=== PATIENT | male | born 1965 | race Hispanic/Latino ===

== ENCOUNTER 2017-08-31 09:46 | Emergency (ER) | payer MEDICAID ==
--- OUTSIDE RECORDS SUMMARY | 2017-08-31 09:48 | XMS REPORT | Clinical Summary ---
:1965 Author Organization [facility] Address [address] [place] [address] Care Team Providers Name Role Phone Db Jo Primary Care Provider Unavailable Allergies No Known Allergies Current Medications Prescription Sig. Disp. Refills Start Date End Date Status amLODIPine (NORVASC) 10 Take 10 mg by Active MG tablet mouth. carBAMazepine (TEGretol) Take 200 mg Active 200 mg tablet by mouth. escitalopram (LEXAPRO) 20 Take 20 mg by Active MG tablet mouth. gabapentin (NEURONTIN) Take 600 mg 10/29/2015 Active 600 MG tablet by mouth. hydrochlorothiazide Take 25 mg by Active (HYDRODIURIL) 25 MG mouth. tablet levETIRAcetam (KEPPRA) Take 500 mg Active 500 MG tablet by mouth. linaclotide (LINZESS) 145 Take by Active mcg capsule mouth. lisinopril Take 40 mg by Active (PRINIVIL,ZESTRIL) 40 MG mouth. tablet omeprazole OTC (PriLOSEC Take 20 mg by Active OTC) 20 MG EC tablet mouth. DOC-Q-LACE 100 mg capsule TAKE ONE 60 capsule 0 05/28/2016 Active CAPSULE BY MOUTH TWICE A DAY oxybutynin (DITROPAN) 5 Take 1 tablet 20 tablet 3 12/19/2015 MG tablet (5 mg total) 7 by mouth 3 (three) times a day. Active Problems Problem Noted Date Cancer of left kidney 01/28/2016 Kidney mass 01/28/2016 Left renal mass 12/27/2015 Calculus of kidney 11/16/2015 Left kidney mass 10/15/2015 Hepatitis C virus infection 10/15/2015 Immunizations Name Dates Previously Given Next Due INFLUENZA QUAD PF 12/28/2015 Family History Medical History Relation Name Comments No Known Problems Brother Prostate cancer Father No Known Problems Mother No Known Problems Sister Relation Name Status Comments Brother Alive Father Alive Mother Alive Sister Alive Social History Tobacco Use Types Packs/Day Years Used Date Light Tobacco Smoker Cigarettes 0.25 30 Tobacco Cessation: Ready to Quit: No; Counseling Given: Yes Alcohol Use Drinks/Week oz/Week Comments No Sex Assigned at Date Recorded Not on file Last Filed Vital Signs Not on file Plan of Treatment Health Maintenance Due Date Last Done Comments COLON CANCER SCREENING 09/21/2013 SHINGRIX VACCINE (#1) 09/21/2013 INFLUENZA VACCINE 09/16/2017 12/28/2015 Implants Implanted Type Area Suspect Artist Supervisor Device Expiration Model / Identifier Date Serial / Lot Hemostat Absrbl 4x4in Surgicel [place] - [id number] Cardiovascular ETHICON - [id number] / Implanted: Qty: 1 on 12/27/2015 by Flex Elizondo MD Implants / Stent Uretl S-Flx Kwart Retro-Inject 6fr 24cm - [id number] Peripheral or N/A: [employer] 02/16/2018 [id number] / Implanted: 12/17/2015 (Quantity not on file) Biliary Stents N/A / [id number] Clip Ligtng Hem-O-Adalid Endoscpc Aplr [facility] - [id number] Surgical N/A: WECK CLOSURE [id number] / Implanted: 12/27/2015 (Quantity not on file) Implants; N/A SYSTEMS / Expanders; Extenders; Surgical Wires Results Not on fileafter 08/30/2016 Insurance Payer Benefit Plan / Group Subscriber ID Type Phone Address [facility] [employer] [place] [address]
--- OUTSIDE RECORDS SUMMARY | 2017-08-31 09:48 | XMS REPORT | Clinical Summary ---
:1965 Author Organization [facility] Address [address] [place] [address] Phone Care Team Providers Name Role Phone Unavailable Primary Care Provider Unavailable Allergies Not on File Current Medications Not on file Active Problems Not on file Social History Tobacco Use Types Packs/Day Years Used Date Never Assessed Sex Assigned at Date Recorded Not on file Last Filed Vital Signs Not on file Plan of Treatment Not on file Results Not on fileafter 08/30/2016
--- NOTE | 2017-08-31 10:09 | ER ---
Nurse's Notes [facility] Name: Stef Dickson Age: 51 yrs Sex: Male : 1965 Arrival Date: 08/31/2017 Time: 09:49 Bed 24 Private MD: Db Ramirez Diagnosis: Irritant contact dermatitis Presentation: 08/31 09:52 Presenting complaint: Patient states: "I think I got into poison [place] or oak yesterday". aa5 Pt reports rash to whole body. Transition of care: patient was not received from another setting of care. Onset of symptoms was August 2017. Risk Assessment: Do you want to hurt yourself or someone else? Patient reports no desire to harm self or others. Initial Sepsis Screen: Does the patient meet any 2 criteria? No. Patient's initial sepsis screen is negative. Does the patient have a suspected source of infection? No. Patient's initial sepsis screen is negative. Care prior to arrival: None. 09:52 Method Of Arrival: Ambulatory aa5 09:52 Acuity: GLENN 4 aa5 Historical: - Allergies: 09:53 Seroquel; aa5 - PMHx: 09:53 Anxiety; AVM; Bipolar disorder; CVA; Headaches; Hypertension; Migraines; Seizures; aa5 - PSHx: 09:53 kidney cancer surgery; aa5 - Immunization history:: Adult Immunizations unknown. - Social history:: Smoking status: Patient uses tobacco products, smokes one pack cigarettes per day. - Ebola Screening: : No symptoms or risks identified at this time. Vital Signs: 09:54 BP 137 / 90; Pulse 71; Resp 18 S; Temp 97.6(TE); Pulse Ox 95% on R/A; Weight 84.82 kg aa5 (R); Height 5 ft. 5 in. (165.10 cm) (R); Pain 0/10; 09:54 Body Mass Index 31.12 (84.82 kg, 165.10 cm) aa5 ED Course: 09:49 Patient arrived in ED. mr 09:50 Db Ramirez MD is Private Physician. mr 09:53 Triage completed. aa5 09:53 Arm band placed on. aa5 09:56 Cat Tolentino FNP-C is [facility]. snw 09:56 Jasiel Stinson MD is Attending Physician. snw 10:07 Db Ramirez MD is Referral Physician. snw 10:12 Julius Decker, RN is Primary Nurse. sg 10:20 Patient did not have IV access during this emergency room visit. iw 10:20 No provider procedures requiring assistance completed. iw Administered Medications: 10:12 Drug: Pepcid 20 mg Route: PO; sg 10:20 Follow up: Response: No adverse reaction iw 10:12 Drug: ZyrTEC - Cetirizine 10 mg Route: PO; sg 10:20 Follow up: Response: No adverse reaction iw 10:12 Drug: predniSONE 20 mg Route: PO; sg 10:20 Follow up: Response: No adverse reaction iw Outcome: 10:09 Discharge ordered by . snw 10:20 Discharged to home ambulatory, with significant other. iw 10:20 Condition: stable 10:20 Discharge instructions given to patient, Instructed on discharge instructions, follow up and referral plans. medication usage, Demonstrated understanding of instructions, follow-up care, medications, Prescriptions given X 3. 10:22 Patient left the ED. iw Signatures: Julius Decker, RN RN Cat Tolentino, LEVEL VIAL INSPECTOR-C LEVEL VIAL INSPECTOR-Csnw Kimberly Juan mr Alena Lewis RN LEANA Patti Hopkins, RN RN aa5
--- NOTE | 2017-08-31 10:09 | EDPHYS ---
Physician Documentation [facility] Name: Stef Dickson Age: 51 yrs Sex: Male : 1965 Arrival Date: 08/31/2017 Time: 09:49 Bed 24 Private MD: Db Ramirez ED Physician Jasiel Stinson HPI: 08/31 10:16 This 51 yrs old Male presents to ER via Ambulatory with complaints of Poison snw Debbie. 10:16 The patient's rash thought to be caused by Dermatitis. The rash is located on the body snw diffusely. The rash can be described as erythematous, patchy. Onset: The symptoms/episode began/occurred suddenly, yesterday. Associated signs and symptoms: Pertinent positives: itching. Severity of symptoms: At their worst the symptoms were moderate. The patient has experienced a previous episode. It is unknown whether or not the patient has recently seen a physician. Historical: - Allergies: 09:53 Seroquel; aa5 - PMHx: 09:53 Anxiety; AVM; Bipolar disorder; CVA; Headaches; Hypertension; Migraines; Seizures; aa5 - PSHx: 09:53 kidney cancer surgery; aa5 - Immunization history:: Adult Immunizations unknown. - Social history:: Smoking status: Patient uses tobacco products, smokes one pack cigarettes per day. - Ebola Screening: : No symptoms or risks identified at this time. ROS: 10:17 Constitutional: Negative for fever, chills, and weight loss, Eyes: Negative for injury, snw pain, redness, and discharge, ENT: Negative for injury, pain, and discharge, Neck: Negative for injury, pain, and swelling, Cardiovascular: Negative for chest pain, palpitations, and edema, Respiratory: Negative for shortness of breath, cough, wheezing, and pleuritic chest pain, Abdomen/GI: Negative for abdominal pain, nausea, vomiting, diarrhea, and constipation, Back: Negative for injury and pain, : Negative for injury, bleeding, discharge, and swelling, MS/Extremity: Negative for injury and deformity, Neuro: Negative for headache, weakness, numbness, tingling, and seizure, Psych: Negative for depression, anxiety, suicide ideation, homicidal ideation, and hallucinations. 10:17 Skin: Positive for rash. Exam: 10:13 Head/Face: Normocephalic, atraumatic. Eyes: Pupils equal round and reactive to light, snw extra-ocular motions intact. Lids and lashes normal. Conjunctiva and sclera are non-icteric and not injected. Cornea within normal limits. Periorbital areas with no swelling, redness, or edema. ENT: Nares patent. No nasal discharge, no septal abnormalities noted. Tympanic membranes are normal and external auditory canals are clear. Oropharynx with no redness, swelling, or masses, exudates, or evidence of obstruction, uvula midline. Mucous membranes moist. Neck: Trachea midline, no thyromegaly or masses palpated, and no cervical lymphadenopathy. Supple, full range of motion without nuchal rigidity, or vertebral point tenderness. No Meningismus. Chest/axilla: Normal chest wall appearance and motion. Nontender with no deformity. No lesions are appreciated. Cardiovascular: Regular rate and rhythm with a normal S1 and S2. No gallops, murmurs, or rubs. Normal PMI, no JVD. No pulse deficits. Respiratory: Lungs have equal breath sounds bilaterally, clear to auscultation and percussion. No rales, rhonchi or wheezes noted. No increased work of breathing, no retractions or nasal flaring. Abdomen/GI: Soft, non-tender, with normal bowel sounds. No distension or tympany. No guarding or rebound. No evidence of tenderness throughout. Back: No spinal tenderness. No costovertebral tenderness. Full range of motion. MS/ Extremity: Pulses equal, no cyanosis. Neurovascular intact. Full, normal range of motion. Neuro: Awake and alert, GCS 15, oriented to person, place, time, and situation. Cranial nerves II-XII grossly intact. Motor strength 5/5 in all extremities. Sensory grossly intact. Cerebellar exam normal. Normal gait. 10:13 Constitutional: The patient appears alert, awake, anxious. 10:13 Skin: Appearance: normal except for affected area, contact dermatitis. Vital Signs: 09:54 BP 137 / 90; Pulse 71; Resp 18 S; Temp 97.6(TE); Pulse Ox 95% on R/A; Weight 84.82 kg aa5 (R); Height 5 ft. 5 in. (165.10 cm) (R); Pain 0/10; 09:54 Body Mass Index 31.12 (84.82 kg, 165.10 cm) aa5 MDM: 10:09 Patient medically screened. snw 10:13 Data reviewed: vital signs, nurses notes. Data interpreted: Pulse oximetry: on room air snw is 95 %. Interpretation: acceptable. Counseling: I had a detailed discussion with the patient and/or guardian regarding: the historical points, exam findings, and any diagnostic results supporting the discharge/admit diagnosis, the presence of at least one elevated blood pressure reading (>120/80) during this emergency department visit, the need for outpatient follow up, to return to the emergency department if symptoms worsen or persist or if there are any questions or concerns that arise at home. Special discussion: Based on the history and exam findings, there is no indication for further emergent testing or inpatient evaluation. I discussed with the patient/guardian the need to see the primary care provider for further evaluation of the symptoms. Medical screen evaluation completed. [facility] emergency medical condition absent. Administered Medications: 10:12 Drug: Pepcid 20 mg Route: PO; sg 10:20 Follow up: Response: No adverse reaction iw 10:12 Drug: ZyrTEC - Cetirizine 10 mg Route: PO; sg 10:20 Follow up: Response: No adverse reaction iw 10:12 Drug: predniSONE 20 mg Route: PO; sg 10:20 Follow up: Response: No adverse reaction iw Disposition: 08/31/17 10:09 Discharged to Home. Impression: Irritant contact dermatitis. - Condition is Stable. - Discharge Instructions: Contact Dermatitis, Hypertension. - Prescriptions for Pepcid 20 mg Oral Tablet - take 1 tablet by ORAL route every 12 hours for 10 days; 20 tablet. Zyrtec 10 mg Oral Tablet - take 1 tablet by ORAL route once daily As needed; 20 tablet. Prednisone 20 mg Oral Tablet - take 2 tablet by ORAL route once daily for 5 days; 10 tablet. - Medication Reconciliation Form, Thank You Letter, Antibiotic Education, Prescription Opioid Use form. - Follow up: Db Ramirez MD; When: 2 - 3 days; Reason: Recheck today's complaints, Continuance of care, Re-evaluation by your physician. Follow up: Emergency Department; When: As needed; Reason: Worsening of condition. Addendum: 09/03/2017 06:15 Co-signature as Attending Physician, Jasiel Stinson MD. g s Signatures: Julius Decker RN RN sg Cat Tolentino, SOLID WASTE ENGINEER-C SOLID WASTE ENGINEER-Csnw Alena Lewis RN RN iw Patti Hopkins RN RN aa5 Jasiel Stinson MD MD gs Corrections: (The following items were deleted from the chart) 08/31 10:22 10:09 08/31/2017 10:09 Discharged to Home. Impression: Irritant contact dermatitis. iw Condition is Stable. Forms are Medication Reconciliation Form, Thank You Letter, Antibiotic Education, Prescription Opioid Use. Follow up: Db Ramirez; When: 2 - 3 days; Reason: Recheck today's complaints, Continuance of care, Re-evaluation by your physician. Follow up: Emergency Department; When: As needed; Reason: Worsening of condition. snw
[2017-08-31] MEDS ORDERED: predniSONE 10 MG TAB ONE (10:12)
[2017-08-31] MEDS ORDERED: CETIRIZINE HCL 5 MG TABLET ONE (10:12)
[2017-08-31] MEDS ORDERED: FAMOTIDINE 20 MG TAB ONE (10:13)
[2017-08-31 10:27] VITALS: BP 137/90; TEMP 97.6; O2SAT 95
== END 2017-08-31 10:22 | disposition home or self-care (01) ==
LOC: ER 09:46
DX: L23.7 Allergic contact dermatitis due to plants, except food (principal); I10 Essential (primary) hypertension; F17.210 Nicotine dependence, cigarettes, uncomplicated; Z86.73 Personal history of transient ischemic attack (TIA), and cerebral infarction without residual deficits; Z88.8 Allergy status to other drugs, medicaments and biological substances
CPT/HCPCS: 99283; J7512

== ENCOUNTER 2018-07-05 02:27 | Emergency (ER) | payer MEDICAID ==
--- OUTSIDE RECORDS SUMMARY | 2018-07-05 02:31 | XMS REPORT | Clinical Summary ---
:1965 Author Organization [facility] Address [address] [place] [address] Care Team Providers Name Role Phone Unavailable Primary Care Provider Unavailable Allergies Not on File Medications Not on file Active Problems Not on file Social History Tobacco Use Types Packs/Day Years Used Date Never Assessed Sex Assigned at Date Recorded Not on file Job Start Date Occupation Industry Not on file Not on file Not on file Travel History Travel Start Travel End No recent travel history available. Last Filed Vital Signs Not on file Plan of Treatment Not on file Results Not on fileafter 07/04/2017 Insurance Payer Benefit Plan / Group Subscriber ID Type Phone Address [employer] [place] xxxxxxxxx
--- OUTSIDE RECORDS SUMMARY | 2018-07-05 02:31 | XMS REPORT | Clinical Summary ---
:1965 Author Organization [facility] Address [address] [place] [address] Care Team Providers Name Role Phone Db Jo Primary Care Provider Unavailable Allergies No Known Allergies Medications Medication Sig Dispensed Refills Start Date End Date Status amLODIPine (NORVASC) 10 MG Take 10 mg by 0 Active tablet mouth. carBAMazepine (TEGretol) Take 200 mg 0 Active 200 mg tablet by mouth. escitalopram (LEXAPRO) 20 Take 20 mg by 0 Active MG tablet mouth. gabapentin (NEURONTIN) 600 Take 600 mg 0 10/29/2015 Active MG tablet by mouth. hydrochlorothiazide Take 25 mg by 0 Active (HYDRODIURIL) 25 MG tablet mouth. levETIRAcetam (KEPPRA) 500 Take 500 mg 0 Active MG tablet by mouth. linaclotide (LINZESS) 145 Take by 0 Active mcg capsule mouth. lisinopril Take 40 mg by 0 Active (PRINIVIL,ZESTRIL) 40 MG mouth. tablet omeprazole OTC (PriLOSEC Take 20 mg by 0 Active OTC) 20 MG EC tablet mouth. DOC-Q-LACE 100 mg capsule TAKE ONE 60 capsule 0 05/28/2016 Active CAPSULE BY MOUTH TWICE A DAY Active Problems Problem Noted Date Cancer of left kidney 01/28/2016 Cancer Staging: Pathologic stage from 12/27/2015: Stage I (T1b, N0, cM0) - Signed by Flex Elizondo on 06/25/2016 Kidney mass 01/28/2016 Left renal mass 12/27/2015 [...] Last Done Comments COLON CANCER SCREENING 09/21/2013 SHINGLES VACCINES (#1) 09/21/2013 INFLUENZA VACCINE 09/16/2018 12/28/2015, 01/16/2014 Implants Implanted Type Area Food Safety Scientist Device Shelf Model / Identifier Expiration Serial / Date Lot Hemostat Absrbl 4x4in Surgicel [place] - [id number] Cardiovascular ETHICON - 2083 / Implanted: Qty: 1 on 12/27/2015 by Flex Elizondo MD Implants / Stent Uretl S-Flx Kwart Retro-Inject 6fr 24cm - [id number] Peripheral or N/A: [employer] 02/16/2018 [id number] / Implanted: 12/17/2015 (Quantity not on file) Biliary Stents N/A / [id number] Clip Ligtng Hem-O-Adalid Endoscpc Aplr [facility] - [id number] Surgical N/A: WECK CLOSURE [id number] / Implanted: 12/27/2015 (Quantity not on file) Implants; N/A SYSTEMS / Expanders; Extenders; Surgical Wires Results Not on fileafter 07/04/2017 Advance Directives Patient has advance care planning documents, and code status on file. For more information, please contact:[address] [place] [address] Code Status Date Activated Date Inactivated Comments Full Code 12/27/2015 3:52 PM 12/29/2015 2:44 PM Code Status decision reached by: Patient
--- OUTSIDE RECORDS SUMMARY | 2018-07-05 02:31 | XMS REPORT ---
:1965 Author Organization [employer] Care Team Providers Name Role Phone Melvin James Provider Role Unavailable Allergies No Known Allergies Problems Problem Type Condition Code Onset Dates Condition Status Problem History of renal cell carcinoma Z85.528 Active Problem Gastroesophageal reflux disease K21.9 Active without esophagitis Problem Bipolar affective disorder, F31.9 Active remission status unspecified Problem Seizures R56.9 Active Problem Essential (primary) hypertension I10 Active Problem Hypertriglyceridemia E78.1 Active Problem Chronic hepatitis C without hepatic B18.2 Active coma Problem Primary insomnia F51.01 Active Problem Depression with anxiety F41.8 Active Problem History of stroke Z86.73 Active Medications No Known Medications Results No Known Results Summary Purpose [employer] Submission
[2018-07-05 03:19] LABS: Absolute Lymphocytes (CBC) 1.2 K/uL (0.7-4.9); Absolute Monocytes 1.1 K/uL (0.1-1.3); Absolute Neutrophil 8.3 K/uL (1.8-8.0); Basophils % 0.7 % (0-1.3); Eosinophils % 0.8 % (0-4.4); Hematocrit 47.7 % (39.6-49.0); Lymphocytes % 11.3 % (15.3-44.8); MPV 7.4 fL (7.6-11.3); Monocytes % 10.5 % (3.3-12.3); RBC Red Blood Cell Count 5.23 M/uL (4.33-5.43)
[2018-07-05] MEDS ORDERED: MORPHINE 2 MG/ML SYR ONE (03:29)
[2018-07-05] MEDS ORDERED: ONDANSETRON 4 MG/2 ML VIAL ONE (03:30)
[2018-07-05] MEDS ORDERED: NA CHLORIDE 0.9% 1,000 ML ONE (03:30)
[2018-07-05 03:37] LABS: ALT/SGPT 42 U/L (12-78); AST/SGOT 33 U/L (15-37); Albumin 3.7 g/dL (3.4-5.0); Alkaline Phosphatase 81 U/L (45-117); BUN Blood Urea Nitrogen 16 mg/dL (7-18); Bicarbonate 28 mmol/L (21-32); Bilirubin Total 0.4 mg/dL (0.2-1.0); Glucose Level 82 mg/dL (74-106); Potassium 3.6 mmol/L (3.5-5.1); Protein, Total 7.8 g/dL (6.4-8.2); Sodium Level 141 mmol/L (136-145)
--- NOTE | 2018-07-05 05:28 | EDPHYS ---
Physician Documentation [facility] Name: Stef Dickson Age: 52 yrs Sex: Male : 1965 Arrival Date: 07/05/2018 Time: 02:31 Bed 14 Private MD: ED Physician Zander Brower HPI: 07/05 04:22 This 52 yrs old Male presents to ER via Wheelchair with complaints of Leg Pain.tw4 04:22 The patient presents with pain. The complaints affect the left upper thigh, right upper tw4 thigh. Context: The problem was sustained at home, resulted from an unknown cause. Onset: The symptoms/episode began/occurred 2 day(s) ago. Modifying factors: The symptoms are alleviated by remaining still, the symptoms are aggravated by movement. Severity of symptoms: At their worst the symptoms were moderate, in the emergency department the symptoms are unchanged. Historical: - Allergies: 02:35 Seroquel; jb4 - Home Meds: 02:35 gabapentin Oral [Active]; hypertension medication for High Blood Pressure [Active]; jb4 Trazodone Oral [Active]; Lexapro Oral [Active]; - PMHx: 02:35 Anxiety; AVM; Bipolar disorder; CVA; Headaches; Hypertension; Migraines; Seizures; jb4 - PSHx: 02:35 brain surgery.; partial kidney removal; jb4 - Immunization history:: Adult Immunizations up to date. - Social history:: Smoking status: Patient uses tobacco products, smokes one-half pack cigarettes per day, Patient uses alcohol, occasionally. - Ebola Screening: : No symptoms or risks identified at this time. ROS: 04:22 Constitutional: Negative for fever, chills, and weight loss, Cardiovascular: Negative tw4 for chest pain, palpitations, and edema, Respiratory: Negative for shortness of breath, cough, wheezing, and pleuritic chest pain, Abdomen/GI: Negative for abdominal pain, nausea, vomiting, diarrhea, and constipation, Skin: Negative for injury, rash, and discoloration. 04:22 MS/extremity: Positive for decreased range of motion, pain, tenderness. Exam: 04:22 Constitutional: This is a well developed, well nourished patient who is awake, alert, tw4 and in no acute distress. Head/Face: Normocephalic, atraumatic. Chest/axilla: Normal chest wall appearance and motion. Nontender with no deformity. No lesions are appreciated. Cardiovascular: Regular rate and rhythm with a normal S1 and S2. No gallops, murmurs, or rubs. Normal PMI, no JVD. No pulse deficits. Respiratory: Lungs have equal breath sounds bilaterally, clear to auscultation and percussion. No rales, rhonchi or wheezes noted. No increased work of breathing, no retractions or nasal flaring. Abdomen/GI: Soft, non-tender, with normal bowel sounds. No distension or tympany. No guarding or rebound. No evidence of tenderness throughout. 04:22 Musculoskeletal/extremity: Extremities: noted in the right femoral area, left femoral area, left hip and right hip: ROM: limited active range of motion due to pain, limited passive range of motion due to pain, in the right leg and left leg. Vital Signs: 02:35 BP 146 / 89; Pulse 91; Resp 18; Temp 98.8(O); Pulse Ox 98% on R/A; Weight 72.57 kg (R); jb4 Height 5 ft. 4 in. (162.56 cm) (R); Pain 1/10; 03:30 BP 149 / 81; Pulse 78; Resp 16; Pulse Ox 99% on R/A; jb4 04:45 BP 149 / 80; Pulse 82; Resp 16; Pulse Ox 94% on R/A; jb4 05:00 BP 147 / 70; Pulse 87; Resp 18; Pulse Ox 99% on R/A; lp1 05:42 BP 135 / 86; Pulse 84; Resp 18; Pulse Ox 98% on R/A; lp1 02:35 Body Mass Index 27.46 (72.57 kg, 162.56 cm) jb4 MDM: 02:44 Patient medically screened. 4 07/05 03:06 Order name: CBC with Diff 4 07/05 03:06 Order name: CMP 4 07/05 03:06 Order name: CT Abd/Pelvis - W/Contrast tw4 Administered Medications: 03:20 Drug: NS 0.9% 1000 ml Route: IV; Rate: 1 bolus; Site: right wrist; 4 04:30 Follow up: Response: No adverse reaction; IV Status: Completed infusion; IV Intake: jb4 1000ml 03:22 Drug: Zofran 4 mg Route: IVP; Site: right wrist; jb4 03:50 Follow up: Response: No adverse reaction jb4 03:26 Drug: morphine 2 mg Route: IVP; Site: right wrist; jb4 03:50 Follow up: Response: No adverse reaction; Pain is unchanged, physician notified jb4 Disposition: 07/05/18 05:28 Discharged to Home. Impression: Constipation, unspecified. - Condition is Stable. - Discharge Instructions: Constipation, Adult, High-Fiber Diet. - Prescriptions for Miralax 17 gram/dose Oral - take 1 packet by ORAL route once daily dilute powder in 8 ounces of water or juice; 1 packet. - Medication Reconciliation Form, Thank You Letter, Antibiotic Education, Prescription Opioid Use form. - Follow up: Private Physician; When: Upon discharge from the Emergency Department; Reason: If symptoms return, Recheck today's complaints, Continuance of care. - Problem is new. - Symptoms have improved. Signatures: Dispatcher [employer] EDMD Brenda Green RN RN lp1 Josr Kilgore RN RN jb4 Zander Brower MD MD tw4 Corrections: (The following items were deleted from the chart) 05:43 05:28 07/05/2018 05:28 Discharged to Home. Impression: Constipation, unspecified. lp1 Condition is Stable. Forms are Medication Reconciliation Form, Thank You Letter, Antibiotic Education, Prescription Opioid Use. Follow up: Private Physician; When: Upon discharge from the Emergency Department; Reason: If symptoms return, Recheck today's complaints, Continuance of care. Problem is new. Symptoms have improved. tw4
--- NOTE | 2018-07-05 05:28 | ER ---
Nurse's Notes [facility] Name: Stef Dickson Age: 52 yrs Sex: Male : 1965 Arrival Date: 07/05/2018 Time: 02:31 Bed 14 Private MD: Diagnosis: Constipation, unspecified Presentation: 07/05 02:35 Presenting complaint: Patient states: I have leg pain that started 2 days ago. jb4 02:35 Transition of care: patient was not received from another setting of care. Onset of jb4 symptoms was July 03, 2018. Risk Assessment: Do you want to hurt yourself or someone else? Patient reports no desire to harm self or others. Initial Sepsis Screen: Does the patient meet any 2 criteria? HR > 90 bpm. Yes Does the patient have a suspected source of infection? No. Patient's initial sepsis screen is negative. Care prior to arrival: None. 02:35 Method Of Arrival: Wheelchair jb4 02:35 Acuity: GLENN 4 jb4 Historical: - Allergies: 02:35 Seroquel; jb4 - Home Meds: 02:35 gabapentin Oral [Active]; hypertension medication for High Blood Pressure [Active]; jb4 Trazodone Oral [Active]; Lexapro Oral [Active]; - PMHx: 02:35 Anxiety; AVM; Bipolar disorder; CVA; Headaches; Hypertension; Migraines; Seizures; jb4 - PSHx: 02:35 brain surgery.; partial kidney removal; jb4 - Immunization history:: Adult Immunizations up to date. - Social history:: Smoking status: Patient uses tobacco products, smokes one-half pack cigarettes per day, Patient uses alcohol, occasionally. - Ebola Screening: : No symptoms or risks identified at this time. Screenin:48 Abuse screen: Denies threats or abuse. Nutritional screening: No deficits noted. jb4 Tuberculosis screening: No symptoms or risk factors identified. Fall Risk Gait- Impaired (20 pts.). Total Madden Fall Scale indicates No Risk (0-24 pts). Assessment: 02:48 General: Appears in no apparent distress. uncomfortable, Behavior is calm, cooperative, jb4 appropriate for age, Pt reports lifting heavy pallets 2 days ago prior to having pain. Pt states " Earlier tonight I saw bulging veins when it was hurting.". Pain: Complains of pain in right femoral area and left femoral area Pain does not radiate. Pain currently is 1 out of 10 on a pain scale. at worst was 10 out of 10 on a pain scale. Quality of pain is described as stabbing, Pain began 2-3 days ago. Is intermittent. Neuro: Level of Consciousness is awake, alert, obeys commands, Oriented to person, place, time, situation. Cardiovascular: Patient's skin is warm and dry. Respiratory: Airway is patent Respiratory effort is even, unlabored, Respiratory pattern is regular, symmetrical. GI: No signs and/or symptoms were reported involving the gastrointestinal system. : No signs and/or symptoms were reported regarding the genitourinary system. EENT: No signs and/or symptoms were reported regarding the EENT system. Derm: Skin is intact, Skin is pink, warm \\T\\ dry. Musculoskeletal: Circulation, motion, and sensation intact. Range of motion: intact in all extremities. 03:28 Reassessment: Patient appears in no apparent distress at this time. Patient and/or jb4 family updated on plan of care and expected duration. Pain level reassessed. Patient is alert, oriented x 3, equal unlabored respirations, skin warm/dry/pink. 03:50 Reassessment: Pt reports that the pain medication did not help, provider notified, no jb4 new orders at this time. 04:30 Reassessment: Patient appears in no apparent distress at this time. Patient and/or jb4 family updated on plan of care and expected duration. Pain level reassessed. Patient is alert, oriented x 3, equal unlabored respirations, skin warm/dry/pink. 05:15 Reassessment: Patient resting, eyes closed, respirations unlabored. lp1 Vital Signs: 02:35 BP 146 / 89; Pulse 91; Resp 18; Temp 98.8(O); Pulse Ox 98% on R/A; Weight 72.57 kg (R); jb4 Height 5 ft. 4 in. (162.56 cm) (R); Pain 02/25; 03:30 BP 149 / 81; Pulse 78; Resp 16; Pulse Ox 99% on R/A; jb4 04:45 BP 149 / 80; Pulse 82; Resp 16; Pulse Ox 94% on R/A; jb4 05:00 BP 147 / 70; Pulse 87; Resp 18; Pulse Ox 99% on R/A; lp1 05:42 BP 135 / 86; Pulse 84; Resp 18; Pulse Ox 98% on R/A; lp1 02:35 Body Mass Index 27.46 (72.57 kg, 162.56 cm) jb4 ED Course: 02:31 Patient arrived in ED. es 02:35 Josr Kilgore, RN is Primary Nurse. jb4 02:35 Arm band placed on right wrist. jb4 02:42 Zander Brower MD is Attending Physician. tw4 02:43 Triage completed. jb4 02:48 Patient has correct armband on for positive identification. Placed in gown. Bed in low jb4 position. Call light in reach. Side rails up X 1. Pulse ox on. NIBP on. 03:00 Initial lab(s) drawn, by me, sent to lab. Inserted saline lock: 20 gauge in right jb4 wrist, using aseptic technique. Blood collected. 03:32 Radiology exam delayed due to lab results not completed at this time. (BUN/Creatinine). kw1 04:17 CT Abd/Pelvis - W/Contrast In Process Unspecified. EDMS 05:00 Report received from Ej Kilgore RN. lp1 05:42 No provider procedures requiring assistance completed. IV discontinued, No lp1 redness/swelling at site. Pressure dressing applied. Administered Medications: 03:20 Drug: NS 0.9% 1000 ml Route: IV; Rate: 1 bolus; Site: right wrist; jb4 04:30 Follow up: Response: No adverse reaction; IV Status: Completed infusion; IV Intake: jb4 1000ml 03:22 Drug: Zofran 4 mg Route: IVP; Site: right wrist; jb4 03:50 Follow up: Response: No adverse reaction jb4 03:26 Drug: morphine 2 mg Route: IVP; Site: right wrist; jb4 03:50 Follow up: Response: No adverse reaction; Pain is unchanged, physician notified jb4 Intake: 04:30 IV: 1000ml; Total: 1000ml. jb4 Outcome: 05:28 Discharge ordered by . tw4 05:42 Discharged to home with family. lp1 05:42 Condition: good 05:42 Discharge instructions given to patient, Instructed on discharge instructions, follow up and referral plans. medication usage, Demonstrated understanding of instructions, follow-up care, medications, Prescriptions given X 1. 05:43 Patient left the ED. lp1 Signatures: Dispatcher [employer] EDIlana Maloney Laura, RN RN lp1 Josr Kilgore RN RN jb4 Diane Morataya kw1 Zander Brower MD MD tw4 Corrections: (The following items were deleted from the chart) 05:42 05:37 BP 147 / 70; Pulse 87bpm; Resp 18bpm; Pulse Ox 99% RA; lp1 lp1
[2018-07-05 05:49] VITALS: TEMP 98.8
[2018-07-05 05:55] VITALS: BP 135/86; O2SAT 98
--- NOTE | 2018-07-05 11:30 | RAD REPORT ---
EXAM DESCRIPTION: CT - Abdomen Pelvis W Contrast - 07/05/2018 4:17 am CLINICAL HISTORY: Leg pain COMPARISON: CT abdomen and pelvis 01/25/2012. TECHNIQUE: Axial [address] imaging of the abdomen and pelvis performed utilizing intravenous contrast. Reformatted coronal and sagittal images reviewed. A dose reduction technique was utilized with automated exposure control according to patient size. FINDINGS: LOWER THORAX: Clear lung bases. Heart is normal in size. No pericardial fluid. ABDOMEN: LIVER/GALLBLADDER: Decreased attenuation of the liver due to mild fatty infiltration. No liver mass. . Gallbladder has been resected. The common bile duct is 1.2 cm. No duct stone. SPLEEN/PANCREAS: Normal spleen. Normal pancreas. KIDNEYS/ADRENAL GLANDS: Normal right adrenal gland. Left adrenal is mildly thickened without discret e nodule. Both kidneys contain nonobstructing calculi up to 3 mm. No perinephric edema. Anterior left renal cortical thinning due to prior partial nephrectomy for mass resection. Mild left renal pelvic distention. AP pelvis is 1.6 cm. RETROPERITONEAL VESSELS/NODES: Normal aorta and inferior vena cava caliber. No adenopathy. Mesenteri c vessels are well-opacified. BOWEL: Normal stomach. The small bowel caliber is within normal limits. Normal appendix along the ri t pelvic sidewall. Moderate fecal loading throughout the colon. Mild sigmoid colon diverticulosis. No diverticulitis. MESENTERY/PERITONEUM: No adenopathy. No ascites. PELVIS: BLADDER: Normal bladder. GENITAL ORGANS: Normal prostate. PERITONEUM: No pelvic free fluid or adenopathy. BONES AND SOFT TISSUES: Moderate thoracolumbar spondylosis. Intact bony pelvis. Normal hips. IMPRESSION: 1. Constipation. 2. Mild sigmoid colon diverticulosis. No diverticulitis. 3. Mild postcholecystectomy biliary dilatation. Mild hepatic steatosis. 4. Bilateral nonobstructing intrarenal calculi. Mild left renal pelvic distention with no obstructing stone. Status post partial anterior left nephrectomy.. 5. No abnormality within the abdomen and pelvis to account for lower extremity pain or swelling. Electronically signed by: Angela Krause DO 07/05/2018 4:56 AM CDT Due to temporary technical issues with the PACS/Fluency reporting system, reports are being signed by the in house radiologist as a courtesy to ensure prompt reporting. The interpreting radiologist is f ully responsible for the content of the report.
== END 2018-07-05 05:43 | disposition home or self-care (01) ==
LOC: ER 02:27
DX: K59.00 Constipation, unspecified (principal); M79.604 Pain in right leg; I10 Essential (primary) hypertension; G40.909 Epilepsy, unspecified, not intractable, without status epilepticus; F31.9 Bipolar disorder, unspecified; F41.9 Anxiety disorder, unspecified; F17.210 Nicotine dependence, cigarettes, uncomplicated; Z86.73 Personal history of transient ischemic attack (TIA), and cerebral infarction without residual deficits; Z88.8 Allergy status to other drugs, medicaments and biological substances
CPT/HCPCS: 36415; 74177; 80053; 85025; 96361; 96374; 96375; 99284; J2270; J2405; J7030; Q9967

== ENCOUNTER 2018-09-14 11:26 | Emergency (ER) | payer MEDICAID ==
--- OUTSIDE RECORDS SUMMARY | 2018-09-14 11:29 | XMS REPORT | Clinical Summary ---
:1965 Author Organization [facility] Address [address] [place] [address] Care Team Providers Name Role Phone Db [...] Health Maintenance Due Date Last Done Comments COLONOSCOPY SCREENING 09/21/2013 SHINGLES VACCINES (#1) 09/21/2013 INFLUENZA VACCINE 09/16/2018 12/28/2015, 01/16/2014 Implants Implanted Type Area Medical Tech Device Shelf Model / Identifier Expiration Serial / Date Lot Hemostat Absrbl 4x4in Surgicel Thompson - [id number] Cardiovascular ETHICON - [id number] / Implanted: Qty: 1 on 12/27/2015 by Flex Elizondo MD Implants / Stent Uretl S-Flx Kwart Retro-Inject 6fr 24cm - [id number] Peripheral or N/A: [employer] 02/16/2018 [id number] / Implanted: 12/17/2015 (Quantity not on file) Biliary Stents N/A / [id number] Clip Ligtng Hem-O-Adalid Endoscpc Aplr [employer] [facility] - [id number] Surgical N/A: WECK CLOSURE [id number] / Implanted: 12/27/2015 (Quantity not on file) Implants; N/A SYSTEMS / Expanders; Extenders; Surgical Wires Results Not on fileafter 09/13/2017 Advance Directives Patient has advance care planning documents, and code status on file. For more information, please contact:[place] [address] Code Status Date Activated Date Inactivated Comments Full Code 12/27/2015 3:52 PM 12/29/2015 2:44 PM Code Status decision reached by: Patient
--- OUTSIDE RECORDS SUMMARY | 2018-09-14 11:29 | XMS REPORT | Clinical Summary ---
:1965 Author Organization [facility] Address [address] [place] [address] Care Team Providers Name Role Phone Unavailable [...] Not on file Results Not on fileafter 09/13/2017 Insurance Payer Benefit Plan / Group Subscriber ID Type Phone Address [place] MEDICAID [place] xxxxxxxxx
--- NOTE | 2018-09-14 11:49 | ER ---
Nurse's Notes [facility] Name: Stef Dickson Age: 52 yrs Sex: Male : 1965 Arrival Date: 09/14/2018 Time: 11:29 Bed 12 Private MD: None, None Diagnosis: Allergic contact dermatitis Presentation: 09/14 11:32 Presenting complaint: Patient states: i have been exposed to poison [place] and poison oak hj a week ago and i had rash all over my body including my groin area; denies SOB;. Transition of care: patient was not received from another setting of care. Onset: The symptoms/episode began/occurred last week. Anaphylaxis evaluation, no signs or symptoms of anaphylaxis were noted. Onset of symptoms was September 14, 2018. Risk Assessment: Do you want to hurt yourself or someone else? Patient reports no desire to harm self or others. Initial Sepsis Screen: Does the patient meet any 2 criteria? No. Patient's initial sepsis screen is negative. Does the patient have a suspected source of infection? No. Patient's initial sepsis screen is negative. Care prior to arrival: None. 11:32 Method Of Arrival: Ambulatory 11:32 Acuity: GLENN 4 hj Historical: - Allergies: 11:34 Seroquel; hj - PMHx: 11:34 Anxiety; AVM; Bipolar disorder; CVA; Headaches; Hypertension; Migraines; Seizures; hj - PSHx: 11:34 brain surgery.; partial kidney removal; hj - Immunization history:: Adult Immunizations unknown. - Social history:: Smoking status: Patient/guardian denies using tobacco. - Ebola Screening: : Patient negative for fever greater than or equal to 101.5 degrees Fahrenheit, and additional compatible Ebola Virus Disease symptoms Patient denies exposure to infectious person Patient denies travel to an Ebola-affected area in the 21 days before illness onset No symptoms or risks identified at this time. Screenin:58 Abuse screen: Denies threats or abuse. Denies injuries from another. Nutritional iw screening: No deficits noted. Tuberculosis screening: No symptoms or risk factors identified. Fall Risk None identified. Assessment: 11:57 General: Appears in no apparent distress. Behavior is calm, cooperative. Pain: Denies iw pain. Neuro: Level of Consciousness is awake, alert, obeys commands. Respiratory: Airway is patent Respiratory effort is even, unlabored, Breath sounds are clear bilaterally. Derm: Skin is intact, is healthy with good turgor. Vital Signs: 11:34 BP 155 / 95; Pulse 70; Resp 18; Temp 97.9(TE); Pulse Ox 99% ; Weight 79.38 kg; Height 5 hj ft. 5 in. (165.10 cm); Pain 0/10; 11:34 Body Mass Index 29.12 (79.38 kg, 165.10 cm) ED Course: 11:29 Patient arrived in ED. dp 11:29 None, None is Private Physician. dp 11:34 Triage completed. hj 11:34 Arm band placed on left wrist. hj 11:36 Alena Lewis, RN is Primary Nurse. iw 11:38 Nick Aaron MD is Attending Physician. kdr 11:57 No provider procedures requiring assistance completed. Patient did not have IV access iw during this emergency room visit. Administered Medications: No medications were administered Outcome: 11:48 Discharge ordered by . kdr 11:57 Discharged to home ambulatory. iw 11:57 Condition: good 11:57 Discharge instructions given to patient, Instructed on discharge instructions, follow up and referral plans. Demonstrated understanding of instructions, follow-up care, Prescriptions given X 3. 11:58 Patient left the ED. iw Signatures: Nick Aaron MD MD kdr Alena Lewis RN RN Isidro Montoya RN RN Bruno Green dp Corrections: (The following items were deleted from the chart) 11:36 11:34 Pulse 70bpm; Resp 18bpm; Pulse Ox 99%; Temp 97.9F Temporal; 79.38 kg; Height 5 hj ft. 5 in.; BMI: 29.1; Pain 0/10; hj
--- NOTE | 2018-09-14 11:49 | EDPHYS ---
Physician Documentation [facility] Name: Stef Dickson Age: 52 yrs Sex: Male : 1965 Arrival Date: 09/14/2018 Time: 11:29 Bed 12 Private MD: None, None ED Physician Nick Aaron HPI: 09/14 11:53 This 52 yrs old Male presents to ER via Ambulatory with complaints of Allergic kdr Reaction. 11:53 The patient presents with itching, rash, that is diffuse. Onset: The symptoms/episode kdr began/occurred gradually, 1 week(s) ago. Associated signs and symptoms: The patient has no apparent associated signs or symptoms. Possible causes: poison [place], poison oak. At home the patient or guardian has treated the symptoms with nothing. Severity of symptoms: At their worst the symptoms were mild in the emergency department the symptoms are unchanged. The patient has experienced similar episodes in the past, multiple times. The patient has not recently seen a physician. Historical: - Allergies: 11:34 Seroquel; hj - PMHx: 11:34 Anxiety; AVM; Bipolar disorder; CVA; Headaches; Hypertension; Migraines; Seizures; hj - PSHx: 11:34 brain surgery.; partial kidney removal; hj - Immunization history:: Adult Immunizations unknown. - Social history:: Smoking status: Patient/guardian denies using tobacco. - Ebola Screening: : Patient negative for fever greater than or equal to 101.5 degrees Fahrenheit, and additional compatible Ebola Virus Disease symptoms Patient denies exposure to infectious person Patient denies travel to an Ebola-affected area in the 21 days before illness onset No symptoms or risks identified at this time. ROS: 11:53 Constitutional: Negative for fever, chills, and weight loss, Eyes: Negative for injury, kdr pain, redness, and discharge, ENT: Negative for injury, pain, and discharge, Neck: Negative for injury, pain, and swelling, Cardiovascular: Negative for chest pain, palpitations, and edema, Respiratory: Negative for shortness of breath, cough, wheezing, and pleuritic chest pain, Abdomen/GI: Negative for abdominal pain, nausea, vomiting, diarrhea, and constipation, Back: Negative for injury and pain, : Negative for injury, bleeding, discharge, and swelling, MS/Extremity: Negative for injury and deformity, Neuro: Negative for headache, weakness, numbness, tingling, and seizure activity. Psych: Negative for depression, anxiety, suicide ideation, homicidal ideation, and hallucinations, Allergy/Immunology: Negative for hives, rash, and allergies, Endocrine: Negative for neck swelling, polydipsia, polyuria, polyphagia, and marked weight changes, Hematologic/Lymphatic: Negative for swollen nodes, abnormal bleeding, and unusual bruising. 11:53 Skin: Positive for rash, Negative for abscesses, diaphoresis, discoloration. Exam: 11:53 Constitutional: This is a well developed, well nourished patient who is awake, alert, kdr and in no acute distress. Head/Face: Normocephalic, atraumatic. Eyes: Pupils equal round and reactive to light, extra-ocular motions intact. Lids and lashes normal. Conjunctiva and sclera are non-icteric and not injected. Cornea within normal limits. Periorbital areas with no swelling, redness, or edema. Neck: Trachea midline, no thyromegaly or masses palpated, and no cervical lymphadenopathy. Supple, full range of motion without nuchal rigidity, or vertebral point tenderness. No Meningismus. Chest/axilla: Normal chest wall appearance and motion. Nontender with no deformity. No lesions are appreciated. Cardiovascular: Regular rate and rhythm with a normal S1 and S2. No gallops, murmurs, or rubs. Normal PMI, no JVD. No pulse deficits. Respiratory: Lungs have equal breath sounds bilaterally, clear to auscultation and percussion. No rales, rhonchi or wheezes noted. No increased work of breathing, no retractions or nasal flaring. Abdomen/GI: Soft, non-tender, with normal bowel sounds. No distension or tympany. No guarding or rebound. No evidence of tenderness throughout. Back: No spinal tenderness. No costovertebral tenderness. Full range of motion. MS/ Extremity: Pulses equal, no cyanosis. Neurovascular intact. Full, normal range of motion. Neuro: Awake and alert, GCS 15, oriented to person, place, time, and situation. Cranial nerves II-XII grossly intact. Motor strength 5/5 in all extremities. Sensory grossly intact. Cerebellar exam normal. Normal gait. Psych: Awake, alert, with orientation to person, place and time. Behavior, mood, and affect are within normal limits. 11:53 Skin: rash a moderate rash is noted, rash can be described as macular, papular, raised, urticarial, contact dermatitis, and is diffusely located. Vital Signs: 11:34 BP 155 / 95; Pulse 70; Resp 18; Temp 97.9(TE); Pulse Ox 99% ; Weight 79.38 kg; Height 5 hj ft. 5 in. (165.10 cm); Pain 0/10; 11:34 Body Mass Index 29.12 (79.38 kg, 165.10 cm) hj MDM: 11:48 Patient medically screened. kdr 11:53 Data reviewed: vital signs, nurses notes. Counseling: I had a detailed discussion with kdr the patient and/or guardian regarding: the historical points, exam findings, and any diagnostic results supporting the discharge/admit diagnosis. Administered Medications: No medications were administered Disposition: 09/14/18 11:48 Discharged to Home. Impression: Allergic contact dermatitis. - Condition is Stable. - Discharge Instructions: Contact Dermatitis, [id number]. - Prescriptions for Benadryl 25 mg Oral Capsule - take 1 capsule by ORAL route every 6 hours As needed; 30 tablet. Pepcid 20 mg Oral Tablet - take 1 tablet by ORAL route every 12 hours for 10 days; 20 tablet. Prednisone 20 mg Oral Tablet - take 2 tablets by ORAL route once daily for 5 days Take one tablet BID x 3 days then 1 tablet QD x 3 days. Dispense QS; 10 tablet. - Medication Reconciliation Form, Thank You Letter form. - Follow up: Private Physician; When: 2 - 3 days; Reason: If symptoms return, Further diagnostic work-up, Recheck today's complaints, Continuance of care, Re-evaluation by your physician. - Problem is an ongoing problem. - Symptoms are unchanged. Signatures: Nick Aaron MD MD [facility] Alena Lewis, LEANA RN iw Isidro Montoya RN RN Corrections: (The following items were deleted from the chart) 11:58 11:48 09/14/2018 11:48 Discharged to Home. Impression: Allergic contact dermatitis. iw Condition is Stable. Forms are Medication Reconciliation Form, Thank You Letter, Antibiotic Education, Prescription Opioid Use. Follow up: Private Physician; When: 2 - 3 days; Reason: If symptoms return, Further diagnostic work-up, Recheck today's complaints, Continuance of care, Re-evaluation by your physician. Problem is an ongoing problem. Symptoms are unchanged. kdr
[2018-09-14 12:03] VITALS: BP 155/95; TEMP 97.9; O2SAT 99
== END 2018-09-14 11:58 | disposition home or self-care (01) ==
LOC: ER 11:26
DX: L23.9 Allergic contact dermatitis, unspecified cause (principal); F41.9 Anxiety disorder, unspecified; F31.9 Bipolar disorder, unspecified; I10 Essential (primary) hypertension; Z86.73 Personal history of transient ischemic attack (TIA), and cerebral infarction without residual deficits; Z88.8 Allergy status to other drugs, medicaments and biological substances
CPT/HCPCS: 99282

== ENCOUNTER 2022-03-31 07:11 | Emergency (ER) | payer OTHER ==
--- OUTSIDE RECORDS SUMMARY | 2022-03-31 07:24 | XMS REPORT | Continuity of Care Document ---
:1965 Author Organization [facility] t Address [address] [place] [address] Care Team Providers Name Role Phone Sarbjit_Db Ramirez Primary Care Physician Unavailable ANYA GRIMES Attending Clinician Unavailable Mary Jo Nieves Attending Clinician Unavailable Floresita Portillo Attending Clinician Unavailable Lindsay Brandon Attending Clinician Unavailable JULIUS JACOBSEN Attending Clinician Unavailable FRANK ESTRADA Attending Clinician Unavailable Anya Grimes MD Attending Clinician Frank Patterson Attending Clinician Doctor Unassigned, Natalia Attending Clinician Unavailable Kiran Gonzalez MD Attending Clinician CARLITOS BARRAZA Attending Clinician Unavailable Carlitos Cerda Attending Clinician Lab, Ang - Db Attending Clinician Unavailable Reggie Haskins MD Attending Clinician PEDRO LUIS QUEEN Attending Clinician Unavailable PEDRO LUIS QUEEN Attending Clinician Unavailable Pedro Luis Queen MD Attending Clinician Pipo Rios MD Attending Clinician KIRAN GONZALEZ Attending Clinician Unavailable MARCUS LUCIO Attending Clinician Unavailable PIPO RIOS Attending Clinician Unavailable ZEINA WRIGHT Attending Clinician Unavailable Luz Marina HERNANDES, Julius Allen Attending Clinician [phone] Goodman DUEÑAS, Torie Zelaya Attending Clinician Unavailable Nurse, [facility] Attending Clinician Unavailable ANYA GRIMES Admitting Clinician Unavailable JULIUS JACOBSEN Admitting Clinician Unavailable FRANK ESTRADA Admitting Clinician Unavailable CARLITOS BARRAZA Admitting Clinician Unavailable Luz Marina HERNANDES, Julius Allen Admitting Clinician [phone] Payers Payer Name Policy Type Policy Number Effective Date Expiration Date Sarah dozier COATES [id number] 2021 [employer] STAR 00:00:00 PLUS COATES C1 [id number] [facility] COATES C1 [id number] [facility] COATES C1 [id number] [facility] COATES C1 [id number] [facility] Problems Condition Condition Condition Status Onset Resolution Last Treating Co mments Source Name Details Category Date Date Treatment Clinician Date History of History of Disease Active Overview : Univers kidney kidney 03-08 Formattin ity of cancer cancer 00:00: g of this [place] 00 note Medical might be Branch different from the original. left Psoriasis Psoriasis Disease Active Uni vers 03-08 ity of 00:00: [place] 00 Medical Branch History of History of Disease Active Overview : Univers illicit illicit 03-08 Formattin ity o f drug use drug use 00:00: g of this [place] 00 note Medical might be Branch different from the original. several years ago, cocaine is listed in the medical records from [facility] Schizoaffe Schizoaffe Disease Active Overview : Univers ctive ctive 16 Formattin ity of disorder, disorder, 00:00: g of this [place] bipolar bipolar 00 note Medical type type might be Branch different from the original. Last Assessmen t & Plan: Condition : stableTak e medicatio ns as ordered by Provider; notify Provider if you cannot take medicatio ns as ordered or are having difficult ies or side-effe cts from medicatio ns (do not stop medicatio ns without notifying Provider) . If symptoms worsen or do not improve/s tabilize, notify health care provider right away. If thoughts of harming self or others notify health care provider immediate ly &/or seek urgent/em ergent care including calling Suicide Hotline ([phone]) or 911.Amanuel w up in two months with Psycholog ist and PCP Cancer of Cancer of Disease Active 2015-02 Met hodi left left 2-12 st kidney kidney 00:00: Hospita 00 l Kidney Kidney Disease Active 2015-02 Methodi mass mass 2-12 st 00:00: Hospita 00 l Left renal Left renal Disease Active 2015-02 M ethodi mass mass 1- st 00:00: Hospita 00 l Calculus Calculus Disease Active Metho di of kidney of kidney 11-15 st 00:00: Hospita 00 l Left Left Disease Active Methodi kidney kidney 10-14 st mass mass 00:00: Hospita 00 l Hepatitis Hepatitis Disease Active Met hodi C virus C virus 10-14 st infection infection 00:00: Hosp noemy 00 l Seizure Seizure Disease Active 2014-02 Univers disorder disorder 2- ity of 00:00: [place] 00 Medical Branch Current Current Disease Active Overview: Univ ers smoker smoker 10-12 Formattin ity of 00:00: g of this [place] note Medical might be Branch different from the original. Last Assessmen t & Plan: Condition : improving Patient is cutting down.Disc ussed risk of Lung Cancer, COPD, PAD, Stroke, Heart Attack and .Dis cussed pharmaceu tical and non-pharm aceutical options to quit.Enco uraged to quit. [phone] phone number discussed .Follow up in: four months [id number] Bipolar Problem Active Common affective Spirit disorder, - [facility] remission [facility] unspecifie [facility] [id number] History of Problem Active Co mmon renal cell Spirit carcinoma - [facility] [id number] Chronic Problem Active Commo n hepatitis Spirit C without - [facility] hepatic [facility] Primary Primary Problem Active Common insomnia insomnia [facility] [id number] Seizures Problem Active Commo n Spirit [facility] [id number] History of Problem Active Co mmon stroke Spirit [facility] [id number] Hyperchole Problem Active Com mon sterolemia Spirit - [facility] [id number] Rash and Problem Active Comm on nonspecifi Spirit c skin - [facility] eruption [facility] [id number] Dizziness Problem Active Com mon [facility] - [facility] [id number] S/P left Problem Active Comm on knee Spirit surgery - [facility] [id number] Cocaine Problem Active Common abuse [facility] - [facility] [id number] Frequent Problem Active Comm on headaches Spirit - [facility] [id number] Hypertrigl Problem Active Co mmon yceridemia [facility] Gastroesop Gastroesop Problem Active C ommon hageal hageal Spirit reflux reflux - [facility] disease disease [facility] without without kes esophagiti esophagiti Me dical s s Center [id number] Erectile Problem Active Comm on dysfunctio Spirit n, - [facility] unspecifie [facility] d erectile [facility] dysfunctio Medica l n type Center [id number] Frequent Problem Active Comm on falls [facility] - [facility] [id number] Abnormal Problem Active Comm on renal [facility] function - [facility] test [facility] [id number] History of Problem Active Co mmon arterioven Spirit ous - [facility]I malformati St on (AVM) [facility] [id number] Essential Problem Active Comm on (primary) Spirit hypertensi - [facility] on [facility] [id number] Depression Problem Active Com mon with Spirit anxiety [facility] AVM AVM Disease Active Overview: Univer s (arteriove (arteriove Formattin ity of nous nous g of this [place] malformati malformati note Me dical on) brain on) brain might be Br anch different from the original. s/p resection in 2007 HTN HTN Disease Active Univers (hypertens (hypertens it y of ion) ion) [facility] Prediabete Prediabete Disease [facility] All[facility]ies, Adverse Reactions, Alerts Allergy Allergy Status Severity Reaction(s) Onset Inactive Treating Comm ents Source Name Type Date Date Clinician NO KNOWN Drug Active Univers ALLERGIE Class ity [facility] Family History Family Member Diagnosis Comments Start Date Stop Date Source Natural father Prostate cancer [facility] Natural brother No Known Problems [facility] Natural mother No Known Problems [facility] Natural sister No Known Problems [facility] Social History Social Habit Start Date Stop Date Quantity Comments Source History [facility] o f Alcohol Comment [place] Med ical Branch History of tobacco Cigarette Smoker University of use [facility] Exposure to 2022-03-16 2022-03-26 Not sure University of SARS-CoV-2 (event) 00:00:00 09:16:00 [facility] Tobacco use and 2022-03-13 2022-03-13 Smokeless Universit y of exposure 00:00:00 00:00:00 tobacco non-user [facility] dical Branch Tobacco Comment 2022-03-13 2022-03-13 1 PACK EVERY 4 Unive rsity of 00:00:00 00:00:00 DAYS [place] Medical [place] History [facility] 2020-03-08 2020-03-08 1 University o f Alcohol Frequency 00:00:00 00:00:00 [facility] edical Branch History SDKS 2020-03-08 2020-03-08 99 University o f Alcohol Std Drinks 00:00:00 00:00:00 [facility] History [facility] 2020-03-08 2020-03-08 1 University o f Alcohol Binge 00:00:00 00:00:00 [facility] al Branch Alcohol intake 2015-12-31 2015-12-31 Current Confucianist 00:00:00 00:00:00 non-drinker of Hospital alcohol (finding) Cigarettes smoked 2015-12-17 2015-12-17 [facility] current (pack per 00:00:00 00:00:00 Hospita l day) - Reported Cigarette 2015-12-17 2015-12-17 [facility]ist pack-years 00:00:00 00:00:00 Hospital Sex Ass[birth year] At [birth year] [facility] 00:00:00 00:00:00 Hospital Smoking Status Start Date Stop Date Source Smokes tobacco daily 2022-03-13 00:00:[address] [facility] Light tobacco smoker 2015-10-15 00:00:00 [facility] Medications Ordered Filled Start Stop Current Ordering Indication Dosage Frequency Signature Comments Components Source Medication Medication Date Date Medication? Clinician (SIG) Name Name diclofenac 2022- Yes [id number] 75mg Take 1 Univers 75 mg EC 03-27 [id number] tablet by ity of tablet 00:00: 05:59 mouth in [place] 00 :00 the Medical morning Branch and 1 tablet in the evening. Take with meals. Do all this for 30 days. diclofenac 2022- Yes [id number] 75mg Take 1 Univers 75 mg EC 03-27 [id number] tablet by ity of tablet 00:00: 05:59 mouth in [place] 00 :00 the Medical morning Branch and 1 tablet in the evening. Take with meals. Do all this for 30 days. diclofenac 2022- Yes [id number] 75mg Take 1 Univers 75 mg EC 03-27 [id number] tablet by ity of tablet 00:00: 05:59 mouth in [place] 00 :00 the Medical morning Branch and 1 tablet in the evening. Take with meals. Do all this for 30 days. diclofenac 2022- Yes [id number] 75mg Take 1 Univers 75 mg EC 03-27 [id number] tablet by ity of tablet 00:00: 05:59 mouth in [place] 00 :00 the Medical morning Branch and 1 tablet in the evening. Take with meals. Do all this for 30 days. hydroCHLORO 2023-0 Yes [id number] TAKE 1 Univers thiazide 25 2-06 TABLET BY ity of mg tablet 00:00: MOUTH [place] 00 EVERY DAY Medical Branch hydroCHLORO 2023-0 Yes [id number] TAKE 1 Univers thiazide 25 2-06 TABLET BY ity of mg tablet 00:00: MOUTH [place] 00 EVERY DAY Medical Branch hydroCHLORO 2023-0 Yes [id number] TAKE 1 Univers thiazide 25 2-06 TABLET BY ity of mg tablet 00:00: MOUTH [place] 00 EVERY DAY Medical Branch hydroCHLORO 2023-0 Yes [id number] TAKE 1 Univers thiazide 25 2-06 TABLET BY ity of mg tablet 00:00: MOUTH [place] 00 EVERY DAY Medical Branch hydroCHLORO 2023-0 Yes [id number] TAKE 1 Univers thiazide 25 2-06 TABLET BY ity of mg tablet 00:00: MOUTH [place] 00 EVERY DAY Medical Branch hydroCHLORO 2023-0 Yes [id number] TAKE 1 Univers thiazide 25 2-06 TABLET BY ity of mg tablet 00:00: MOUTH [place] 00 EVERY DAY Medical Branch hydroCHLORO 2023-0 Yes [id number] TAKE 1 Univers thiazide 25 2-06 TABLET BY ity of mg tablet 00:00: MOUTH [place] 00 EVERY DAY Medical Branch lisinopriL 0 Yes [id number] TAKE 1 U nivers 40 mg 2-03 TABLET BY ity of tablet 00:00: MOUTH [place] EVERY DAY Medical Branch lisinopriL 0 Yes [id number] TAKE 1 U nivers 40 mg 2-03 TABLET BY ity of tablet 00:00: MOUTH [place] DAY Medical Branch lisinopriL 0 Yes [id number] TAKE 1 U nivers 40 mg 2-03 TABLET BY ity of tablet 00:00: MOUTH [place] EVERY DAY Medical Branch lisinopriL 0 Yes [id number] TAKE 1 U nivers 40 mg 2-03 TABLET BY ity of tablet 00:00: MOUTH [place] DAY Medical Branch lisinopriL 0 Yes [id number] TAKE 1 U nivers 40 mg 2-03 TABLET BY ity of tablet 00:00: MOUTH [place] DAY Medical Branch lisinopriL 0 Yes [id number] TAKE 1 U nivers 40 mg 2-03 TABLET BY ity of tablet 00:00: MOUTH [place] DAY Medical Branch lisinopriL 0 Yes [id number] TAKE 1 U nivers 40 mg 2-03 TABLET BY ity of tablet 00:00: [facility] DAY Medical Branch lisinopriL 0 Yes [id number] TAKE 1 U nivers 40 mg 2-03 TABLET BY ity of tablet 00:00: MOUTH [place] DAY Medical Branch ketorolac 0 2022- No 30mg 30 mg, Unive rs (TORADOL) 03-13 Intramuscu ity of injection 23:45: 23:41 lar, ONCE, [place] 30 mg 00 :00 1 dose, On Medical [place] Branch 03/13/22 at 1745, Routine HYDROcodone 0 2022- No 1{tbl} 1 tablet, Univers -acetaminop 03-13 Oral, ity of hen (NORCO 23:45: 23:40 ONCE, 1 [place] 5) 5-325 mg 00 :00 dose, On Medi arian tablet Nas[place] Branch tablet 03/13/22 at 1745, LUCIE naproxen 0 2022- Yes [id number] 500mg Take 1 U nivers 500 mg 1-26 02-06 tablet by ity of tablet 00:00: 05:59 mouth [place] 00 :00 every 12 Medical (twelve) Branch hours as needed for Pain (scale 4-6) for up to 10 days. naproxen 2022- Yes [id number] 500mg Take 1 U nivers 500 mg 1- 02-06 tablet by ity of tablet 00:00: 05:59 mouth [place] 00 :00 every 12 Medical (twelve) Branch hours as needed for Pain (scale 4-6) for up to 10 days. naproxen 2022- Yes [id number] 500mg Take 1 U nivers 500 mg 1- 02-06 tablet by ity of tablet 00:00: 05:59 mouth [place] 00 :00 every 12 Medical (twelve) Branch hours as needed for Pain (scale 4-6) for up to 10 days. naproxen 2022- Yes [id number] 500mg Take 1 U nivers 500 mg - 02-06 tablet by ity of tablet 00:00: 05:59 mouth [place] 00 :00 every 12 Medical (twelve) Branch hours as needed for Pain (scale 4-6) for up to 10 days. naproxen 2022- Yes [id number] 500mg Take 1 U nivers 500 mg 03-13 02-06 tablet by ity of tablet 00:00: 05:59 mouth [place] 00 :00 every 12 Medical (twelve) Branch hours as needed for Pain (scale 4-6) for up to 10 days. naproxen 2022- Yes [id number] 500mg Take 1 U nivers 500 mg 03-13 02-06 tablet by ity of tablet 00:00: 05:59 mouth [place] 00 :00 every 12 Medical (twelve) Branch hours as needed for Pain (scale 4-6) for up to 10 days. naproxen 2022- Yes [id number] 500mg Take 1 U nivers 500 mg 1- 02-06 tablet by ity of tablet 00:00: 05:59 mouth [place] 00 :00 every 12 Medical (twelve) Branch hours as needed for Pain (scale 4-6) for up to 10 days. naproxen 2022- Yes [id number] 500mg Take 1 U nivers 500 mg 1- 02-06 tablet by ity of tablet 00:00: 05:59 mouth [place] 00 :00 every 12 Medical (twelve) Branch hours as needed for Pain (scale 4-6) for up to 10 days. lisinopriL 2023-0 Yes [id number] TAKE 1 U nivers 40 mg 1-05 TABLET BY ity of tablet 00:00: [facility] 00 EVERY DAY Medical Branch lisinopriL 2023-0 Yes [id number] TAKE 1 U nivers 40 mg 1-05 TABLET BY ity of tablet 00:00: [facility] 00 EVERY DAY Medical Branch lisinopriL 2023-0 Yes [id number] TAKE 1 U nivers 40 mg 1-05 TABLET BY ity of tablet 00:00: [facility] 00 EVERY DAY Medical Branch lisinopriL 2023-0 Yes [id number] TAKE 1 U nivers 40 mg 1-05 TABLET BY ity of tablet 00:00: [facility] 00 EVERY DAY Medical Branch lisinopriL 2023-0 Yes [id number] TAKE 1 U nivers 40 mg 1-05 TABLET BY ity of tablet 00:00: [facility] 00 EVERY DAY Medical Branch lisinopriL 2023-0 Yes [id number] TAKE 1 U nivers 40 mg 1-05 TABLET BY ity of tablet 00:00: [facility] 00 EVERY DAY Medical Branch lisinopriL 2023-0 Yes [id number] TAKE 1 U nivers 40 mg 1-05 TABLET BY ity of tablet 00:00: [facility] 00 EVERY DAY Medical Branch lisinopriL 2023-0 Yes [id number] TAKE 1 U nivers 40 mg 1-05 TABLET BY ity of tablet 00:00: [facility] 00 EVERY DAY Medical Branch lisinopriL 2023-0 Yes [id number] TAKE 1 U nivers 40 mg 1-05 TABLET BY ity of tablet 00:00: [facility] 00 EVERY DAY Medical Branch lisinopriL 2023-0 Yes [id number] TAKE 1 U nivers 40 mg 1-05 TABLET BY ity of tablet 00:00: [facility] 00 EVERY DAY Medical Branch lisinopriL 2023-0 Yes [id number] TAKE 1 U nivers 40 mg 1-05 TABLET BY ity of tablet 00:00: [facility] 00 EVERY DAY Medical Branch lisinopriL 2023-0 2023- No [id number] TAKE 1 Univers 40 mg 1-05 02-03 TABLET BY ity of tablet 00:00: 00:00 [facility] 00 :00 EVERY DAY Medical Branch amitriptyli 2021- Yes [id number] 50mg Take 2 Univers ne 25 mg 1-11 tablets by ity o f tablet 00:00: mouth at [place] 00 bedtime. Medical Branch carBAMazepi 2021-02 Yes [id number] 200mg Take 1 Univers ne 200 mg 1-11 tablet by ity o f tablet 00:00: mouth in [place] 00 the Medical morning Branch and 1 tablet in the evening. amitriptyli 2021-02 Yes [id number] 50mg Take 2 Univers ne 25 mg 1-11 tablets by ity o f tablet 00:00: mouth at [place] 00 bedtime. Medical Branch carBAMazepi 2021-02 Yes [id number] 200mg Take 1 Univers ne 200 mg 1-11 tablet by ity o f tablet 00:00: mouth in [place] 00 the Medical morning Branch and 1 tablet in the evening. amitriptyli 2021-02 Yes [id number] 50mg Take 2 Univers ne 25 mg 1-11 tablets by ity o f tablet 00:00: mouth at [place] 00 bedtime. Medical Branch carBAMazepi 2021-02 Yes [id number] 200mg Take 1 Univers ne 200 mg 1-11 tablet by ity o f tablet 00:00: mouth in [place] 00 the Medical morning Branch and 1 tablet in the evening. amitriptyli 2021-02 Yes [id number] 50mg Take 2 Univers ne 25 mg 1-11 tablets by ity o f tablet 00:00: mouth at [place] 00 bedtime. Medical Branch carBAMazepi 2021-02 Yes [id number] 200mg Take 1 Univers ne 200 mg 1-11 tablet by ity o f tablet 00:00: mouth in [place] 00 the Medical morning Branch and 1 tablet in the evening. amitriptyli 2021-02 Yes [id number] 50mg Take 2 Univers ne 25 mg 1-11 tablets by ity o f tablet 00:00: mouth at [place] 00 bedtime. Medical Branch carBAMazepi 2021-02 Yes [id number] 200mg Take 1 Univers ne 200 mg 1-11 tablet by ity o f tablet 00:00: mouth in [place] 00 the Medical morning Branch and 1 tablet in the evening. amitriptyli 2021-02 Yes [id number] 50mg Take 2 Univers ne 25 mg 1-11 tablets by ity o f tablet 00:00: mouth at [place] 00 bedtime. Medical Branch carBAMazepi 2021-02 Yes [id number] 200mg Take 1 Univers ne 200 mg 1-11 tablet by ity o f tablet 00:00: mouth in [place] 00 the Medical morning Branch and 1 tablet in the evening. amitriptyli 2021-02 Yes [id number] 50mg Take 2 Univers ne 25 mg 1-11 tablets by ity o f tablet 00:00: mouth at [place] 00 bedtime. Medical Branch carBAMazepi 2021-02 Yes [id number] 200mg Take 1 Univers ne 200 mg 1-11 tablet by ity o f tablet 00:00: mouth in [place] 00 the Medical morning Branch and 1 tablet in the evening. amitriptyli 2021-02 Yes [id number] 50mg Take 2 Univers ne 25 mg 1-11 tablets by ity o f tablet 00:00: mouth at [place] 00 bedtime. Medical Branch carBAMazepi 2021-02 Yes [id number] 200mg Take 1 Univers ne 200 mg 1-11 tablet by ity o f tablet 00:00: mouth in [place] 00 the Medical morning Branch and 1 tablet in the evening. amitriptyli 2021-02 Yes [id number] 50mg Take 2 Univers ne 25 mg 1-11 tablets by ity o f tablet 00:00: mouth at [place] 00 bedtime. Medical Branch carBAMazepi 2021-02 Yes [id number] 200mg Take 1 Univers ne 200 mg 1-11 tablet by ity o f tablet 00:00: mouth in [place] 00 the Medical morning Branch and 1 tablet in the evening. amitriptyli 2021-02 Yes [id number] 50mg Take 2 Univers ne 25 mg 1-11 tablets by ity o f tablet 00:00: mouth at [place] 00 bedtime. Medical Branch carBAMazepi 2021-02 Yes [id number] 200mg Take 1 Univers ne 200 mg 1-11 tablet by ity o f tablet 00:00: mouth in [place] 00 the Medical morning Branch and 1 tablet in the evening. amitriptyli 2021-02 Yes [id number] 50mg Take 2 Univers ne 25 mg 1-11 tablets by ity o f tablet 00:00: mouth at [place] 00 bedtime. Medical Branch carBAMazepi 2021-02 Yes [id number] 200mg Take 1 Univers ne 200 mg 1-11 tablet by ity o f tablet 00:00: mouth in [place] 00 the Medical morning Branch and 1 tablet in the evening. amitriptyli 2021-02 Yes [id number] 50mg Take 2 Univers ne 25 mg 1-11 tablets by ity o f tablet 00:00: mouth at [place] 00 bedtime. Medical Branch carBAMazepi 2021-02 Yes [id number] 200mg Take 1 Univers ne 200 mg 1-11 tablet by ity o f tablet 00:00: mouth in [place] 00 the Medical morning Branch and 1 tablet in the evening. amitriptyli 2021-02 Yes [id number] 50mg Take 2 Univers ne 25 mg 1-11 tablets by ity o f tablet 00:00: mouth at [place] 00 bedtime. Medical Branch carBAMazepi 2021-02 Yes [id number] 200mg Take 1 Univers ne 200 mg 1-11 tablet by ity o f tablet 00:00: mouth in [place] 00 the Medical morning Branch and 1 tablet in the evening. amitriptyli 2021-02 Yes [id number] 50mg Take 2 Univers ne 25 mg 1-11 tablets by ity o f tablet 00:00: mouth at [place] 00 bedtime. Medical Branch carBAMazepi 2021-02 Yes [id number] 200mg Take 1 Univers ne 200 mg 1-11 tablet by ity o f tablet 00:00: mouth in [place] 00 the Medical morning Branch and 1 tablet in the evening. amitriptyli 2021-02 Yes [id number] 50mg Take 2 Univers ne 25 mg 1-11 tablets by ity o f tablet 00:00: mouth at [place] 00 bedtime. Medical Branch carBAMazepi 2021-02 Yes [id number] 200mg Take 1 Univers ne 200 mg 1-11 tablet by ity o f tablet 00:00: mouth in [place] 00 the Medical morning Branch and 1 tablet in the evening. amitriptyli 2021-02 Yes [id number] 50mg Take 2 Univers ne 25 mg 1-11 tablets by ity o f tablet 00:00: mouth at [place] 00 bedtime. Medical Branch carBAMazepi 2021-02 Yes [id number] 200mg Take 1 Univers ne 200 mg 1-11 tablet by ity o f tablet 00:00: mouth in [place] 00 the Medical morning Branch and 1 tablet in the evening. amitriptyli 2021-02 Yes [id number] 50mg Take 2 Univers ne 25 mg 1-11 tablets by ity o f tablet 00:00: mouth at [place] 00 bedtime. Medical Branch carBAMazepi 2021-02 Yes [id number] 200mg Take 1 Univers ne 200 mg 1-11 tablet by ity o f tablet 00:00: mouth in [place] 00 the Medical morning Branch and 1 tablet in the evening. amitriptyli 2021-02 Yes [id number] 50mg Take 2 Univers ne 25 mg 1-11 tablets by ity o f tablet 00:00: mouth at [place] 00 bedtime. Medical Branch carBAMazepi 2021-02 Yes [id number] 200mg Take 1 Univers ne 200 mg 1-11 tablet by ity o f tablet 00:00: mouth in [place] 00 the Medical morning Branch and 1 tablet in the evening. amitriptyli 2021-02 Yes [id number] 50mg Take 2 Univers ne 25 mg 1-11 tablets by ity o f tablet 00:00: mouth at [place] 00 bedtime. Medical Branch carBAMazepi 2021-02 Yes [id number] 200mg Take 1 Univers ne 200 mg 1-11 tablet by ity o f tablet 00:00: mouth in [place] 00 the Medical morning Branch and 1 tablet in the evening. amitriptyli 2021-02 Yes [id number] 50mg Take 2 Univers ne 25 mg 1-11 tablets by ity o f tablet 00:00: mouth at [place] 00 bedtime. Medical Branch carBAMazepi 2021-02 Yes [id number] 200mg Take 1 Univers ne 200 mg 1-11 tablet by ity o f tablet 00:00: mouth in [place] 00 the Medical morning Branch and 1 tablet in the evening. amitriptyli 2021-02 Yes [id number] 50mg Take 2 Univers ne 25 mg 1-11 tablets by ity o f tablet 00:00: mouth at [place] 00 bedtime. Medical Branch carBAMazepi 2021-02 Yes [id number] 200mg Take 1 Univers ne 200 mg 1-11 tablet by ity o f tablet 00:00: mouth in [place] 00 the Medical morning Branch and 1 tablet in the evening. amitriptyli 2021-02 Yes [id number] 50mg Take 2 Univers ne 25 mg 1-11 tablets by ity o f tablet 00:00: mouth at [place] [address] bedtime. Medical Branch carBAMazepi 2021-02 Yes [id number] 200mg Take 1 Univers ne 200 mg 1-11 tablet by ity o f tablet 00:00: mouth in [place] 00 the Medical morning Branch and 1 tablet in the evening. amitriptyli 2021-02 Yes [id number] 50mg Take 2 [facility] 25 mg 1-11 tablets by [facility] f tablet 00:00: mouth at [place] 00 bedtime. Medical Branch carBAMazepi 2021-02 Yes [id number] 200mg Take 1 [facility] 200 mg 1-11 tablet by [facility] f tablet 00:00: mouth in [place] 00 the Medical morning Branch and 1 tablet in the evening. amitriptyli 2021-02 Yes [id number] 50mg Take 2 [facility] 25 mg 1-11 tablets by [facility] f tablet 00:00: mouth at [place] [address] bedtime. Medical Branch carBAMazepi 2021-02 Yes [id number] 200mg Take 1 [facility] 200 mg 1-11 tablet by [facility] f tablet 00:00: mouth in [place] 00 the Medical morning Branch and 1 tablet in the evening. amitriptyli 2021-02 Yes [id number] 50mg Take 2 [facility] 25 mg 1-11 tablets by [facility] f tablet 00:00: mouth at [place] [address] bedtime. Medical Branch carBAMazepi 2021-02 Yes [id number] 200mg Take 1 [facility] 200 mg 1-11 tablet by [facility] f tablet 00:00: mouth in [place] 00 the Medical morning Branch and 1 tablet in the evening. GABAPENTIN 2021-02 Yes TAKE 2 [facility] 600 mg 0-21 TABLETS BY [facility] tablet 00:00: MOUTH 3 [place] 00 TIMES A Medical DAY Branch GABAPENTIN 2021- Yes TAKE 2 [facility] 600 mg 0-21 TABLETS BY [facility] of tablet 00:00: MOUTH 3 [place] 00 TIMES A Medical DAY Branch RISPERIDONE 2021- Yes [id number] TAKE 1 [facility] 1 mg tablet 0-21 TABLET BY [facility] of 00:00: MOUTH [place] 00 EVERYDAY Medical AT BEDTIME Branch GABAPENTIN 2021- Yes TAKE 2 [facility] 600 mg 0-21 TABLETS BY [facility] of tablet 00:00: MOUTH 3 [place] 00 TIMES A Medical DAY Branch RISPERIDONE 2- Yes [id number] TAKE 1 [facility] 1 mg tablet 0-21 TABLET BY [facility] of 00:00: MOUTH 00 EVERYDAY Medical AT BEDTIME Branch GABAPENTIN 2- Yes TAKE 2 [facility] 600 mg 0-21 TABLETS BY [facility] tablet 00:00: MOUTH 3 TIMES A Medical DAY Branch RISPERIDONE 2021- Yes [id number] TAKE 1 [facility] 1 mg tablet 0-21 TABLET BY [facility] of 00:00: MOUTH 00 EVERYDAY Medical AT BEDTIME Branch GABAPENTIN 2021- Yes TAKE 2 [facility] 600 mg 0-21 TABLETS BY [facility] tablet 00:00: MOUTH 3 [place] TIMES A Medical DAY Branch RISPERIDONE 2021- Yes [id number] TAKE 1 [facility] 1 mg tablet 0-21 TABLET BY [facility] of 00:00: MOUTH EVERYDAY Medical AT BEDTIME Branch GABAPENTIN 2021- Yes TAKE 2 [facility] 600 mg 0-21 TABLETS BY [facility] of tablet 00:00: [facility] [place] TIMES A Medical DAY Branch RISPERIDONE 2021- Yes [id number] TAKE 1 [facility] 1 mg tablet 0-21 TABLET BY ity of 00:00: MOUTH EVERYDAY Medical AT BEDTIME Branch GABAPENTIN 2021- Yes TAKE 2 [facility] 600 mg 0-21 TABLETS BY [facility] of tablet 00:00: MOUTH TIMES A Medical DAY Branch RISPERIDONE 2021- Yes [id number] TAKE 1 [facility] 1 mg tablet 0-21 TABLET BY ity of 00:00: MOUTH EVERYDAY Medical AT BEDTIME Branch GABAPENTIN 2-1 Yes TAKE 2 [facility] 600 mg 0-21 TABLETS BY [facility] of tablet 00:00: [address] TIMES A Medical DAY Branch RISPERIDONE 2-1 Yes [id number] TAKE 1 [facility] 1 mg tablet 0-21 TABLET BY [facility] of 00:00: MOUTH [place] EVERYDAY Medical AT BEDTIME Branch GABAPENTIN 2-1 Yes TAKE 2 [facility] 600 mg 0-21 TABLETS BY [facility] of tablet 00:00: MOUTH 3 [place] TIMES A Medical DAY Branch RISPERIDONE 2-1 Yes [id number] TAKE 1 [facility] 1 mg tablet 0-21 TABLET BY it[facility] of 00:00: MOUTH [place] 00 EVERYDAY Medical AT BEDTIME Branch GABAPENTIN 2-1 Yes TAKE 2 [facility] 600 mg 0-21 TABLETS BY [facility] of tablet 00:00: MOUTH 3 [place] TIMES A Medical DAY Branch RISPERIDONE 2- Yes [id number] TAKE 1 [facility] 1 mg tablet 0-21 TABLET BY it[facility] of 00:00: MOUTH 00 EVERYDAY Medical AT BEDTIME Branch GABAPENTIN 2021- Yes TAKE 2 [facility] 600 mg 0-21 TABLETS BY [facility] of tablet 00:00: MOUTH 3 [place] TIMES A Medical DAY Branch RISPERIDONE 2021- Yes [id number] TAKE 1 [facility] 1 mg tablet 0-21 TABLET BY ity of 00:00: MOUTH 00 EVERYDAY Medical AT BEDTIME Branch GABAPENTIN 2021- Yes TAKE 2 [facility] 600 mg 0-21 TABLETS BY it[facility] of tablet 00:00: MOUTH 3 [place] TIMES A Medical DAY Branch RISPERIDONE 2021- Yes [id number] TAKE 1 [facility] 1 mg tablet 0-21 TABLET BY it[facility] of 00:00: MOUTH 00 EVERYDAY Medical AT BEDTIME Branch GABAPENTIN 2021- Yes TAKE 2 [facility] 600 mg 0-21 TABLETS BY [facility] of tablet 00:00: MOUTH 3 [place] TIMES A Medical DAY Branch RISPERIDONE 2021- Yes [id number] TAKE 1 [facility] 1 mg tablet 0-21 TABLET BY ity of 00:00: MOUTH EVERYDAY Medical AT BEDTIME Branch GABAPENTIN 2021- Yes TAKE 2 [facility] 600 mg 0-21 TABLETS BY [facility] of tablet 00:00: MOUTH [place] TIMES A Medical DAY Branch RISPERIDONE 2021- Yes [id number] TAKE 1 [facility] 1 mg tablet 0-21 TABLET BY ity of 00:00: MOUTH EVERYDAY Medical AT BEDTIME Branch GABAPENTIN 2021- Yes TAKE 2 [facility] 600 mg 0-21 TABLETS BY it[facility] of tablet 00:00: MOUTH 3 [place] TIMES A Medical DAY Branch RISPERIDONE 2- Yes [id number] TAKE 1 [facility] 1 mg tablet 0-21 TABLET BY ity of 00:00: MOUTH [place] EVERYDAY Medical AT BEDTIME Branch GABAPENTIN 2-1 Yes TAKE 2 [facility] 600 mg 0-21 TABLETS BY ity of tablet 00:00: MOUTH 3 [place] TIMES A Medical DAY Branch RISPERIDONE 2- Yes [id number] TAKE 1 [facility] 1 mg tablet 0-21 TABLET BY ity of 00:00: MOUTH [place] 00 EVERYDAY Medical AT BEDTIME Branch GABAPENTIN 2-1 Yes TAKE 2 [facility] 600 mg 0-21 TABLETS BY it[facility] of tablet 00:00: MOUTH 3 [place] TIMES A Medical DAY Branch RISPERIDONE 2-1 Yes [id number] TAKE 1 [facility] 1 mg tablet 0-21 TABLET BY ity of 00:00: MOUTH [place] 00 EVERYDAY Medical AT BEDTIME Branch GABAPENTIN 2-1 Yes TAKE 2 [facility] 600 mg 0-21 TABLETS BY ity of tablet 00:00: MOUTH 3 TIMES A Medical DAY Branch RISPERIDONE 2021- Yes [id number] TAKE 1 [facility] 1 mg tablet 0-21 TABLET BY ity of 00:00: MOUTH 00 EVERYDAY Medical AT BEDTIME Branch GABAPENTIN 2-1 Yes TAKE 2 [facility] 600 mg 0-21 TABLETS BY ity of tablet 00:00: MOUTH 3 [place] TIMES A Medical DAY Branch RISPERIDONE 2021- Yes [id number] TAKE 1 [facility] 1 mg tablet 0-21 TABLET BY ity of 00:00: MOUTH 00 EVERYDAY Medical AT BEDTIME Branch GABAPENTIN 2- Yes TAKE 2 [facility] 600 mg 0-21 TABLETS BY ity of tablet 00:00: MOUTH 3 TIMES A Medical DAY Branch RISPERIDONE 2021- Yes [id number] TAKE 1 [facility] 1 mg tablet 0-21 TABLET BY ity of 00:00: MOUTH EVERYDAY Medical AT BEDTIME Branch GABAPENTIN 2021- Yes TAKE 2 [facility] 600 mg 0-21 TABLETS BY ity of tablet 00:00: MOUTH 3 TIMES A Medical DAY Branch RISPERIDONE 2021- Yes [id number] TAKE 1 [facility] 1 mg tablet 0-21 TABLET BY ity of 00:00: MOUTH EVERYDAY Medical AT BEDTIME Branch GABAPENTIN 2-1 Yes TAKE 2 [facility] 600 mg 0-21 TABLETS BY ity of tablet 00:00: MOUTH 3 [place] TIMES A Medical DAY Branch RISPERIDONE 2-1 Yes [id number] TAKE 1 [facility] 1 mg tablet 0-21 TABLET BY ity of 00:00: MOUTH 00 EVERYDAY Medical AT BEDTIME Branch GABAPENTIN 2-1 Yes TAKE 2 [facility] 600 mg 0-21 TABLETS BY it[facility] of tablet 00:00: MOUTH 3 [place] TIMES A Medical DAY Branch RISPERIDONE 2-1 Yes [id number] TAKE 1 [facility] 1 mg tablet 0-21 TABLET BY ity of 00:00: MOUTH 00 EVERYDAY Medical AT BEDTIME Branch GABAPENTIN 2-1 Yes TAKE 2 [facility] 600 mg 0-21 TABLETS BY it[facility] of tablet 00:00: MOUTH 3 [place] TIMES A Medical DAY Branch RISPERIDONE 2-1 Yes [id number] TAKE 1 [facility] 1 mg tablet 0-21 TABLET BY ity of 00:00: MOUTH [place] 00 EVERYDAY Medical AT BEDTIME Branch GABAPENTIN 2022-1 Yes TAKE 2 [facility] 600 mg 0-21 TABLETS BY ity of tablet 00:00: MOUTH 3 00 TIMES A Medical DAY Branch RISPERIDONE 2022-1 Yes [id number] TAKE 1 [facility] 1 mg tablet 0-21 TABLET BY ity of 00:00: MOUTH 00 EVERYDAY Medical AT BEDTIME Branch GABAPENTIN 2022-1 Yes TAKE 2 [facility] 600 mg 0-21 TABLETS BY it[facility] of tablet 00:00: MOUTH 3 00 TIMES A Medical DAY Branch RISPERIDONE 2-1 Yes [id number] TAKE 1 [facility] 1 mg tablet 0-21 TABLET BY ity of 00:00: MOUTH 00 EVERYDAY Medical AT BEDTIME Branch GABAPENTIN 2-1 Yes TAKE 2 [facility] 600 mg 0-21 TABLETS BY ity of tablet 00:00: MOUTH 3 00 TIMES A Medical DAY Branch RISPERIDONE 2-1 Yes [id number] TAKE 1 [facility] 1 mg tablet 0-21 TABLET BY ity of 00:00: MOUTH 00 EVERYDAY Medical AT BEDTIME Branch GABAPENTIN 2-1 Yes TAKE 2 [facility] 600 mg 0-21 TABLETS BY ity of tablet 00:00: MOUTH 3 TIMES A Medical DAY Branch RISPERIDONE 2-1 Yes [id number] TAKE 1 [facility] 1 mg tablet 0-21 TABLET BY ity of 00:00: MOUTH 00 EVERYDAY Medical AT BEDTIME Branch LISINOPRIL 2022-0 Yes [id number] TAKE 1 [facility] nivers 40 mg 9-06 TABLET BY ity of tablet 00:00: [facility] 00 EVERY DAY Medical Branch LISINOPRIL 2022-0 Yes [id number] TAKE 1 U nivers 40 mg 9-06 TABLET BY ity of tablet 00:00: MOUTH [place] EVERY DAY Medical Branch LISINOPRIL 2022-0 Yes [id number] TAKE 1 [facility] nivers 40 mg 9-06 TABLET BY ity of tablet 00:00: MOUTH [place] EVERY DAY Medical Branch LISINOPRIL 2022-0 Yes [id number] TAKE 1 [facility] nivers 40 mg 9-06 TABLET BY ity of tablet 00:00: MOUTH [place] 00 EVERY DAY Medical Branch LISINOPRIL 2022-0 Yes [id number] TAKE 1 [facility]ivers 40 mg 9-06 TABLET BY ity of tablet 00:00: MOUTH [place] EVERY DAY Medical Branch LISINOPRIL 2022-0 Yes [id number] TAKE 1 [facility] 40 mg 9-06 TABLET BY ity of tablet 00:00: MOUTH [place] 00 EVERY DAY Medical Branch LISINOPRIL 2022-0 Yes [id number] TAKE 1 [facility] nivers 40 mg 9-06 TABLET BY ity of tablet 00:00: MOUTH [place] 00 EVERY DAY Medical Branch LISINOPRIL 2022-0 Yes [id number] TAKE 1 [facility] 40 mg 9-06 TABLET BY ity of tablet 00:00: MOUTH [place] 00 EVERY DAY Medical Branch LISINOPRIL 2022-0 Yes [id number] TAKE 1 [facility] nivers 40 mg 9-06 TABLET BY ity of tablet 00:00: MOUTH [place] 00 EVERY DAY Medical Branch LISINOPRIL 2022-0 2023- No [id number] TAKE 1 [facility] 40 mg 9-06 -05 TABLET BY ity of tablet 00:00: 00:00 MOUTH [place] 00 :00 EVERY DAY Medical Branch HYDROCHLORO 2022-0 Yes [id number] TAKE 1 [facility] THIAZIDE 25 8-29 TABLET BY ity of mg tablet 00:00: MOUTH [place] 00 EVERY DAY Medical Branch HYDROCHLORO 2022-0 Yes [id number] TAKE 1 [facility] THIAZIDE 25 8-29 TABLET BY ity of mg tablet 00:00: MOUTH [place] 00 EVERY DAY Medical Branch HYDROCHLORO 2022-0 Yes [id number] TAKE 1 [facility] THIAZIDE 25 8-29 TABLET BY ity of mg tablet 00:00: MOUTH [place] 00 EVERY DAY Medical Branch HYDROCHLORO 2022-0 Yes [id number] TAKE 1 [facility] THIAZIDE 25 8-29 TABLET BY ity of mg tablet 00:00: MOUTH [place] 00 EVERY DAY Medical Branch HYDROCHLORO 2022-0 Yes [id number] TAKE 1 [facility] THIAZIDE 25 8-29 TABLET BY ity of mg tablet 00:00: MOUTH [place] 00 EVERY DAY Medical Branch HYDROCHLORO 2022-0 Yes [id number] TAKE 1 [facility] THIAZIDE 25 8-29 TABLET BY ity of mg tablet 00:00: MOUTH [place] 00 EVERY DAY Medical Branch HYDROCHLORO 2022-0 Yes [id number] TAKE 1 [facility] THIAZIDE 25 8-29 TABLET BY ity of mg tablet 00:00: MOUTH [place] 00 EVERY DAY Medical Branch HYDROCHLORO 2022-0 Yes [id number] TAKE 1 [facility] THIAZIDE 25 8-29 TABLET BY ity of mg tablet 00:00: MOUTH [place] 00 EVERY DAY Medical Branch HYDROCHLORO 2022-0 Yes [id number] TAKE 1 [facility] THIAZIDE 25 8-29 TABLET BY ity of mg tablet 00:00: MOUTH [place] 00 EVERY DAY Medical Branch HYDROCHLORO 2022-0 Yes [id number] TAKE 1 [facility] THIAZIDE 25 8-29 TABLET BY ity of mg tablet 00:00: MOUTH [place] 00 EVERY DAY Medical Branch HYDROCHLORO 2022-0 Yes [id number] TAKE 1 [facility] THIAZIDE 25 8-29 TABLET BY ity of mg tablet 00:00: MOUTH [place] 00 EVERY DAY Medical Branch HYDROCHLORO 2022-0 Yes [id number] TAKE 1 [facility] THIAZIDE 25 8-29 TABLET BY ity of mg tablet 00:00: MOUTH [place] 00 EVERY DAY Medical Branch HYDROCHLORO 2022-0 Yes [id number] TAKE 1 [facility] THIAZIDE 25 8-29 TABLET BY ity of mg tablet 00:00: MOUTH [place] 00 EVERY DAY Medical Branch HYDROCHLORO 2022-0 Yes [id number] TAKE 1 [facility] THIAZIDE 25 8-29 TABLET BY ity of mg tablet 00:00: MOUTH [place] 00 EVERY DAY Medical Branch HYDROCHLORO 2022-0 Yes [id number] TAKE 1 [facility] THIAZIDE 25 8-29 TABLET BY ity of mg tablet 00:00: MOUTH [place] 00 EVERY DAY Medical Branch HYDROCHLORO 2022-0 Yes [id number] TAKE 1 [facility] THIAZIDE 25 8-29 TABLET BY ity of mg tablet 00:00: MOUTH [place] 00 EVERY DAY Medical Branch HYDROCHLORO 2022-0 Yes [id number] TAKE 1 [facility] THIAZIDE 25 8-29 TABLET BY ity of mg tablet 00:00: MOUTH [place] 00 EVERY DAY Medical Branch HYDROCHLORO 2022-0 Yes [id number] TAKE 1 [facility] THIAZIDE 25 8-29 TABLET BY ity of mg tablet 00:00: MOUTH [place] 00 EVERY DAY Medical Branch HYDROCHLORO 2022-0 Yes [id number] TAKE 1 [facility] THIAZIDE 25 8-29 TABLET BY ity of mg tablet 00:00: MOUTH [place] 00 EVERY DAY Medical Branch HYDROCHLORO 2022-0 Yes [id number] TAKE 1 [facility] THIAZIDE 25 8-29 TABLET BY ity of mg tablet 00:00: MOUTH [place] 00 EVERY DAY Medical Branch HYDROCHLORO 2022-0 Yes [id number] TAKE 1 [facility] THIAZIDE 25 8-29 TABLET BY ity of mg tablet 00:00: MOUTH [place] 00 EVERY DAY Medical Branch HYDROCHLORO 2022-0 Yes [id number] TAKE 1 [facility] THIAZIDE 25 8-29 TABLET BY ity of mg tablet 00:00: MOUTH [place] 00 EVERY DAY Medical Branch HYDROCHLORO 2022-0 Yes [id number] TAKE 1 [facility] THIAZIDE 25 8-29 TABLET BY ity of mg tablet 00:00: MOUTH 00 EVERY DAY Medical Branch HYDROCHLORO 2022-0 3- No [id number] TAKE 1 [facility] THIAZIDE 25 8-29 02-06 TABLET BY it y of mg tablet 00:00: 00:00 MOUTH [place] 00 :00 EVERY DAY Medical Branch AMLODIPINE 2022-0 Yes [id number] TAKE 1 U nivers 10 mg 8-10 TABLET BY ity of tablet 00:00: MOUTH 00 EVERY DAY Medical Branch AMLODIPINE 2022-0 Yes [id number] TAKE 1 [facility] nivers 10 mg 8-10 TABLET BY ity of tablet 00:00: MOUTH 00 EVERY DAY Medical Branch AMLODIPINE 2022-0 Yes [id number] TAKE 1 [facility] nivers 10 mg 8-10 TABLET BY ity of tablet 00:00: MOUTH 00 EVERY DAY Medical Branch AMLODIPINE 2022-0 Yes [id number] TAKE 1 [facility] nivers 10 mg 8-10 TABLET BY ity of tablet 00:00: MOUTH 00 EVERY DAY Medical Branch AMLODIPINE 2022-0 Yes [id number] TAKE 1 [facility] nivers 10 mg 8-10 TABLET BY ity of tablet 00:00: MOUTH 00 EVERY DAY Medical Branch AMLODIPINE 2022-0 Yes [id number] TAKE 1 U nivers 10 mg 8-10 TABLET BY ity of tablet 00:00: MOUTH 00 EVERY DAY Medical Branch AMLODIPINE 2022-0 Yes [id number] TAKE 1 U nivers 10 mg 8-10 TABLET BY ity of tablet 00:00: MOUTH 00 EVERY DAY Medical Branch AMLODIPINE 2022-0 Yes [id number] TAKE 1 U nivers 10 mg 8-10 TABLET BY ity of tablet 00:00: MOUTH 00 EVERY DAY Medical Branch AMLODIPINE 2022-0 Yes [id number] TAKE 1 [facility] nivers 10 mg 8-10 TABLET BY ity of tablet 00:00: MOUTH 00 EVERY DAY Medical Branch AMLODIPINE 2022-0 Yes [id number] TAKE 1 U nivers 10 mg 8-10 TABLET BY ity of tablet 00:00: MOUTH 00 EVERY DAY Medical Branch AMLODIPINE 2022-0 Yes [id number] TAKE 1 [facility] nivers 10 mg 8-10 TABLET BY ity of tablet 00:00: MOUTH 00 EVERY DAY Medical Branch AMLODIPINE 2022-0 Yes [id number] TAKE 1 [facility] nivers 10 mg 8-10 TABLET BY ity of tablet 00:00: MOUTH 00 EVERY DAY Medical Branch AMLODIPINE 2022-0 Yes [id number] TAKE 1 [facility]ivers 10 mg 8-10 TABLET BY ity of tablet 00:00: MOUTH 00 EVERY DAY Medical Branch AMLODIPINE 2022-0 Yes [id number] TAKE 1 [facility]ivers 10 mg 8-10 TABLET BY ity of tablet 00:00: MOUTH EVERY DAY Medical Branch AMLODIPINE 2022-0 Yes [id number] TAKE 1 [facility]ivers 10 mg 8-10 TABLET BY ity of tablet 00:00: MOUTH 00 EVERY DAY Medical Branch AMLODIPINE 2022-0 Yes [id number] TAKE 1 U nivers 10 mg 8-10 TABLET BY ity of tablet 00:00: MOUTH EVERY DAY Medical Branch AMLODIPINE 2022-0 Yes [id number] TAKE 1 U [facility]ivers 10 mg 8-10 TABLET BY ity of tablet 00:00: MOUTH EVERY DAY Medical Branch AMLODIPINE 2022-0 Yes [id number] TAKE 1 U nivers 10 mg 8-10 TABLET BY ity of tablet 00:00: MOUTH EVERY DAY Medical Branch AMLODIPINE 2022-0 Yes [id number] TAKE 1 U nivers 10 mg 8-10 TABLET BY ity of tablet 00:00: MOUTH 00 EVERY DAY Medical Branch AMLODIPINE 2022-0 Yes [id number] TAKE 1 U nivers 10 mg 8-10 TABLET BY ity of tablet 00:00: MOUTH EVERY DAY Medical Branch AMLODIPINE 2022-0 Yes [id number] TAKE 1 [facility]ivers 10 mg 8-10 TABLET BY ity of tablet 00:00: MOUTH 00 EVERY DAY Medical Branch AMLODIPINE 2022-0 Yes [id number] TAKE 1 [facility]ivers 10 mg 8-10 TABLET BY ity of tablet 00:00: MOUTH 00 EVERY DAY Medical Branch AMLODIPINE 2022-0 Yes [id number] TAKE 1 [facility]ivers 10 mg 8-10 TABLET BY ity of tablet 00:00: MOUTH 00 EVERY DAY Medical Branch AMLODIPINE 2022-0 Yes [id number] TAKE 1 [facility]ivers 10 mg 8-10 TABLET BY ity of tablet 00:00: MOUTH 00 EVERY DAY Medical Branch AMLODIPINE 2022-0 Yes [id number] TAKE 1 [facility]ivers 10 mg 8-10 TABLET BY ity of tablet 00:00: MOUTH [place] 00 EVERY DAY Medical Branch AMLODIPINE 2022-0 Yes [id number] TAKE 1 U nivers 10 mg 8-10 TABLET BY ity of tablet 00:00: MOUTH [place] 00 EVERY DAY Medical Branch AMLODIPINE 2022-0 Yes [id number] TAKE 1 U nivers 10 mg 8-10 TABLET BY ity of tablet 00:00: MOUTH [place] 00 EVERY DAY Medical Branch AMLODIPINE 2022-0 Yes [id number] TAKE 1 U nivers 10 mg 8-10 TABLET BY ity of tablet 00:00: MOUTH [place] 00 EVERY DAY Medical Branch AMLODIPINE 2022-0 Yes [id number] TAKE 1 [facility] nivers 10 mg 8-10 TABLET BY ity of tablet 00:00: MOUTH [place] 00 EVERY DAY Medical Branch AMLODIPINE 2022-0 Yes [id number] TAKE 1 [facility] nivers 10 mg 8-10 TABLET BY ity of tablet 00:00: MOUTH [place] 00 EVERY DAY Medical Branch AMLODIPINE 2022-0 Yes [id number] TAKE 1 [facility]ivers 10 mg 8-10 TABLET BY ity of tablet 00:00: MOUTH [place] 00 EVERY DAY Medical Branch RISPERIDONE 2022-0 Yes [id number] TAKE 1 [facility] 1 mg tablet 8-02 TABLET BY ity of 00:00: MOUTH [place] 00 EVERYDAY Medical AT BEDTIME Branch OMEPRAZOLE 2022-0 Yes [id number] TAKE 1 [facility] 20 mg 8-02 CAPSULE BY ity of capsule 00:00: MOUTH [place] 00 EVERY DAY Medical Branch OMEPRAZOLE 2022-0 Yes [id number] TAKE 1 [facility] 20 mg 8-02 CAPSULE BY ity of capsule 00:00: MOUTH [place] 00 EVERY DAY Medical Branch OMEPRAZOLE 2022-0 Yes [id number] TAKE 1 [facility] 20 mg 8-02 CAPSULE BY ity of capsule 00:00: MOUTH [place] 00 EVERY DAY Medical Branch OMEPRAZOLE 2022-0 Yes [id number] TAKE 1 [facility] 20 mg 8-02 CAPSULE BY ity of capsule 00:00: MOUTH [place] 00 EVERY DAY Medical Branch OMEPRAZOLE 2022-0 Yes [id number] TAKE 1 [facility] 20 mg 8-02 CAPSULE BY ity of capsule 00:00: MOUTH [place] 00 EVERY DAY Medical Branch OMEPRAZOLE 2022-0 Yes [id number] TAKE 1 [facility] 20 mg 8-02 CAPSULE BY ity of capsule 00:00: MOUTH [place] 00 EVERY DAY Medical Branch OMEPRAZOLE 2022-0 Yes [id number] TAKE 1 [facility] 20 mg 8-02 CAPSULE BY ity of capsule 00:00: MOUTH [place] 00 EVERY DAY Medical Branch OMEPRAZOLE 2022-0 Yes [id number] TAKE 1 [facility] 20 mg 8-02 CAPSULE BY ity of capsule 00:00: MOUTH [place] 00 EVERY DAY Medical Branch OMEPRAZOLE 2022-0 Yes [id number] TAKE 1 [facility] 20 mg 8-02 CAPSULE BY ity of capsule 00:00: MOUTH [place] 00 EVERY DAY Medical Branch OMEPRAZOLE 2022-0 Yes [id number] TAKE 1 [facility] 20 mg 8-02 CAPSULE BY ity of capsule 00:00: MOUTH [place] 00 EVERY DAY Medical Branch OMEPRAZOLE 2022-0 Yes [id number] TAKE 1 [facility] 20 mg 8-02 CAPSULE BY ity of capsule 00:00: MOUTH [place] 00 EVERY DAY Medical Branch OMEPRAZOLE 2022-0 Yes [id number] TAKE 1 [facility] 20 mg 8-02 CAPSULE BY ity of capsule 00:00: MOUTH [place] 00 EVERY DAY Medical Branch OMEPRAZOLE 2022-0 Yes [id number] TAKE 1 [facility] 20 mg 8-02 CAPSULE BY ity of capsule 00:00: MOUTH [place] 00 EVERY DAY Medical Branch OMEPRAZOLE 2022-0 Yes [id number] TAKE 1 [facility] 20 mg 8-02 CAPSULE BY ity of capsule 00:00: MOUTH [place] 00 EVERY DAY Medical Branch OMEPRAZOLE 2022-0 Yes [id number] TAKE 1 [facility] 20 mg 8-02 CAPSULE BY ity of capsule 00:00: MOUTH [place] 00 EVERY DAY Medical Branch OMEPRAZOLE 2022-0 Yes [id number] TAKE 1 [facility] 20 mg 8-02 CAPSULE BY ity of capsule 00:00: MOUTH [place] 00 EVERY DAY Medical Branch OMEPRAZOLE 2022-0 Yes [id number] TAKE 1 [facility] 20 mg 8-02 CAPSULE BY ity of capsule 00:00: MOUTH [place] 00 EVERY DAY Medical Branch OMEPRAZOLE 2022-0 Yes [id number] TAKE 1 [facility] 20 mg 8-02 CAPSULE BY ity of capsule 00:00: MOUTH [place] 00 EVERY DAY Medical Branch OMEPRAZOLE 2022-0 Yes [id number] TAKE 1 [facility] 20 mg 8-02 CAPSULE BY ity of capsule 00:00: MOUTH [place] 00 EVERY DAY Medical Branch OMEPRAZOLE 2022-0 Yes [id number] TAKE 1 [facility] 20 mg 8-02 CAPSULE BY ity of capsule 00:00: MOUTH [place] 00 EVERY DAY Medical Branch OMEPRAZOLE 2022-0 Yes [id number] TAKE 1 [facility] 20 mg 8-02 CAPSULE BY ity of capsule 00:00: MOUTH [place] 00 EVERY DAY Medical Branch OMEPRAZOLE 2022-0 Yes [id number] TAKE 1 [facility] 20 mg 8-02 CAPSULE BY ity of capsule 00:00: MOUTH [place] 00 EVERY DAY Medical Branch OMEPRAZOLE 2022-0 Yes [id number] TAKE 1 [facility] 20 mg 8-02 CAPSULE BY ity of capsule 00:00: MOUTH [place] 00 EVERY DAY Medical Branch OMEPRAZOLE 2022-0 Yes [id number] TAKE 1 [facility] 20 mg 8-02 CAPSULE BY ity of capsule 00:00: MOUTH [place] 00 EVERY DAY Medical Branch OMEPRAZOLE 2022-0 Yes [id number] TAKE 1 [facility] 20 mg 8-02 CAPSULE BY ity of capsule 00:00: MOUTH [place] 00 EVERY DAY Medical Branch OMEPRAZOLE 2022-0 Yes [id number] TAKE 1 [facility] 20 mg 8-02 CAPSULE BY ity of capsule 00:00: MOUTH [place] 00 EVERY DAY Medical Branch OMEPRAZOLE 2022-0 Yes [id number] TAKE 1 [facility] 20 mg 8-02 CAPSULE BY ity of capsule 00:00: MOUTH [place] 00 EVERY DAY Medical Branch OMEPRAZOLE 2022-0 Yes [id number] TAKE 1 [facility] 20 mg 8-02 CAPSULE BY ity of capsule 00:00: MOUTH [place] 00 EVERY DAY Medical Branch RISPERIDONE 2022-0 Yes [id number] TAKE 1 [facility] 1 mg tablet 8-02 TABLET BY ity of 00:00: MOUTH [place] 00 EVERYDAY Medical AT BEDTIME Branch RISPERIDONE 2022-0 Yes [id number] TAKE 1 [facility] 1 mg tablet 8-02 TABLET BY ity of 00:00: MOUTH [place] 00 EVERYDAY Medical AT BEDTIME Branch OMEPRAZOLE 2022-0 Yes [id number] TAKE 1 [facility] 20 mg 8-02 CAPSULE BY ity of capsule 00:00: MOUTH [place] 00 EVERY DAY Medical Branch RISPERIDONE 2022-0 Yes [id number] TAKE 1 [facility] 1 mg tablet 8-02 TABLET BY ity of 00:00: MOUTH [place] 00 EVERYDAY Medical AT BEDTIME Branch OMEPRAZOLE 2022-0 Yes [id number] TAKE 1 [facility] 20 mg 8-02 CAPSULE BY ity of capsule 00:00: MOUTH [place] 00 EVERY DAY Medical Branch RISPERIDONE 2022-0 Yes [id number] TAKE 1 [facility] 1 mg tablet 8-02 TABLET BY ity of 00:00: MOUTH [place] 00 EVERYDAY Medical AT BEDTIME Branch OMEPRAZOLE 2022-0 Yes [id number] TAKE 1 [facility] 20 mg 8-02 CAPSULE BY ity of capsule 00:00: MOUTH [place] 00 EVERY DAY Medical Branch RISPERIDONE 2-0 Yes [id number] TAKE 1 [facility] 1 mg tablet 8-02 TABLET BY ity of 00:00: MOUTH [place] 00 EVERYDAY Medical AT BEDTIME Branch OMEPRAZOLE 2021-0 Yes [id number] TAKE 1 [facility] 20 mg 8-02 CAPSULE BY ity of capsule 00:00: MOUTH [place] 00 EVERY DAY Medical Branch RISPERIDONE 2-0 2022- No [id number] TAKE 1 [facility] 1 mg tablet 8-02 10-21 TABLET BY it y of 00:00: 13:28 MOUTH [place] 00 :16 EVERYDAY Medical AT BEDTIME Branch LISINOPRIL 2021-0 Yes [id number] TAKE 1 [facility] n[facility] 40 mg 6-08 TABLET BY ity of tablet 00:00: MOUTH [place] 00 EVERY DAY Medical Branch LISINOPRIL 2021-0 Yes [id number] TAKE 1 [facility] n[facility] 40 mg 6-08 TABLET BY ity of tablet 00:00: MOUTH [place] 00 EVERY DAY Medical Branch LISINOPRIL 2021-0 Yes [id number] TAKE 1 [facility] 40 mg 6-08 TABLET BY ity of tablet 00:00: MOUTH [place] 00 EVERY DAY Medical Branch LISINOPRIL 2-0 Yes [id number] TAKE 1 [facility] 40 mg 6-08 TABLET BY ity of tablet 00:00: MOUTH [place] 00 EVERY DAY Medical Branch LISINOPRIL 2021-0 Yes [id number] TAKE 1 [facility] nivers 40 mg 6-08 TABLET BY ity of tablet 00:00: MOUTH [place] 00 EVERY DAY Medical Branch LISINOPRIL 2-0 Yes [id number] TAKE 1 [facility] nivers 40 mg 6-08 TABLET BY ity of tablet 00:00: MOUTH [place] 00 EVERY DAY Medical Branch LISINOPRIL 2022-0 2022- No [id number] TAKE 1 [facility] 40 mg 6-08 09-06 TABLET BY ity of tablet 00:00: 00:00 MOUTH [place] 00 :00 EVERY DAY Medical Branch GABAPENTIN 2-0 Yes TAKE 2 [facility] 600 mg 4-22 TABLETS BY ity of tablet 00:00: MOUTH 3 [place] 00 TIMES A Medical DAY Branch RISPERIDONE 2-0 Yes [id number] TAKE 1 [facility] 1 mg tablet 4-22 TABLET BY ity of 00:00: MOUTH [place] 00 EVERYDAY Medical AT BEDTIME Branch GABAPENTIN 2022-0 Yes TAKE 2 [facility] 600 mg 4-22 TABLETS BY ity of tablet 00:00: MOUTH 3 [place] 00 TIMES A Medical DAY Branch RISPERIDONE 2022-0 Yes [id number] TAKE 1 [facility] 1 mg tablet 4-22 TABLET BY ity of 00:00: MOUTH 00 EVERYDAY Medical AT BEDTIME Branch GABAPENTIN 2022-0 Yes TAKE 2 [facility] 600 mg 4-22 TABLETS BY it[facility] of tablet 00:00: MOUTH 3 [place] 00 TIMES A Medical DAY Branch RISPERIDONE 2022-0 Yes [id number] TAKE 1 [facility] 1 mg tablet 4-22 TABLET BY ity of 00:00: MOUTH 00 EVERYDAY Medical AT BEDTIME Branch GABAPENTIN 2022-0 Yes TAKE 2 [facility] 600 mg 4-22 TABLETS BY ity of tablet 00:00: MOUTH 3 [place] 00 TIMES A Medical DAY Branch GABAPENTIN 2022-0 Yes TAKE 2 [facility] 600 mg 4-22 TABLETS BY ity of tablet 00:00: MOUTH 3 [place] 00 TIMES A Medical DAY Branch GABAPENTIN 2022-0 Yes TAKE 2 [facility] 600 mg 4-22 TABLETS BY [facility] tablet 00:00: MOUTH 3 [place] 00 TIMES A Medical DAY Branch GABAPENTIN 2022-0 Yes TAKE 2 [facility] 600 mg 4-22 TABLETS BY [facility] tablet 00:00: MOUTH 3 [place] 00 TIMES A Medical DAY Branch GABAPENTIN 2022-0 Yes TAKE 2 [facility] 600 mg 4-22 TABLETS BY [facility] tablet 00:00: MOUTH 3 [place] 00 TIMES A Medical DAY Branch GABAPENTIN 2022-0 Yes TAKE 2 [facility] 600 mg 4-22 TABLETS BY [facility] tablet 00:00: MOUTH 3 [place] 00 TIMES A Medical DAY Branch GABAPENTIN 2022-0 2022- No TAKE 2 [facility] 600 mg 4-22 10-21 TABLETS BY [facility] tablet 00:00: 00:00 MOUTH 3 [place] 00 :00 TIMES A Medical DAY Branch RISPERIDONE 2022-0 2022- No [id number] TAKE 1 [facility] 1 mg tablet 4-22 - TABLET BY it y of 00:00: 00:00 MOUTH [place] 00 :00 EVERYDAY Medical AT BEDTIME Branch CARBAMAZEPI 2022-0 Yes [id number] TAKE 1 [facility] [place] 200 mg 4-08 TABLET BY [facility] f tablet 00:00: MOUTH [place] 00 TWICE A Medical DAY Branch AMITRIPTYLI 2022-0 Yes [id number] TAKE 1 [facility] NE 25 mg 4-08 TABLET BY [facility] tablet 00:00: MOUTH [place] 00 EVERYDAY Medical AT BEDTIME Branch CARBAMAZEPI 2022-0 Yes [id number] TAKE 1 [facility] [place] 200 mg 4-08 TABLET BY [facility] f tablet 00:00: MOUTH [place] 00 TWICE A Medical DAY Branch AMITRIPTYLI 2021-0 Yes [id number] TAKE 1 [facility] NE 25 mg 4-08 TABLET BY [facility] tablet 00:00: MOUTH [place] 00 EVERYDAY Medical AT BEDTIME Branch CARBAMAZEPI 2021-0 Yes [id number] TAKE 1 [facility] [place] 200 mg 4-08 TABLET BY [facility] f tablet 00:00: MOUTH [place] 00 TWICE A Medical DAY Branch AMITRIPTYLI 2021-0 Yes [id number] TAKE 1 [facility] NE 25 mg 4-08 TABLET BY [facility] tablet 00:00: MOUTH [place] 00 EVERYDAY Medical AT BEDTIME Branch CARBAMAZEPI 2021-0 Yes [id number] TAKE 1 [facility] 200 mg 4-08 TABLET BY [facility] o f tablet 00:00: MOUTH 00 TWICE A Medical DAY Branch AMITRIPTYLI 2021-0 Yes [id number] TAKE 1 [facility] NE 25 mg 4-08 TABLET BY [facility] tablet 00:00: MOUTH 00 EVERYDAY Medical AT BEDTIME Branch CARBAMAZEPI 2021-0 Yes [id number] TAKE 1 [facility] 200 mg 4-08 TABLET BY [facility] f tablet 00:00: MOUTH [place] 00 TWICE A Medical DAY Branch AMITRIPTYLI 2021-0 Yes [id number] TAKE 1 [facility] NE 25 mg 4-08 TABLET BY [facility] tablet 00:00: MOUTH [place] 00 EVERYDAY Medical AT BEDTIME Branch CARBAMAZEPI 2-0 Yes [id number] TAKE 1 [facility] 200 mg 4-08 TABLET BY [facility] f tablet 00:00: MOUTH [place] 00 TWICE A Medical DAY Branch AMITRIPTYLI 2-0 Yes [id number] TAKE 1 [facility] 25 mg 4-08 TABLET BY [facility] tablet 00:00: MOUTH [place] 00 EVERYDAY Medical AT BEDTIME Branch CARBAMAZEPI 2021-0 Yes [id number] TAKE 1 [facility] 200 mg 4-08 TABLET BY [facility] f tablet 00:00: MOUTH [place] 00 TWICE A Medical DAY Branch AMITRIPTYLI 2021-0 Yes [id number] TAKE 1 [facility] 25 mg 4-08 TABLET BY [facility] tablet 00:00: MOUTH EVERYDAY Medical AT BEDTIME Branch CARBAMAZEPI 2-0 Yes [id number] TAKE 1 [facility] 200 mg 4-08 TABLET BY [facility] o f tablet 00:00: MOUTH TWICE A Medical DAY Branch AMITRIPTYLI 2021-0 Yes [id number] TAKE 1 [facility] 25 mg 4-08 TABLET BY [facility] tablet 00:00: MOUTH EVERYDAY Medical AT BEDTIME Branch CARBAMAZEPI 2021-0 Yes [id number] TAKE 1 [facility] 200 mg 4-08 TABLET BY [facility] f tablet 00:00: MOUTH TWICE A Medical DAY Branch AMITRIPTYLI 2021-0 Yes [id number] TAKE 1 [facility] 25 mg 4-08 TABLET BY [facility] tablet 00:00: MOUTH EVERYDAY Medical AT BEDTIME Branch CARBAMAZEPI 2021-0 Yes [id number] TAKE 1 [facility] 200 mg 4-08 TABLET BY [facility] f tablet 00:00: MOUTH TWICE A Medical DAY Branch AMITRIPTYLI 2021-0 Yes [id number] TAKE 1 [facility] 25 mg 4-08 TABLET BY [facility] tablet 00:00: MOUTH EVERYDAY Medical AT BEDTIME Branch CARBAMAZEPI 2021-0 Yes [id number] TAKE 1 [facility] 200 mg 4-08 TABLET BY [facility] o f tablet 00:00: MOUTH TWICE A Medical DAY Branch AMITRIPTYLI 2021-0 Yes [id number] TAKE 1 [facility] 25 mg 4-08 TABLET BY [facility] tablet 00:00: MOUTH EVERYDAY Medical AT BEDTIME Branch CARBAMAZEPI 2021-0 Yes [id number] TAKE 1 [facility] 200 mg 4-08 TABLET BY [facility] o f tablet 00:00: MOUTH TWICE A Medical DAY Branch AMITRIPTYLI 2-0 Yes [id number] TAKE 1 [facility] 25 mg 4-08 TABLET BY [facility] tablet 00:00: MOUTH 00 EVERYDAY Medical AT BEDTIME Branch CARBAMAZEPI 2-0 Yes [id number] TAKE 1 [facility] 200 mg 4-08 TABLET BY [facility] o f tablet 00:00: MOUTH TWICE A Medical DAY Branch AMITRIPTYLI 2-0 Yes [id number] TAKE 1 [facility] 25 mg 4-08 TABLET BY [facility] tablet 00:00: MOUTH 00 EVERYDAY Medical AT BEDTIME Branch CARBAMAZEPI 2021-0 2021- No [id number] TAKE 1 [facility] 200 mg 05-24 TABLET BY [facility] tablet 00:00: 00:00 MOUTH [place] 00 :00 TWICE A Medical DAY Branch AMITRIPTYLI 2021-0 2021- No [id number] TAKE 1 [facility] NE 25 mg 05-24 TABLET BY [facility] o f tablet 00:00: 00:00 MOUTH [place] 00 :00 EVERYDAY Medical AT BEDTIME Branch CARBAMAZEPI 2021-0 2021- No [id number] TAKE 1 [facility] 200 mg 05-24 TABLET BY [facility] tablet 00:00: 00:00 MOUTH [place] 00 :00 TWICE A Medical DAY Branch AMITRIPTYLI 2021-0 2021- No [id number] TAKE 1 [facility] NE 25 mg 05-24 TABLET BY it[facility] o f tablet 00:00: 00:00 MOUTH [place] 00 :00 EVERYDAY Medical AT BEDTIME Branch LISINOPRIL 2021-0 Yes [id number] TAKE 1 [facility] 40 mg 3-14 TABLET BY [facility] of tablet 00:00: [facility] 00 EVERY DAY Medical Branch LISINOPRIL 2021-0 Yes [id number] TAKE 1 [facility] n[facility] 40 mg 3-14 TABLET BY [facility] of tablet 00:00: [facility] 00 EVERY DAY Medical Branch AMITRIPTYLI 2021-0 Yes [id number] TAKE 1 [facility] NE 25 mg 3-14 TABLET BY [facility] of tablet 00:00: MOUTH 00 EVERYDAY Medical AT BEDTIME Branch LISINOPRIL 2021-0 Yes [id number] TAKE 1 [facility] 40 mg 3-14 TABLET BY it[facility] of tablet 00:00: [facility] 00 EVERY DAY Medical Branch LISINOPRIL 2021-0 Yes [id number] TAKE 1 [facility] n[facility] 40 mg 3-14 TABLET BY [facility] of tablet 00:00: MOUTH [place] 00 EVERY DAY Medical Branch LISINOPRIL 2021-0 Yes [id number] TAKE 1 [facility] 40 mg 3-14 TABLET BY [facility] of tablet 00:00: [facility] 00 EVERY DAY Medical Branch LISINOPRIL 2021-0 2021- No [id number] TAKE 1 [facility] 40 mg 3-14 06-08 TABLET BY [facility] of tablet 00:00: 00:00 MOUTH [place] 00 :00 EVERY DAY Medical Branch AMITRIPTYLI 2021-0 2021- No [id number] TAKE 1 [facility] NE 25 mg 3-14 04-08 TABLET BY ity o f tablet 00:00: 00:00 MOUTH [place] 00 :00 EVERYDAY Medical AT BEDTIME Branch escitalopra Yes [id number] 20mg Take 1 [facility] m oxalate 2-25 tablet by ity o f 20 mg 00:00: mouth [place] tablet 00 daily. Medical Branch levETIRAcet Yes [id number] 500mg Take 1 [facility] am 500 mg 2-25 tablet by ity o f tablet 00:00: mouth 2 [place] 00 (two) Medical times Branch daily. escitalopra Yes [id number] 20mg Take 1 [facility] m oxalate 2-25 tablet by ity o f 20 mg 00:00: mouth [place] tablet 00 daily. Medical Branch levETIRAcet Yes [id number] 500mg Take 1 [facility] am 500 mg 2-25 tablet by ity o f tablet 00:00: mouth 2 [place] 00 (two) Medical times Branch daily. escitalopra Yes [id number] 20mg Take 1 [facility] m oxalate 2-25 tablet by ity o f 20 mg 00:00: mouth [place] tablet 00 daily. Medical Branch levETIRAcet Yes [id number] 500mg Take 1 [facility] am 500 mg 2-25 tablet by it[facility] o f tablet 00:00: mouth 2 [place] 00 (two) Medical times Branch daily. escitalopra Yes [id number] 20mg Take 1 [facility] m oxalate 2-25 tablet by ity o f 20 mg 00:00: mouth [place] tablet 00 daily. Medical Branch levETIRAcet Yes [id number] 500mg Take 1 [facility] am 500 mg 2-25 tablet by it[facility] o f tablet 00:00: mouth 2 [place] 00 (two) Medical times Branch daily. escitalopra 2021-0 Yes [id number] 20mg Take 1 [facility] m oxalate 2-25 tablet by ity o f 20 mg 00:00: mouth [place] tablet 00 daily. Medical Branch levETIRAcet Yes [id number] 500mg Take 1 [facility] am 500 mg 2-25 tablet by it[facility] o f tablet 00:00: mouth 2 [place] 00 (two) Medical times Branch daily. escitalopra Yes [id number] 20mg Take 1 [facility] m oxalate 2-25 tablet by ity o f 20 mg 00:00: mouth [place] tablet 00 daily. Medical Branch levETIRAcet Yes [id number] 500mg Take 1 [facility] am 500 mg 2-25 tablet by ity o f tablet 00:00: mouth 2 [place] 00 (two) Medical times Branch daily. escitalopra Yes [id number] 20mg Take 1 [facility] m oxalate 2-25 tablet by ity o f 20 mg 00:00: mouth [place] tablet 00 daily. Medical Branch levETIRAcet Yes [id number] 500mg Take 1 [facility] am 500 mg 2-25 tablet by it[facility] o f tablet 00:00: mouth 2 [place] 00 (two) Medical times Branch daily. escitalopra Yes [id number] 20mg Take 1 [facility] m oxalate 2-25 tablet by ity o f 20 mg 00:00: mouth [place] tablet 00 daily. Medical Branch levETIRAcet Yes [id number] 500mg Take 1 [facility] am 500 mg 2-25 tablet by ity o f tablet 00:00: mouth 2 [place] 00 (two) Medical times Branch daily. escitalopra Yes [id number] 20mg Take 1 [facility] m oxalate 2-25 tablet by ity o f 20 mg 00:00: mouth [place] tablet 00 daily. Medical Branch levETIRAcet Yes [id number] 500mg Take 1 [facility] am 500 mg 2-25 tablet by ity o f tablet 00:00: mouth 2 [place] 00 (two) Medical times Branch daily. escitalopra Yes [id number] 20mg Take 1 [facility] m oxalate 2-25 tablet by ity o f 20 mg 00:00: mouth [place] tablet 00 daily. Medical Branch levETIRAcet Yes [id number] 500mg Take 1 [facility] am 500 mg 2-25 tablet by ity o f tablet 00:00: mouth 2 [place] 00 (two) Medical times Branch daily. escitalopra Yes [id number] 20mg Take 1 [facility] m oxalate 2-25 tablet by ity o f 20 mg 00:00: mouth [place] tablet 00 daily. Medical Branch levETIRAcet Yes [id number] 500mg Take 1 [facility] am 500 mg 2-25 tablet by ity o f tablet 00:00: mouth 2 [place] 00 (two) Medical times Branch daily. escitalopra 2021-0 Yes [id number] 20mg Take 1 [facility] m oxalate 2-25 tablet by ity o f 20 mg 00:00: mouth [place] tablet 00 daily. Medical Branch levETIRAcet 0 Yes [id number] 500mg Take 1 [facility] am 500 mg 2-25 tablet by ity o f tablet 00:00: mouth 2 [place] 00 (two) Medical times Branch daily. escitalopra Yes [id number] 20mg Take 1 [facility] m oxalate 2-25 tablet by ity o f 20 mg 00:00: mouth [place] tablet 00 daily. Medical Branch levETIRAcet Yes [id number] 500mg Take 1 [facility] am 500 mg 2-25 tablet by ity o f tablet 00:00: mouth 2 [place] 00 (two) Medical times Branch daily. escitalopra 2021-0 Yes [id number] 20mg Take 1 [facility] m oxalate 2-25 tablet by ity o f 20 mg 00:00: mouth [place] tablet 00 daily. Medical Branch levETIRAcet Yes [id number] 500mg Take 1 [facility] am 500 mg 2-25 tablet by ity o f tablet 00:00: mouth 2 [place] 00 (two) Medical times Branch daily. escitalopra 2021-0 Yes [id number] 20mg Take 1 [facility] m oxalate 2-25 tablet by ity o f 20 mg 00:00: mouth [place] tablet 00 daily. Medical Branch levETIRAcet 0 Yes [id number] 500mg Take 1 [facility] am 500 mg 2-25 tablet by ity o f tablet 00:00: mouth 2 [place] 00 (two) Medical times Branch daily. escitalopra 2021-0 Yes [id number] 20mg Take 1 [facility] m oxalate 2-25 tablet by ity o f 20 mg 00:00: mouth [place] tablet 00 daily. Medical Branch levETIRAcet Yes [id number] 500mg Take 1 [facility] am 500 mg 2-25 tablet by ity o f tablet 00:00: mouth 2 [place] 00 (two) Medical times Branch daily. escitalopra 2021-0 Yes [id number] 20mg Take 1 [facility] m oxalate 2-25 tablet by ity o f 20 mg 00:00: mouth [place] tablet 00 daily. Medical Branch levETIRAcet 2021-0 Yes [id number] 500mg Take 1 [facility] am 500 mg 2-25 tablet by ity o f tablet 00:00: mouth 2 [place] 00 (two) Medical times Branch daily. escitalopra 2021-0 Yes [id number] 20mg Take 1 [facility] m oxalate 2-25 tablet by ity o f 20 mg 00:00: mouth [place] tablet 00 daily. Medical Branch levETIRAcet 0 Yes [id number] 500mg Take 1 [facility] am 500 mg 2-25 tablet by ity o f tablet 00:00: mouth 2 [place] 00 (two) Medical times Branch daily. escitalopra 0 Yes [id number] 20mg Take 1 [facility] m oxalate 2-25 tablet by ity o f 20 mg 00:00: mouth [place] tablet 00 daily. Medical Branch levETIRAcet Yes [id number] 500mg Take 1 [facility] am 500 mg 2-25 tablet by ity o f tablet 00:00: mouth 2 [place] 00 (two) Medical times Branch daily. escitalopra 2021- Yes [id number] 20mg Take 1 [facility] m oxalate 2-25 tablet by ity o f 20 mg 00:00: mouth [place] tablet 00 daily. Medical Branch levETIRAcet Yes [id number] 500mg Take 1 [facility] am 500 mg 2-25 tablet by ity o f tablet 00:00: mouth 2 [place] 00 (two) Medical times Branch daily. escitalopra 2021-0 Yes [id number] 20mg Take 1 [facility] m oxalate 2-25 tablet by ity o f 20 mg 00:00: mouth [place] tablet 00 daily. Medical Branch levETIRAcet 2021-0 Yes [id number] 500mg Take 1 [facility] am 500 mg 2-25 tablet by ity o f tablet 00:00: mouth 2 [place] 00 (two) Medical times Branch daily. escitalopra 2021-0 Yes [id number] 20mg Take 1 [facility] m oxalate 2-25 tablet by ity o f 20 mg 00:00: mouth [place] tablet 00 daily. Medical Branch levETIRAcet 2021- Yes [id number] 500mg Take 1 [facility] am 500 mg 2-25 tablet by ity o f tablet 00:00: mouth 2 [place] 00 (two) Medical times Branch daily. escitalopra 2021-0 Yes [id number] 20mg Take 1 [facility] m oxalate 2-25 tablet by ity o f 20 mg 00:00: mouth [place] tablet 00 daily. Medical Branch levETIRAcet Yes [id number] 500mg Take 1 [facility] am 500 mg 2-25 tablet by ity o f tablet 00:00: mouth 2 [place] 00 (two) Medical times Branch daily. escitalopra Yes [id number] 20mg Take 1 [facility] m oxalate 2-25 tablet by ity o f 20 mg 00:00: mouth [place] tablet 00 daily. Medical Branch levETIRAcet Yes [id number] 500mg Take 1 [facility] am 500 mg 2-25 tablet by ity o f tablet 00:00: mouth 2 [place] 00 (two) Medical times Branch daily. escitalopra Yes [id number] 20mg Take 1 [facility] m oxalate 2-25 tablet by ity o f 20 mg 00:00: mouth [place] tablet 00 daily. Medical Branch levETIRAcet Yes [id number] 500mg Take 1 [facility] am 500 mg 2-25 tablet by ity o f tablet 00:00: mouth 2 [place] 00 (two) Medical times Branch daily. escitalopra 2021-0 Yes [id number] 20mg Take 1 [facility] m oxalate 2-25 tablet by ity o f 20 mg 00:00: mouth [place] tablet 00 daily. Medical Branch levETIRAcet Yes [id number] 500mg Take 1 [facility] am 500 mg 2-25 tablet by ity o f tablet 00:00: mouth 2 [place] 00 (two) Medical times Branch daily. escitalopra 2021-0 Yes [id number] 20mg Take 1 [facility] m oxalate 2-25 tablet by ity o f 20 mg 00:00: mouth [place] tablet 00 daily. Medical Branch levETIRAcet Yes [id number] 500mg Take 1 [facility] am 500 mg 2-25 tablet by ity o f tablet 00:00: mouth 2 [place] 00 (two) Medical times Branch daily. escitalopra 2021-0 Yes [id number] 20mg Take 1 [facility] m oxalate 2-25 tablet by ity o f 20 mg 00:00: mouth [place] tablet 00 daily. Medical Branch levETIRAcet 2021-0 Yes [id number] 500mg Take 1 [facility] am 500 mg 2-25 tablet by ity o f tablet 00:00: mouth 2 [place] 00 (two) Medical times Branch daily. escitalopra 2021-0 Yes [id number] 20mg Take 1 [facility] m oxalate 2-25 tablet by ity o f 20 mg 00:00: mouth [place] tablet 00 daily. Medical Branch levETIRAcet 0 Yes [id number] 500mg Take 1 [facility] am 500 mg 2-25 tablet by ity o f tablet 00:00: mouth 2 [place] 00 (two) Medical times Branch daily. escitalopra 2021-0 Yes [id number] 20mg Take 1 [facility] m oxalate 2-25 tablet by ity o f 20 mg 00:00: mouth [place] tablet 00 daily. Medical Branch levETIRAcet 2021- Yes [id number] 500mg Take 1 [facility] am 500 mg 2-25 tablet by ity o f tablet 00:00: mouth 2 [place] 00 (two) Medical times Branch daily. escitalopra 2021-0 Yes [id number] 20mg Take 1 [facility] m oxalate 2-25 tablet by ity o f 20 mg 00:00: mouth [place] tablet 00 daily. Medical Branch levETIRAcet 0 Yes [id number] 500mg Take 1 [facility] am 500 mg 2-25 tablet by ity o f tablet 00:00: mouth 2 [place] 00 (two) Medical times Branch daily. escitalopra 2021-0 Yes [id number] 20mg Take 1 [facility] m oxalate 2-25 tablet by ity o f 20 mg 00:00: mouth [place] tablet 00 daily. Medical Branch levETIRAcet 0 Yes [id number] 500mg Take 1 [facility] am 500 mg 2-25 tablet by ity o f tablet 00:00: mouth 2 [place] 00 (two) Medical times Branch daily. escitalopra 2021-0 Yes [id number] 20mg Take 1 [facility] m oxalate 2-25 tablet by ity o f 20 mg 00:00: mouth [place] tablet 00 daily. Medical Branch levETIRAcet 2021-0 Yes [id number] 500mg Take 1 [facility] am 500 mg 2-25 tablet by ity o f tablet 00:00: mouth 2 [place] 00 (two) Medical times Branch daily. escitalopra 2021-0 Yes [id number] 20mg Take 1 [facility] m oxalate 2-25 tablet by ity o f 20 mg 00:00: mouth [place] tablet 00 daily. Medical Branch levETIRAcet 2021-0 Yes [id number] 500mg Take 1 [facility] am 500 mg 2-25 tablet by ity o f tablet 00:00: mouth 2 [place] 00 (two) Medical times Branch daily. escitalopra 2021-0 Yes [id number] 20mg Take 1 [facility] m oxalate 2-25 tablet by ity o f 20 mg 00:00: mouth [place] tablet 00 daily. Medical Branch levETIRAcet 2021-0 Yes [id number] 500mg Take 1 [facility] am 500 mg 2-25 tablet by ity o f tablet 00:00: mouth 2 [place] 00 (two) Medical times Branch daily. escitalopra 2021-0 Yes [id number] 20mg Take 1 [facility] m oxalate 2-25 tablet by ity o f 20 mg 00:00: mouth [place] tablet 00 daily. Medical Branch levETIRAcet 2021-0 Yes [id number] 500mg Take 1 [facility] am 500 mg 2-25 tablet by ity o f tablet 00:00: mouth 2 [place] 00 (two) Medical times Branch daily. escitalopra 2021-0 Yes [id number] 20mg Take 1 [facility] m oxalate 2-25 tablet by ity o f 20 mg 00:00: mouth [place] tablet 00 daily. Medical Branch levETIRAcet 2021-0 Yes [id number] 500mg Take 1 [facility] am 500 mg 2-25 tablet by ity o f tablet 00:00: mouth 2 [place] 00 (two) Medical times Branch daily. escitalopra 2021-0 Yes [id number] 20mg Take 1 [facility] m oxalate 2-25 tablet by ity o f 20 mg 00:00: mouth [place] tablet 00 daily. Medical Branch levETIRAcet 2021-0 Yes [id number] 500mg Take 1 [facility] am 500 mg 2-25 tablet by ity o f tablet 00:00: mouth 2 [place] 00 (two) Medical times Branch daily. escitalopra 2021-0 Yes [id number] 20mg Take 1 [facility] m oxalate 2-25 tablet by ity o f 20 mg 00:00: mouth [place] tablet 00 daily. Medical Branch levETIRAcet 2021-0 Yes [id number] 500mg Take 1 [facility] am 500 mg 2-25 tablet by ity o f tablet 00:00: mouth 2 [place] 00 (two) Medical times Branch daily. escitalopra 0 Yes [id number] 20mg Take 1 [facility] m oxalate 2-25 tablet by ity o f 20 mg 00:00: mouth [place] tablet 00 daily. Medical Branch levETIRAcet 2021-0 Yes [id number] 500mg Take 1 [facility] am 500 mg 2-25 tablet by ity o f tablet 00:00: mouth 2 [place] 00 (two) Medical times Branch daily. RISPERIDONE 2021-0 Yes [id number] TAKE 1 [facility] 1 mg tablet 2-14 TABLET BY ity of 00:00: MOUTH [place] 00 EVERYDAY Medical AT BEDTIME Branch RISPERIDONE 2021-0 Yes [id number] TAKE 1 [facility] 1 mg tablet 2-14 TABLET BY ity of 00:00: MOUTH [place] 00 EVERYDAY Medical AT BEDTIME Branch RISPERIDONE 2021-0 Yes [id number] TAKE 1 [facility] 1 mg tablet 2-14 TABLET BY ity of 00:00: MOUTH [place] 00 EVERYDAY Medical AT BEDTIME Branch RISPERIDONE 2021-0 Yes [id number] TAKE 1 [facility] 1 mg tablet 2-14 TABLET BY ity of 00:00: MOUTH [place] 00 EVERYDAY Medical AT BEDTIME Branch RISPERIDONE 2021-0 Yes [id number] TAKE 1 [facility] 1 mg tablet 2-14 TABLET BY ity of 00:00: MOUTH [place] 00 EVERYDAY Medical AT BEDTIME Branch RISPERIDONE 2021-0 Yes [id number] TAKE 1 [facility] 1 mg tablet 2-14 TABLET BY ity of 00:00: MOUTH [place] 00 EVERYDAY Medical AT BEDTIME Branch RISPERIDONE 2021-0 202- No [id number] TAKE 1 [facility] 1 mg tablet 2-14 -22 TABLET BY it y of 00:00: 00:00 MOUTH [place] 00 :00 EVERYDAY Medical AT BEDTIME Branch indomethaci 2-0 2021- No 50mg Take 50 mg [facility] n 50 mg -03-15 by mouth 2 ity o f capsule 10:21: 00:00 (two) [place] 15 :00 times Medical daily with Branch meals. AMITRIPTYLI 2021-0 Yes [id number] TAKE 1 [facility] NE 25 mg 1-20 TABLET BY it[facility] of tablet 00:00: MOUTH [place] 00 EVERYDAY Medical AT BEDTIME Branch AMITRIPTYLI 2021-0 Yes [id number] TAKE 1 [facility] 25 mg 1-20 TABLET BY ity of tablet 00:00: MOUTH [place] 00 EVERYDAY Medical AT BEDTIME Branch AMITRIPTYLI 2021-0 Yes [id number] TAKE 1 [facility] NE 25 mg 1-20 TABLET BY ity of tablet 00:00: MOUTH [place] 00 EVERYDAY Medical AT BEDTIME Branch AMITRIPTYLI 2021-0 Yes [id number] TAKE 1 [facility] 25 mg 1-20 TABLET BY ity of tablet 00:00: MOUTH [place] 00 EVERYDAY Medical AT BEDTIME Branch AMITRIPTYLI 2021-0 2- No [id number] TAKE 1 [facility] 25 mg 1-20 03-14 TABLET BY ity o f tablet 00:00: 00:00 MOUTH [place] 00 :00 EVERYDAY Medical AT BEDTIME Branch GABAPENTIN 2020- Yes TAKE 2 [facility] 600 mg 1-23 TABLETS BY ity of tablet 00:00: MOUTH 3 [place] 00 TIMES A Medical DAY Branch GABAPENTIN 2020- Yes TAKE 2 [facility] 600 mg 1-23 TABLETS BY ity of tablet 00:00: MOUTH 3 [place] 00 TIMES A Medical DAY Branch GABAPENTIN 2020- Yes TAKE 2 [facility] 600 mg 1-23 TABLETS BY ity of tablet 00:00: MOUTH 3 [place] 00 TIMES A Medical DAY Branch GABAPENTIN 2020- Yes TAKE 2 [facility] 600 mg 1-23 TABLETS BY ity of tablet 00:00: MOUTH 3 [place] 00 TIMES A Medical DAY Branch GABAPENTIN 2020-1 Yes TAKE 2 [facility] 600 mg 1-23 TABLETS BY ity of tablet 00:00: MOUTH 3 [place] 00 TIMES A Medical DAY Branch GABAPENTIN 2020- Yes TAKE 2 [facility] 600 mg 1-23 TABLETS BY ity of tablet 00:00: MOUTH 3 [place] 00 TIMES A Medical DAY Branch GABAPENTIN 2020-2- No TAKE 2 [facility] ers 600 mg 1-23 04-22 TABLETS BY ity of tablet 00:00: 00:00 MOUTH 3 [place] 00 :00 TIMES A Medical DAY Branch RISPERIDONE 2020-1 Yes [id number] TAKE 1 [facility] 1 mg tablet 1-08 TABLET BY ity of 00:00: MOUTH [place] 00 EVERYDAY Medical AT BEDTIME Branch RISPERIDONE 2020-1 2- No [id number] TAKE 1 [facility] 1 mg tablet 1-08 02-14 TABLET BY it y of 00:00: 00:00 MOUTH [place] 00 :00 EVERYDAY Medical AT BEDTIME Branch carBAMazepi 2020-02 Yes [id number] 200mg Take 1 [facility] ne 200 mg 0-04 tablet by ity o f tablet 00:00: mouth 2 (two) Medical times Branch daily. carBAMazepi 2020-02 Yes [id number] 200mg Take 1 [facility] ne 200 mg 0-04 tablet by ity o f tablet 00:00: mouth 2 (two) Medical times Branch daily. carBAMazepi 2020-02 Yes [id number] 200mg Take 1 [facility] ne 200 mg 0-04 tablet by ity o f tablet 00:00: mouth 2 (two) Medical times Branch daily. carBAMazepi 2020-02 Yes [id number] 200mg Take 1 [facility] ne 200 mg 0-04 tablet by ity o f tablet 00:00: mouth 2 (two) Medical times Branch daily. carBAMazepi 2020-02 Yes [id number] 200mg Take 1 [facility] ne 200 mg 0-04 tablet by ity o f tablet 00:00: mouth 2 (two) Medical times Branch daily. amLODIPine 2020-02 Yes [id number] 10mg Take 1 [facility] 10 mg 0-01 tablet by ity of tablet 00:00: mouth [place] 00 daily. Medical Branch hydroCHLORO 2020-02 Yes [id number] 25mg Take 1 [facility] thiazide 25 0-01 tablet by ity of mg tablet 00:00: mouth [place] 00 daily. Medical Branch escitalopra 2020-02 Yes [id number] 20mg Take 1 [facility] m oxalate 0-01 tablet by ity o f 20 mg 00:00: mouth [place] tablet 00 daily. Medical Branch amLODIPine 2020-02 Yes [id number] 10mg Take 1 [facility] 10 mg 0-01 tablet by ity of tablet 00:00: mouth [place] 00 daily. Medical Branch hydroCHLORO 2020-02 Yes [id number] 25mg Take 1 [facility] thiazide 25 0-01 tablet by ity of mg tablet 00:00: mouth [place] 00 daily. Medical Branch escitalopra 2020-02 Yes [id number] 20mg Take 1 [facility] m oxalate 0-01 tablet by ity o f 20 mg 00:00: mouth [place] tablet 00 daily. Medical Branch amLODIPine 2020-02 Yes [id number] 10mg Take 1 [facility] 10 mg 0-01 tablet by ity of tablet 00:00: mouth [place] 00 daily. Medical Branch hydroCHLORO 2020-02 Yes [id number] 25mg Take 1 [facility] thiazide 25 0-01 tablet by ity of mg tablet 00:00: mouth [place] 00 daily. Medical Branch escitalopra 2020-02 Yes [id number] 20mg Take 1 [facility] m oxalate 0-01 tablet by ity o f 20 mg 00:00: mouth [place] tablet 00 daily. Medical Branch amLODIPine 2020-02 Yes [id number] 10mg Take 1 [facility] 10 mg 0-01 tablet by ity of tablet 00:00: mouth [place] 00 daily. Medical Branch hydroCHLORO 2020-02 Yes [id number] 25mg Take 1 [facility] thiazide 25 0-01 tablet by ity of mg tablet 00:00: mouth [place] 00 daily. Medical Branch amLODIPine 2020-02 Yes [id number] 10mg Take 1 [facility] 10 mg 0-01 tablet by ity of tablet 00:00: mouth [place] 00 daily. Medical Branch hydroCHLORO 2020-02 Yes [id number] 25mg Take 1 [facility] thiazide 25 0-01 tablet by ity of mg tablet 00:00: mouth [place] 00 daily. Medical Branch amLODIPine 2020-02 Yes [id number] 10mg Take 1 [facility] 10 mg 0-01 tablet by ity of tablet 00:00: mouth [place] 00 daily. Medical Branch hydroCHLORO 2020-02 Yes [id number] 25mg Take 1 [facility] thiazide 25 0-01 tablet by ity of mg tablet 00:00: mouth [place] 00 daily. Medical Branch amLODIPine 2020-02 Yes [id number] 10mg Take 1 [facility] 10 mg 0-01 tablet by ity of tablet 00:00: mouth [place] 00 daily. Medical Branch hydroCHLORO 2020-02 Yes [id number] 25mg Take 1 [facility] thiazide 25 0-01 tablet by ity of mg tablet 00:00: mouth [place] 00 daily. Medical Branch amLODIPine 2020-02 Yes [id number] 10mg Take 1 [facility] 10 mg 0-01 tablet by ity of tablet 00:00: mouth [place] 00 daily. Medical Branch hydroCHLORO 2020-02 Yes [id number] 25mg Take 1 [facility] thiazide 25 0-01 tablet by ity of mg tablet 00:00: mouth [place] 00 daily. [facility] amLODIPine 2020-02 Yes [id number] 10mg Take 1 [facility] nivers 10 mg 0-01 tablet by ity of tablet 00:00: mouth [place] 00 daily. [facility] hydroCHLORO 2020-02 Yes [id number] 25mg Take 1 [facility] thiazide 25 0-01 tablet by ity of mg tablet 00:00: mouth [place] 00 daily. [facility] amLODIPine 2020-02 Yes [id number] 10mg Take 1 [facility] nivers 10 mg 0-01 tablet by ity of tablet 00:00: mouth [place] 00 daily. [facility] hydroCHLORO 2020-02 Yes [id number] 25mg Take 1 [facility] thiazide 25 0-01 tablet by ity of mg tablet 00:00: mouth [place] 00 daily. [facility] amLODIPine 2020-02 Yes [id number] 10mg Take 1 [facility] nivers 10 mg 0-01 tablet by ity of tablet 00:00: mouth [place] 00 daily. [facility] hydroCHLORO 2020-02 Yes [id number] 25mg Take 1 [facility] thiazide 25 0-01 tablet by ity of mg tablet 00:00: mouth [place] 00 daily. [facility] amLODIPine 2020-02 Yes [id number] 10mg Take 1 [facility] nivers 10 mg 0-01 tablet by ity of tablet 00:00: mouth [place] 00 daily. [facility] hydroCHLORO 2020-02 Yes [id number] 25mg Take 1 [facility] thiazide 25 0-01 tablet by ity of mg tablet 00:00: mouth [place] 00 daily. [facility] hydroCHLORO 2020-02 Yes [id number] 25mg Take 1 [facility] thiazide 25 0-01 tablet by ity of mg tablet 00:00: mouth [place] 00 daily. [facility] hydroCHLORO 2020-02- No [id number] 25mg Take 1 [facility] thiazide 25 0-01 08-29 tablet by it y of mg tablet 00:00: 15:11 mouth [place] 00 :08 daily. [facility] amLODIPine 2020-02- No [id number] 10mg Take 1 [facility] 10 mg 0-01 08-10 tablet by ity of tablet 00:00: 00:00 mouth [place] 00 :00 daily. [facility] levETIRAcet Yes [id number] 500mg Take 1 [facility] am 500 mg 9-14 tablet by ity o f tablet 00:00: mouth 2 [place] 00 (two) Medical times Branch daily. levETIRAcet Yes [id number] 500mg Take 1 [facility] am 500 mg 9-14 tablet by ity o f tablet 00:00: mouth 2 00 (two) Medical times Branch daily. levETIRAcet 2020-0 Yes [id number] 500mg Take 1 [facility] am 500 mg 9-14 tablet by ity o f tablet 00:00: mouth 2 00 (two) Medical times Branch daily. methylPREDN 0 2021- No Take by Un cuco ISolone 10-10 mouth ity of (MEDROL, 00:00: 00:[place]DE[place] 4 mg 00 :00 CTIONS. Medica l tablets follow Branch package directions lisinopriL Yes [id number] 40mg Take 1 [facility] nivers 40 mg 8-12 tablet by ity of tablet 00:00: mouth [place] 00 daily. [facility] omeprazole 0 Yes [id number] 20mg Take 1 [facility] 20 mg 8-12 capsule by ity of capsule 00:00: mouth [place] 00 daily. [facility] lisinopriL 0 Yes [id number] 40mg Take 1 [facility]ivers 40 mg 8-12 tablet by ity of tablet 00:00: mouth [place] 00 daily. [facility] omeprazole 0 Yes [id number] 20mg Take 1 [facility] 20 mg 8-12 capsule by ity of capsule 00:00: mouth [place] 00 daily. [facility] lisinopriL 0 Yes [id number] 40mg Take 1 [facility]ivers 40 mg 8-12 tablet by ity of tablet 00:00: mouth [place] 00 daily. [facility] omeprazole 2020-0 Yes [id number] 20mg Take 1 [facility] 20 mg 8-12 capsule by ity of capsule 00:00: mouth [place] 00 daily. [facility] omeprazole 2020-0 Yes [id number] 20mg Take 1 [facility] 20 mg 8-12 capsule by ity of capsule 00:00: mouth [place] 00 daily. [facility] omeprazole 0 Yes [id number] 20mg Take 1 [facility] 20 mg 8-12 capsule by ity of capsule 00:00: mouth [place] 00 daily. [facility] omeprazole 2020-0 Yes [id number] 20mg Take 1 [facility] 20 mg 8-12 capsule by ity of capsule 00:00: mouth [place] 00 daily. [facility] omeprazole 2020-0 Yes [id number] 20mg Take 1 [facility] 20 mg 8-12 capsule by ity of capsule 00:00: mouth [place] 00 daily. [facility] omeprazole 2020-0 Yes [id number] 20mg Take 1 [facility] 20 mg 8-12 capsule by ity of capsule 00:00: mouth [place] 00 daily. [facility] omeprazole 2020-0 Yes [id number] 20mg Take 1 [facility] 20 mg 8-12 capsule by ity of capsule 00:00: mouth [place] 00 daily. [facility] omeprazole 2020-0 Yes [id number] 20mg Take 1 [facility] 20 mg 8-12 capsule by ity of capsule 00:00: mouth [place] 00 daily. [facility] omeprazole 2020-0 Yes [id number] 20mg Take 1 [facility] 20 mg 8-12 capsule by ity of capsule 00:00: mouth [place] 00 daily. [facility] omeprazole 2020-0 2021- No [id number] 20mg Take 1 [facility] 20 mg 8-12 08-02 capsule by ity of capsule 00:00: 00:00 mouth [place] 00 :00 daily. [facility] lisinopriL 2020-0 2- No [id number] 40mg Take 1 [facility] 40 mg 8-12 03-14 tablet by ity of tablet 00:00: 00:00 mouth [place] 00 :00 daily. [facility] naproxen 2020-0 Yes [id number] 375mg Take 1 [facility] 375 mg 7-20 [id number] tablet by ity of tablet 00:00: mouth (two) Medical times Branch daily with meals. naproxen 2020-0 Yes [id number] 375mg Take 1 [facility] 375 mg 7-20 [id number] tablet by ity of tablet 00:00: mouth 2 [place] (two) Medical times Branch daily with meals. naproxen 2020-0 Yes [id number] 375mg Take 1 [facility] 375 mg 7-20 [id number] tablet by ity of tablet 00:00: mouth [place] (two) Medical times Branch daily with meals. naproxen 2020-0 Yes [id number] 375mg Take 1 [facility] 375 mg 7-20 [id number] tablet by ity of tablet 00:00: mouth 2 [place] (two) Medical times Branch daily with meals. naproxen 2020-0 Yes [id number] 375mg Take 1 [facility] 375 mg 7-20 [id number] tablet by ity of tablet 00:00: mouth (two) Medical times Branch daily with meals. naproxen 2020-0 Yes [id number] 375mg Take 1 [facility] 375 mg 7-20 05552 tablet by ity of tablet 00:00: mouth (two) Medical times Branch daily with meals. naproxen 2020-0 Yes [id number] 375mg Take 1 [facility] 375 mg 7-20 [id number] tablet by ity of tablet 00:00: mouth (two) Medical times Branch daily with meals. naproxen 2020-0 Yes [id number] 375mg Take 1 [facility] 375 mg 7-20 [id number] tablet by ity of tablet 00:00: mouth (two) Medical times Branch daily with meals. naproxen 2020-0 Yes [id number] 375mg Take 1 [facility] 375 mg 7-20 [id number] tablet by ity of tablet 00:00: mouth (two) Medical times Branch daily with meals. naproxen 2020-0 Yes [id number] 375mg Take 1 [facility] 375 mg 7-20 [id number] tablet by ity of tablet 00:00: mouth (two) Medical times Branch daily with meals. naproxen 2020-0 Yes [id number] 375mg Take 1 [facility] 375 mg 7-20 [id number] tablet by ity of tablet 00:00: mouth (two) Medical times Branch daily with meals. naproxen 2020-0 Yes [id number] 375mg Take 1 [facility] 375 mg 7-20 [id number] tablet by ity of tablet 00:00: mouth (two) Medical times Branch daily with meals. naproxen 2020-0 Yes [id number] 375mg Take 1 [facility] 375 mg 7-20 [id number] tablet by ity of tablet 00:00: mouth (two) Medical times Branch daily with meals. naproxen 2020-0 Yes [id number] 375mg Take 1 [facility] 375 mg 7-20 35099 tablet by ity of tablet 00:00: mouth (two) Medical times Branch daily with meals. naproxen 2020-0 Yes [id number] 375mg Take 1 [facility] 375 mg 7-20 [id number] tablet by ity of tablet 00:00: mouth (two) Medical times Branch daily with meals. naproxen 2020-0 Yes [id number] 375mg Take 1 [facility] 375 mg 7-20 [id number] tablet by ity of tablet 00:00: mouth (two) Medical times Branch daily with meals. naproxen 2020-0 Yes [id number] 375mg Take 1 [facility] 375 mg 7-20 [id number] tablet by ity of tablet 00:00: mouth (two) Medical times Branch daily with meals. naproxen 2020-0 Yes [id number] 375mg Take 1 [facility] 375 mg 7-20 [id number] tablet by ity of tablet 00:00: mouth (two) Medical times Branch daily with meals. naproxen 2020-0 Yes [id number] 375mg Take 1 [facility] 375 mg 7-20 [id number] tablet by ity of tablet 00:00: mouth (two) Medical times Branch daily with meals. naproxen 2020-0 Yes [id number] 375mg Take 1 [facility] 375 mg 7-20 [id number] tablet by ity of tablet 00:00: mouth (two) Medical times Branch daily with meals. naproxen 2020-0 Yes [id number] 375mg Take 1 [facility] 375 mg 7-20 [id number] tablet by ity of tablet 00:00: [facility] (two) Medical times Branch daily with meals. naproxen 2020-0 Yes [id number] 375mg Take 1 [facility] 375 mg 7-20 52512 tablet by ity of tablet 00:00: mouth [place] (two) Medical times Branch daily with meals. naproxen 2020-0 Yes [id number] 375mg Take 1 [facility] 375 mg 7-20 38636 tablet by ity of tablet 00:00: mouth [place] (two) Medical times Branch daily with meals. naproxen 2020-0 Yes [id number] 375mg Take 1 [facility] 375 mg 7-20 [id number] tablet by ity of tablet 00:00: mouth (two) Medical times Branch daily with meals. naproxen 2020-0 Yes [id number] 375mg Take 1 [facility] 375 mg 7-20 [id number] tablet by ity of tablet 00:00: mouth (two) Medical times Branch daily with meals. naproxen 1-0 Yes [id number] 375mg Take 1 [facility] 375 mg 7-20 80004 tablet by ity of tablet 00:00: mouth 2 00 (two) Medical times Branch daily with meals. naproxen 1-0 Yes [id number] 375mg Take 1 [facility] 375 mg 7-20 [id number] tablet by ity of tablet 00:00: mouth 2 (two) Medical times Branch daily with meals. naproxen 1-0 Yes [id number] 375mg Take 1 [facility] 375 mg 7-20 05869 tablet by ity of tablet 00:00: mouth 2 (two) Medical times Branch daily with meals. naproxen 1-0 2023- No [id number] 375mg Take 1 [facility] 375 mg 7-20 - 27378 tablet by ity of tablet 00:00: 00:00 mouth 2 00 :00 (two) Medical times Branch daily with meals. calcipotrie 2021-0 Yes [id number] Apply to [facility] ne 1-21 area(s) 2 ity of (DOVONEX) 00:00: (two) [place] 0.005 % 00 times Medical cream daily. Branch calcipotrie 1-0 Yes [id number] Apply to [facility] ne 1-21 area(s) 2 ity of (DOVONEX) 00:00: (two) [place] 0.005 % 00 times Medical cream daily. Branch calcipotrie 1-0 Yes [id number] Apply to Univers ne 1-21 area(s) 2 ity of (DOVONEX) 00:00: (two) [place] 0.005 % 00 times Medical cream daily. Branch calcipotrie 1-0 Yes [id number] Apply to [facility] ne 1-21 area(s) 2 ity of (DOVONEX) 00:00: (two) [place] 0.005 % 00 times Medical cream daily. Branch calcipotrie 2021-0 Yes [id number] Apply to Univers ne 1-21 area(s) 2 ity of (DOVONEX) 00:00: (two) [place] 0.005 % 00 times Medical cream daily. Branch calcipotrie 1-0 Yes [id number] Apply to [facility] ne 1-21 area(s) 2 ity of (DOVONEX) 00:00: (two) [place] 0.005 % 00 times Medical cream daily. Branch calcipotrie 2021-0 Yes [id number] Apply to [facility] ne 1-21 area(s) 2 ity of (DOVONEX) 00:00: (two) [place] 0.005 % 00 times Medical cream daily. Branch calcipotrie 2021-0 Yes [id number] Apply to Univers ne 1-21 area(s) 2 ity of (DOVONEX) 00:00: (two) [place] 0.005 % 00 times Medical cream daily. Branch calcipotrie 2021-0 Yes [id number] Apply to Univers ne 1-21 area(s) 2 ity of (DOVONEX) 00:00: (two) [place] 0.005 % 00 times Medical cream daily. Branch calcipotrie 1-0 Yes [id number] Apply to Univers ne 1-21 area(s) 2 ity of (DOVONEX) 00:00: (two) [place] 0.005 % 00 times Medical cream daily. Branch calcipotrie 1-0 Yes [id number] Apply to Univers ne 1-21 area(s) 2 ity of (DOVONEX) 00:00: (two) [place] 0.005 % 00 times Medical cream daily. Branch calcipotrie 1-0 Yes [id number] Apply to Univers ne 1-21 area(s) 2 ity of (DOVONEX) 00:00: (two) [place] 0.005 % 00 times Medical cream daily. Branch calcipotrie 1-0 Yes [id number] Apply to Univers ne 1-21 area(s) 2 ity of (DOVONEX) 00:00: (two) [place] 0.005 % 00 times Medical cream daily. Branch calcipotrie 2021-0 Yes [id number] Apply to Univers ne 1-21 area(s) 2 ity of (DOVONEX) 00:00: (two) [place] 0.005 % 00 times Medical cream daily. Branch calcipotrie 2021-0 Yes [id number] Apply to Univers ne 1-21 area(s) 2 ity of (DOVONEX) 00:00: (two) [place] 0.005 % 00 times Medical cream daily. Branch calcipotrie 2021-0 Yes [id number] Apply to Univers ne 1-21 area(s) 2 ity of (DOVONEX) 00:00: (two) [place] 0.005 % 00 times Medical cream daily. Branch calcipotrie 1-0 Yes [id number] Apply to Univers ne 1-21 area(s) 2 ity of (DOVONEX) 00:00: (two) [place] 0.005 % 00 times Medical cream daily. Branch calcipotrie 2021-0 Yes [id number] Apply to Univers ne 1-21 area(s) 2 ity of (DOVONEX) 00:00: (two) [place] 0.005 % 00 times Medical cream daily. Branch calcipotrie 1-0 Yes [id number] Apply to Univers ne 1-21 area(s) 2 ity of (DOVONEX) 00:00: (two) [place] 0.005 % 00 times Medical cream daily. Branch calcipotrie 1-0 Yes [id number] Apply to Univers ne 1-21 area(s) 2 ity of (DOVONEX) 00:00: (two) [place] 0.005 % 00 times Medical cream daily. Branch calcipotrie 1-0 Yes [id number] Apply to Univers ne 1-21 area(s) 2 ity of (DOVONEX) 00:00: (two) [place] 0.005 % 00 times Medical cream daily. Branch calcipotrie 1-0 Yes [id number] Apply to [facility] ne 1-21 area(s) 2 ity of (DOVONEX) 00:00: (two) [place] 0.005 % 00 times Medical cream daily. Branch calcipotrie 1-0 Yes [id number] Apply to [facility] ne 1-21 area(s) 2 ity of (DOVONEX) 00:00: (two) [place] 0.005 % 00 times Medical cream daily. Branch calcipotrie 2021-0 Yes [id number] Apply to Univers ne 1-21 area(s) 2 ity of (DOVONEX) 00:00: (two) [place] 0.005 % 00 times Medical cream daily. Branch calcipotrie 2021-0 Yes [id number] Apply to Univers ne 1-21 area(s) 2 ity of (DOVONEX) 00:00: (two) [place] 0.005 % 00 times Medical cream daily. Branch calcipotrie 2021-0 Yes [id number] Apply to Univers ne 1-21 area(s) 2 ity of (DOVONEX) 00:00: (two) [place] 0.005 % 00 times Medical cream daily. Branch calcipotrie 2021-0 Yes [id number] Apply to Univers ne 1-21 area(s) 2 ity of (DOVONEX) 00:00: (two) [place] 0.005 % 00 times Medical cream daily. Branch calcipotrie 2021-0 Yes [id number] Apply to Univers ne 1-21 area(s) 2 ity of (DOVONEX) 00:00: (two) [place] 0.005 % 00 times Medical cream daily. Branch calcipotrie 2021-0 Yes [id number] Apply to [facility] ne 1-21 area(s) 2 ity of (DOVONEX) 00:00: (two) [place] 0.005 % 00 times Medical cream daily. Branch calcipotrie 2021-0 Yes [id number] Apply to Univers ne 1-21 area(s) 2 ity of (DOVONEX) 00:00: (two) [place] 0.005 % 00 times Medical cream daily. Branch calcipotrie 2021-0 Yes [id number] Apply to Univers ne 1-21 area(s) 2 ity of (DOVONEX) 00:00: (two) [place] 0.005 % 00 times Medical cream daily. Branch calcipotrie 2021-0 Yes [id number] Apply to Univers ne 1-21 area(s) 2 ity of (DOVONEX) 00:00: (two) [place] 0.005 % 00 times Medical cream daily. Branch calcipotrie 2021-0 Yes [id number] Apply to Univers ne 1-21 area(s) 2 ity of (DOVONEX) 00:00: (two) [place] 0.005 % 00 times Medical cream daily. Branch calcipotrie 2021-0 Yes [id number] Apply to Univers ne 1-21 area(s) 2 ity of (DOVONEX) 00:00: (two) [place] 0.005 % 00 times Medical cream daily. Branch calcipotrie 2021-0 Yes [id number] Apply to Univers ne 1-21 area(s) 2 ity of (DOVONEX) 00:00: (two) [place] 0.005 % 00 times Medical cream daily. Branch calcipotrie 1-0 Yes [id number] Apply to Univers ne 1-21 area(s) 2 ity of (DOVONEX) 00:00: (two) [place] 0.005 % 00 times Medical cream daily. Branch calcipotrie 2020-0 Yes [id number] Apply to Univers ne 1-21 area(s) 2 ity of (DOVONEX) 00:00: (two) [place] 0.005 % 00 times Medical cream daily. Branch calcipotrie 2020-0 Yes [id number] Apply to Univers ne 1-21 area(s) 2 ity of (DOVONEX) 00:00: (two) [place] 0.005 % 00 times Medical cream daily. Branch calcipotrie 2020-0 Yes [id number] Apply to Univers ne 1-21 area(s) 2 ity of (DOVONEX) 00:00: (two) [place] 0.005 % 00 times Medical cream daily. Branch calcipotrie 2020-0 Yes [id number] Apply to Univers ne 1-21 area(s) 2 ity of (DOVONEX) 00:00: (two) [place] 0.005 % 00 times Medical cream daily. Branch calcipotrie 2020-0 Yes [id number] Apply to Univers ne 1-21 area(s) 2 ity of (DOVONEX) 00:00: (two) [place] 0.005 % 00 times Medical cream daily. Branch calcipotrie 2020-0 Yes [id number] Apply to Univers ne 1-21 area(s) 2 ity of (DOVONEX) 00:00: (two) [place] 0.005 % 00 times Medical cream daily. Branch calcipotrie 2020-0 Yes [id number] Apply to Univers ne 1-21 area(s) 2 ity of (DOVONEX) 00:00: (two) [place] 0.005 % 00 times Medical cream daily. Branch DOC-Q-LACE Yes TAKE ONE [facility] 100 mg 4-[address] capsule 00:00: [facility] 00 TWICE A l DAY DOC-Q-LACE Yes TAKE ONE [facility] 100 mg 4-[address] capsule 00:00: MOUTH [facility] 00 TWICE A l DAY escitalopra 2015-02 Yes 20mg Take 20 mg Methodi m (LEXAPRO) 1-[address] 20 MG 12:44: Hospita tablet 21 l hydrochloro 2015-02 Yes 25mg Take 25 mg [facility] thiazide 1-[address] (HYDRODIURI 12:44: Hospit a L) 25 MG 21 l tablet levETIRAcet 2015-02 Yes 500mg Take 500 M ethodi am (KEPPRA) 1-[address] 500 MG 12:44: mouth. [facility]osp[facility] tablet 21 l linaclotide 2015-02 Yes Take by [facility] (LINZESS) 1-[address] 145 mcg 12:44: Hospita capsule 21 l amLODIPine 2015-02 Yes 10mg Take 10 mg M ethodi (NORVASC) 1-[address] 10 MG 12:44: Hospita tablet 21 l carBAMazepi 2015-02 Yes 200mg Take 200 M ethodi ne 1-[address] (TEGretol) 12:44: mouth. Hospi ta 200 mg 21 l tablet escitalopra 2015-02 Yes 20mg Take 20 mg Methodi m (LEXAPRO) 1-[address] 20 MG 12:44: Hospita tablet 21 l hydrochloro 2015-02 Yes 25mg Take 25 mg [facility]i thiazide 1-[address] (HYDRODIURI 12:44: Hospit a L) 25 MG 21 l tablet levETIRAcet 2015-02 Yes 500mg Take 500 M ethodi am (KEPPRA) 1-[address] 500 MG 12:44: mouth. [facility]ospita tablet 21 l linaclotide 2015-02 Yes Take by Met hodi (LINZESS) 1-[address] 145 mcg 12:44: Hospita capsule 21 l lisinopril 2015-02 Yes 40mg Take 40 mg M ethodi (PRINIVIL,Z 1-[address] ESTRIL) 40 12:44: Hospita MG tablet 21 l omeprazole 2015-02 Yes 20mg Take 20 mg M ethodi OTC 1-[address] (PriLOSEC 12:44: Hospita OTC) 20 MG 21 l EC tablet lisinopril 2015-02 Yes 40mg Take 40 mg M ethodi (PRINIVIL,Z 1-[address] ESTRIL) 40 12:44: Hospita MG tablet 21 l omeprazole 2015-02 Yes 20mg Take 20 mg M ethodi OTC 1-[address] (PriLOSEC 12:44: Hospita OTC) 20 MG 21 l EC tablet amLODIPine 2015-02 Yes 10mg Take 10 mg M ethodi (NORVASC) 1-[address] 10 MG 12:44: Hospita tablet 21 l carBAMazepi 2015-02 Yes 200mg Take 200 M ethodi ne 1-[address] (TEGretol) 12:44: mouth. Hospi ta 200 mg 21 l tablet gabapentin Yes 600mg Take 600 [facility] (NEURONTIN) 9-[address] 600 MG 00:00: mouth. Hospita tablet 00 l gabapentin Yes 600mg Take 600 [facility] (NEURONTIN) 9-[address] 600 MG 00:00: mouth. [facility]osp[facility] tablet 00 l Hydrochloro Hydrochloro No 1{table QD Hydrochlor thiazide 25 thiazide 25 t_in_th othiazide MG MG e_morni 25 MG ng} Amlodipine Amlodipine No 1{table QD Amlodipine Besylate 10 Besylate 10 t} Besylate MG MG 10 MG Trazodone Trazodone No 1{table QD Trazodone HCl 50 MG HCl 50 MG t_at_be HCl 50 MG dtime_a s_neede d} Lisinopril Lisinopril No 1{table QD Lisinopril 40 MG 40 MG t} 40 MG Amitriptyli Amitriptyli No 1{table QD Amitriptyl ne HCl 25 ne HCl 25 t} ine HCl 25 MG MG MG Lexapro 20 Lexapro 20 No 1{table QD Lexapro 20 MG MG t} MG Omeprazole Omeprazole No 1{capsu QD Omeprazole 20 mg 20 mg le} 20 mg Levetiracet Levetiracet No 1{table Levetirace am 500 MG am 500 MG t} sanon 500 MG Gabapentin Gabapentin No 2{table TID Gabapentin 600 MG 600 MG ts} 600 MG Carbamazepi Carbamazepi No 1{table BID Carbamazep ne 200 MG ne 200 MG t} ine 200 MG Risperidone Risperidone No 1{table Risperidon 1 MG 1 MG t} e 1 MG Hydrochloro Hydrochloro No 1{table QD Hydrochlor thiazide 25 thiazide 25 t_in_th othiazide MG MG e_morni 25 MG ng} Amlodipine Amlodipine No 1{table QD Amlodipine Besylate 10 Besylate 10 t} Besylate MG MG 10 MG Trazodone Trazodone No 1{table QD Trazodone HCl 50 MG HCl 50 MG t_at_be HCl 50 MG dtime_a s_neede d} Lisinopril Lisinopril No 1{table QD Lisinopril 40 MG 40 MG t} 40 MG Amitriptyli Amitriptyli No 1{table QD Amitriptyl ne HCl 25 ne HCl 25 t} ine HCl 25 MG MG MG Lexapro 20 Lexapro 20 No 1{table QD Lexapro 20 MG MG t} MG Omeprazole Omeprazole No 1{capsu QD Omeprazole 20 mg 20 mg le} 20 mg Levetiracet Levetiracet No 1{table Levetirace am 500 MG am 500 MG t} sanon 500 MG Gabapentin Gabapentin No 2{table TID Gabapentin 600 MG 600 MG ts} 600 MG Carbamazepi Carbamazepi No 1{table BID Carbamazep ne 200 MG ne 200 MG t} ine 200 MG Risperidone Risperidone No 1{table Risperidon 1 MG 1 MG t} e 1 MG Hydrochloro Hydrochloro No 1{table QD Hydrochlor thiazide 25 thiazide 25 t_in_th othiazide MG MG e_morni 25 MG ng} Amlodipine Amlodipine No 1{table QD Amlodipine Besylate 10 Besylate 10 t} Besylate MG MG 10 MG Trazodone Trazodone No 1{table QD Trazodone HCl 50 MG HCl 50 MG t_at_be HCl 50 MG dtime_a s_neede d} Lisinopril Lisinopril No 1{table QD Lisinopril 40 MG 40 MG t} 40 MG Amitriptyli Amitriptyli No 1{table QD Amitriptyl ne HCl 25 ne HCl 25 t} ine HCl 25 MG MG MG Amlodipine Amlodipine Yes [place] 1 tablet Common Besylate Besylate [facility] Lisinopril Lisinopril Yes [place] 1 tablet Common [facility] Carbamazepi Carbamazepi Yes [place] 1 tablet Common ne ne [facility] Risperidone Risperidone Yes [place] 1 tablet Common [facility] Lexapro Lexapro Yes Lindsay 1 tablet Comm on [facility] Hydrochloro Hydrochloro Yes Lindsay 1 tablet Common thiazide thiazide [facility] in the [facility] Levetiracet Levetiracet Yes [place] 1 tablet Common am am [facility] Gabapentin Gabapentin Yes [place] 2 tablets Common [facility] Amitriptyli Amitriptyli Yes [place] 1 tablet Common ne HCl ne HCl [facility] Omeprazole Omeprazole Yes [place] 1 capsule Common [facility] Levetiracet Levetiracet No 1{table Levetirace am 500 MG am 500 MG t} sanon 500 MG Lexapro 20 Lexapro 20 No 1{table QD Lexapro 20 MG MG t} MG Omeprazole Omeprazole No 1{capsu QD Omeprazole 20 mg 20 mg le} 20 mg Amlodipine Amlodipine No 1{table QD Amlodipine Besylate 10 Besylate 10 t} Besylate MG MG 10 MG Risperidone Risperidone No 1{table Risperidon 1 MG 1 MG t} e 1 MG Hydrochloro Hydrochloro No 1{table QD Hydrochlor thiazide 25 thiazide 25 t_in_th othiazide MG MG e_morni 25 MG ng} Carbamazepi Carbamazepi No 1{table BID Carbamazep ne 200 MG ne 200 MG t} ine 200 MG Gabapentin Gabapentin No 2{table TID Gabapentin 600 MG 600 MG ts} 600 MG Amitriptyli Amitriptyli No 1{table QD Amitriptyl ne HCl 25 ne HCl 25 t} ine HCl 25 MG MG MG Lisinopril Lisinopril No 1{table QD Lisinopril 40 MG 40 MG t} 40 MG Lexapro 20 Lexapro 20 No 1{table QD Lexapro 20 MG MG t} MG Omeprazole Omeprazole No 1{capsu QD Omeprazole 20 mg 20 mg le} 20 mg Levetiracet Levetiracet No 1{table Levetirace am 500 MG am 500 MG t} sanon 500 MG Gabapentin Gabapentin No 2{table TID Gabapentin 600 MG 600 MG ts} 600 MG Carbamazepi Carbamazepi No 1{table BID Carbamazep ne 200 MG ne 200 MG t} ine 200 MG Risperidone Risperidone No 1{table Risperidon 1 MG 1 MG t} e 1 MG Immunizations Ordered Filled Immunization Date Status Comments Sourc e Immunization Name Name SARS-COV-2 COVID-19 2021-03-15 Completed Unive rsity of MODERNA 0.25ML 00:00:00 [place] [facility] BOOSTER VACCINE Branch SARS-COV-2 COVID-19 2021-03-15 Completed Unive rsity of MODERNA 0.25ML 00:00:00 [place] [facility] BOOSTER VACCINE Branch SARS-COV-2 COVID-19 2021-03-15 Completed Unive rsity of MODERNA 0.25ML 00:00:00 [place] [facility] BOOSTER VACCINE Branch SARS-COV-2 COVID-19 2021-03-15 Completed Unive rsity of MODERNA 0.25ML 00:00:00 [place] [facility] BOOSTER VACCINE Branch SARS-COV-2 COVID-19 2021-03-15 Completed Unive rsity of MODERNA 0.25ML 00:00:00 [place] [facility] BOOSTER VACCINE Branch SARS-COV-2 COVID-19 2021-03-15 Completed Unive rsity of MODERNA 0.25ML 00:00:00 [place] [facility] BOOSTER VACCINE Branch SARS-COV-2 COVID-19 2021-03-15 Completed Unive rsity of MODERNA 0.25ML 00:00:00 [place] [facility] BOOSTER VACCINE Branch SARS-COV-2 COVID-19 2021-03-15 Completed Unive rsity of MODERNA 0.25ML 00:00:00 [place] [facility] BOOSTER VACCINE Branch SARS-COV-2 COVID-19 2021-03-15 Completed Unive rsity of MODERNA 0.25ML 00:00:00 [place] [facility] BOOSTER VACCINE Branch SARS-COV-2 COVID-19 2021-03-15 Completed Unive rsity of MODERNA 0.25ML 00:00:00 [place] [facility] BOOSTER VACCINE Branch SARS-COV-2 COVID-19 2021-03-15 Completed Unive rsity of MODERNA 0.25ML 00:00:00 [place] [facility] BOOSTER VACCINE Branch SARS-COV-2 COVID-19 2021-03-15 Completed Unive rsity of MODERNA 0.25ML 00:00:00 [place] [facility] BOOSTER VACCINE Branch SARS-COV-2 COVID-19 2021-03-15 Completed Unive rsity of MODERNA 0.25ML 00:00:00 [place] [facility] BOOSTER VACCINE Branch SARS-COV-2 COVID-19 2021-03-15 Completed Unive rsity of MODERNA 0.25ML 00:00:00 [place] [facility] BOOSTER VACCINE Branch SARS-COV-2 COVID-19 2021-03-15 Completed Unive rsity of MODERNA 0.25ML 00:00:00 [place] [facility] BOOSTER VACCINE Branch SARS-COV-2 COVID-19 2021-03-15 Completed Unive rsity of MODERNA 0.25ML 00:00:00 [place] [facility] BOOSTER VACCINE Branch SARS-COV-2 COVID-19 2021-03-15 Completed [facility] MODERNA 0.25ML 00:00:00 [facility] SARS-COV-2 COVID-19 2021-03-15 Completed [facility] MODERNA 0.25ML 00:00:00 [place] [facility] SARS-COV-2 COVID-19 2021-03-15 Completed [facility] MODERNA 0.25ML 00:00:00 [place] [facility] SARS-COV-2 COVID-19 2021-03-15 Completed [facility] MODERNA 0.25ML 00:00:00 [place] [facility] SARS-COV-2 COVID-19 2021-03-15 Completed [facility] MODERNA 0.25ML 00:00:00 [place] [facility] SARS-COV-2 COVID-19 2021-03-15 Completed [facility] MODERNA 0.25ML 00:00:00 [place] [facility] SARS-COV-2 COVID-19 2021-03-15 Completed [facility] MODERNA 0.25ML 00:00:00 [place] [facility] SARS-COV-2 COVID-19 2021-03-15 Completed [facility] MODERNA 0.25ML 00:00:00 [place] [facility] SARS-COV-2 COVID-19 2021-03-15 Completed [facility] MODERNA 0.25ML 00:00:00 [place] [facility] SARS-COV-2 COVID-19 2021-03-15 Completed [facility] MODERNA 0.25ML 00:00:00 [place] [facility] SARS-COV-2 COVID-19 2021-03-15 Completed [facility] MODERNA 0.25ML 00:00:00 [place] [facility] SARS-COV-2 COVID-19 2021-03-15 Completed [facility] MODERNA 0.25ML 00:00:00 [place] [facility] SARS-COV-2 COVID-19 2021-03-15 Completed [facility] MODERNA 0.25ML 00:00:00 [place] [facility] SARS-COV-2 COVID-19 2021-03-15 Completed [facility] MODERNA BOOSTER 00:00:00 [place] [facility] SARS-COV-2 COVID-19 2021-03-15 Completed [facility] MODERNA BOOSTER 00:00:00 [place] [facility] SARS-COV-2 COVID-19 2021-03-15 Completed [facility] MODERNA BOOSTER 00:00:00 [place] [facility] SARS-COV-2 COVID-19 2021-03-15 Completed [facility] MODERNA BOOSTER 00:00:00 [place] [facility] SARS-COV-2 COVID-19 2021-03-15 Completed [facility] MODERNA BOOSTER 00:00:00 [place] [facility] SARS-COV-2 COVID-19 2021-03-15 Completed [facility] MODERNA BOOSTER 00:00:00 [place] [facility] SARS-COV-2 COVID-19 2021-03-15 Completed [facility] MODERNA BOOSTER 00:00:00 [place] [facility] SARS-COV-2 COVID-19 2021-03-15 Completed [facility] MODERNA BOOSTER 00:00:00 [place] [facility] SARS-COV-2 COVID-19 2021-03-15 Completed [facility] MODERNA 0.25ML 00:00:00 [place] [facility] SARS-COV-2 COVID-19 2021-03-15 Completed [facility] MODERNA 0.25ML 00:00:00 [place] [facility] SARS-COV-2 COVID-19 2021-03-15 Completed [facility] MODERNA 0.25ML 00:00:00 [place] [facility] SARS-COV-2 COVID-19 2021-03-15 Completed [facility] MODERNA 0.25ML 00:00:00 [place] [facility] SARS-COV-2 COVID-19 2021-03-15 Completed [facility] MODERNA 0.25ML 00:00:00 [place] [facility] SARS-COV-2 COVID-19 2021-03-15 Completed [facility] MODERNA 0.25ML 00:00:00 [place] [facility] SARS-COV-2 COVID-19 2020-05-13 Completed [facility] MODERNA 12+ YRS 00:00:00 [place] [facility] SARS-COV-2 COVID-19 2020-05-13 Completed [facility] MODERNA 12+ YRS 00:00:00 [place] [facility] SARS-COV-2 COVID-19 2020-05-13 Completed [facility] MODERNA 12+ YRS 00:00:00 [place] [facility] SARS-COV-2 COVID-19 2020-05-13 Completed [facility] MODERNA 12+ YRS 00:00:00 [place] [facility] SARS-COV-2 COVID-19 2020-05-13 Completed [facility] MODERNA 12+ YRS 00:00:00 [place] [facility] SARS-COV-2 COVID-19 2020-05-13 Completed [facility] MODERNA 12+ YRS 00:00:00 [place] [facility] SARS-COV-2 COVID-19 2020-05-13 Completed [facility] MODERNA 12+ YRS 00:00:00 [place] [facility] SARS-COV-2 COVID-19 2020-05-13 Completed [facility] MODERNA 12+ YRS 00:00:00 [place] [facility] SARS-COV-2 COVID-19 2020-05-13 Completed [facility] MODERNA 12+ YRS 00:00:00 [place] [facility] SARS-COV-2 COVID-19 2020-05-13 Completed [facility] MODERNA 12+ YRS 00:00:00 [place] [facility] SARS-COV-2 COVID-19 2020-05-13 Completed [facility] MODERNA 12+ YRS 00:00:00 [place] [facility] SARS-COV-2 COVID-19 2020-05-13 Completed [facility] MODERNA 12+ YRS 00:00:00 [place] [facility] SARS-COV-2 COVID-19 2020-05-13 Completed [facility] MODERNA 12+ YRS 00:00:00 [place] [facility] SARS-COV-2 COVID-19 2020-05-13 Completed [facility] MODERNA 12+ YRS 00:00:00 [place] [facility] SARS-COV-2 COVID-19 2020-05-13 Completed [facility] MODERNA 12+ YRS 00:00:00 [place] [facility] SARS-COV-2 COVID-19 2020-05-13 Completed [facility] MODERNA 12+ YRS 00:00:00 [place] [facility] SARS-COV-2 COVID-19 2020-05-13 Completed [facility] MODERNA 12+ YRS 00:00:00 [place] [facility] SARS-COV-2 COVID-19 2020-05-13 Completed [facility] MODERNA 12+ YRS 00:00:00 [place] [facility] SARS-COV-2 COVID-19 2020-05-13 Completed [facility] MODERNA 12+ YRS 00:00:00 [place] [facility] SARS-COV-2 COVID-19 2020-05-13 Completed [facility] MODERNA 12+ YRS 00:00:00 [place] [facility] SARS-COV-2 COVID-19 2020-05-13 Completed [facility] MODERNA 12+ YRS 00:00:00 [place] [facility] SARS-COV-2 COVID-19 2020-05-13 Completed [facility] MODERNA 12+ YRS 00:00:00 [place] [facility] SARS-COV-2 COVID-19 2020-05-13 Completed [facility] MODERNA 12+ YRS 00:00:00 [place] [facility] SARS-COV-2 COVID-19 2020-05-13 Completed [facility] MODERNA 12+ YRS 00:00:00 [place] [facility] SARS-COV-2 COVID-19 2020-05-13 Completed [facility] MODERNA 12+ YRS 00:00:00 [place] [facility] SARS-COV-2 COVID-19 2020-05-13 Completed [facility] MODERNA 12+ YRS 00:00:00 [place] [facility] SARS-COV-2 COVID-19 2020-05-13 Completed [facility] MODERNA 12+ YRS 00:00:00 [place] [facility] SARS-COV-2 COVID-19 2020-05-13 Completed [facility] MODERNA 12+ YRS 00:00:00 [place] [facility] SARS-COV-2 COVID-19 2020-05-13 Completed [facility] MODERNA 12+ YRS 00:00:00 [place] [facility] SARS-COV-2 COVID-19 2020-05-13 Completed [facility] MODERNA VACCINE 00:00:00 [place] [facility] SARS-COV-2 COVID-19 2020-05-13 Completed [facility] MODERNA VACCINE 00:00:00 [place] [facility] SARS-COV-2 COVID-19 2020-05-13 Completed [facility] MODERNA VACCINE 00:00:00 [facility] SARS-COV-2 COVID-19 2020-05-13 Completed [facility] MODERNA VACCINE 00:00:00 [place] [facility] SARS-COV-2 COVID-19 2020-05-13 Completed [facility] MODERNA VACCINE 00:00:00 [place] [facility] SARS-COV-2 COVID-19 2020-05-13 Completed [facility] MODERNA VACCINE 00:00:00 [facility] ical [facility] SARS-COV-2 COVID-19 2020-05-13 Completed [facility] MODERNA VACCINE 00:00:00 [place] [facility] SARS-COV-2 COVID-19 2020-05-13 Completed [facility] MODERNA VACCINE 00:00:00 [place] [facility] SARS-COV-2 COVID-19 2020-05-13 Completed [facility] MODERNA VACCINE 00:00:00 [place] [facility] SARS-COV-2 COVID-19 2020-05-13 Completed [facility] MODERNA VACCINE 00:00:00 [place] [facility] SARS-COV-2 COVID-19 2020-05-13 Completed [facility] MODERNA VACCINE 00:00:00 [place] [facility] SARS-COV-2 COVID-19 2020-05-13 Completed [facility] MODERNA VACCINE 00:00:00 [place] [facility] SARS-COV-2 COVID-19 2020-05-13 Completed [facility] MODERNA VACCINE 00:00:00 [place] [facility] SARS-COV-2 COVID-19 2020-05-13 Completed [facility] MODERNA VACCINE 00:00:00 [place] [facility] SARS-COV-2 COVID-19 2020-04-15 Completed [facility] MODERNA 12+ YRS 00:00:00 [place] [facility] SARS-COV-2 COVID-19 2020-04-15 Completed [facility] MODERNA 12+ YRS 00:00:00 [place] [facility] SARS-COV-2 COVID-19 2020-04-15 Completed [facility] MODERNA 12+ YRS 00:00:00 [place] [facility] SARS-COV-2 COVID-19 2020-04-15 Completed [facility] MODERNA 12+ YRS 00:00:00 [place] [facility] SARS-COV-2 COVID-19 2020-04-15 Completed [facility] MODERNA 12+ YRS 00:00:00 [place] [facility] SARS-COV-2 COVID-19 2020-04-15 Completed [facility] MODERNA 12+ YRS 00:00:00 [place] [facility] SARS-COV-2 COVID-19 2020-04-15 Completed [facility] MODERNA 12+ YRS 00:00:00 [place] [facility] SARS-COV-2 COVID-19 2020-04-15 Completed [facility] MODERNA 12+ YRS 00:00:00 [place] [facility] SARS-COV-2 COVID-19 2020-04-15 Completed [facility] MODERNA 12+ YRS 00:00:00 [place] [facility] SARS-COV-2 COVID-19 2020-04-15 Completed [facility] MODERNA 12+ YRS 00:00:00 [place] [facility] SARS-COV-2 COVID-19 2020-04-15 Completed [facility] MODERNA 12+ YRS 00:00:00 [place] [facility] SARS-COV-2 COVID-19 2020-04-15 Completed [facility] MODERNA 12+ YRS 00:00:00 [place] [facility] SARS-COV-2 COVID-19 2020-04-15 Completed [facility] MODERNA 12+ YRS 00:00:00 [place] [facility] SARS-COV-2 COVID-19 2020-04-15 Completed [facility] MODERNA 12+ YRS 00:00:00 [place] [facility] SARS-COV-2 COVID-19 2020-04-15 Completed [facility] MODERNA 12+ YRS 00:00:00 [place] [facility] SARS-COV-2 COVID-19 2020-04-15 Completed [facility] MODERNA 12+ YRS 00:00:00 [place] [facility] SARS-COV-2 COVID-19 2020-04-15 Completed [facility] MODERNA 12+ YRS 00:00:00 [place] [facility] SARS-COV-2 COVID-19 2020-04-15 Completed [facility] MODERNA 12+ YRS 00:00:00 [place] [facility] SARS-COV-2 COVID-19 2020-04-15 Completed [facility] MODERNA 12+ YRS 00:00:00 [place] [facility] SARS-COV-2 COVID-19 2020-04-15 Completed [facility] MODERNA 12+ YRS 00:00:00 [place] [facility] SARS-COV-2 COVID-19 2020-04-15 Completed [facility] MODERNA 12+ YRS 00:00:00 [place] [facility] SARS-COV-2 COVID-19 2020-04-15 Completed [facility] MODERNA 12+ YRS 00:00:00 [place] [facility] SARS-COV-2 COVID-19 2020-04-15 Completed [facility] MODERNA 12+ YRS 00:00:00 [place] [facility] SARS-COV-2 COVID-19 2020-04-15 Completed [facility] MODERNA 12+ YRS 00:00:00 [place] [facility] SARS-COV-2 COVID-19 2020-04-15 Completed [facility] MODERNA 12+ YRS 00:00:00 [place] [facility] SARS-COV-2 COVID-19 2020-04-15 Completed [facility] MODERNA 12+ YRS 00:00:00 [place] [facility] SARS-COV-2 COVID-19 2020-04-15 Completed [facility] MODERNA 12+ YRS 00:00:00 [place] [facility] SARS-COV-2 COVID-19 2020-04-15 Completed [facility] MODERNA 12+ YRS 00:00:00 [place] [facility] SARS-COV-2 COVID-19 2020-04-15 Completed [facility] MODERNA 12+ YRS 00:00:00 [place] [facility] SARS-COV-2 COVID-19 2020-04-15 Completed [facility] MODERNA VACCINE 00:00:00 [place] [facility] SARS-COV-2 COVID-19 2020-04-15 Completed [facility] MODERNA VACCINE 00:00:00 [place] [facility] SARS-COV-2 COVID-19 2020-04-15 Completed [facility] MODERNA VACCINE 00:00:00 [place] [facility] SARS-COV-2 COVID-19 2020-04-15 Completed [facility] MODERNA VACCINE 00:00:00 [facility] ical [facility] SARS-COV-2 COVID-19 2020-04-15 Completed [facility] MODERNA VACCINE 00:00:00 [place] [facility] SARS-COV-2 COVID-19 2020-04-15 Completed [facility] of MODERNA VACCINE 00:00:00 [facility] SARS-COV-2 COVID-19 2020-04-15 Completed [facility] of MODERNA VACCINE 00:00:00 [facility] SARS-COV-2 COVID-19 2020-04-15 Completed [facility] of MODERNA VACCINE 00:00:00 [facility] SARS-COV-2 COVID-19 2020-04-15 Completed [facility] of MODERNA VACCINE 00:00:00 [facility] SARS-COV-2 COVID-19 2020-04-15 Completed [facility] of MODERNA VACCINE 00:00:00 [facility] SARS-COV-2 COVID-19 2020-04-15 Completed [facility] of MODERNA VACCINE 00:00:00 [facility] SARS-COV-2 COVID-19 2020-04-15 Completed [facility] of MODERNA VACCINE 00:00:00 [facility] SARS-COV-2 COVID-19 2020-04-15 Completed [facility] of MODERNA VACCINE 00:00:00 [facility] SARS-COV-2 COVID-19 2020-04-15 Completed [facility] of MODERNA VACCINE 00:00:00 [facility] Influenza Virus 2020-01-04 Completed [facility] Vaccine Recomb Quad 00:00:00 [facility], Preserv and ABX Branc h Free 18-64 YRS Influenza Virus 2020-01-04 Completed [facility] Vaccine Recomb Quad 00:00:00 [facility], Preserv and ABX Branc h Free 18-64 YRS Influenza Virus 2020-01-04 Completed [facility] Vaccine Recomb Quad 00:00:00 [facility], Preserv and ABX Branc h Free 18-64 YRS Influenza Virus 2020-01-04 Completed [facility] Vaccine Recomb Quad 00:00:00 [facility], Preserv and ABX Branc h Free 18-64 YRS Influenza Virus 2020-01-04 Completed [facility] Vaccine Recomb Quad 00:00:00 [facility], Preserv and ABX Branc h Free 18-64 YRS Influenza Virus 2020-01-04 Completed [facility] Vaccine Recomb Quad 00:00:00 [facility], Preserv and ABX Branc h Free 18-64 YRS Influenza Virus 2020-01-04 Completed [facility] Vaccine Recomb Quad 00:00:00 [facility], Preserv and ABX Branc h Free 18-64 YRS Influenza Virus 2020-01-04 Completed [facility] Vaccine Recomb Quad 00:00:00 [facility], Preserv and ABX Branc h Free 18-64 YRS Influenza Virus 2020-01-04 Completed [facility] Vaccine Recomb Quad 00:00:00 [facility], Preserv and ABX Branc h Free 18-64 YRS Influenza Virus 2020-01-04 Completed [facility] Vaccine Recomb Quad 00:00:00 [facility], Preserv and ABX Branc h Free 18-64 YRS Influenza Virus 2020-01-04 Completed [facility] Vaccine Recomb Quad 00:00:00 [facility], Preserv and ABX Branc h Free 18-64 YRS Influenza Virus 2020-01-04 Completed [facility] Vaccine Recomb Quad 00:00:00 [facility], Preserv and ABX Branc h Free 18-64 YRS Influenza Virus 2020-01-04 Completed [facility] Vaccine Recomb Quad 00:00:00 [facility], Preserv and ABX Branc h Free 18-64 YRS Influenza Virus 2020-01-04 Completed [facility] Vaccine Recomb Quad 00:00:00 [facility], Preserv and ABX Branc h Free 18-64 YRS Influenza Virus 2020-01-04 Completed [facility] Vaccine Recomb Quad 00:00:00 [facility], Preserv and ABX Branc h Free 18-64 YRS Influenza Virus 2020-01-04 Completed [facility] Vaccine Recomb Quad 00:00:00 [facility], Preserv and ABX Branc h Free 18-64 YRS Influenza Virus 2020-01-04 Completed [facility] Vaccine Recomb Quad 00:00:00 [facility], Preserv and ABX Branc h Free 18-64 YRS Influenza Virus 2020-01-04 Completed [facility] Vaccine Recomb Quad 00:00:00 [facility], Preserv and ABX Branc h Free 18-64 YRS Influenza Virus 2020-01-04 Completed [facility] Vaccine Recomb Quad 00:00:00 [facility], Preserv and ABX Branc h Free 18-64 YRS Influenza Virus 2020-01-04 Completed [facility] Vaccine Recomb Quad 00:00:00 [facility], Preserv and ABX Branc h Free 18-64 YRS Influenza Virus 2020-01-04 Completed [facility] Vaccine Recomb Quad 00:00:00 [facility], Preserv and ABX Branc h Free 18-64 YRS Influenza Virus 2020-01-04 Completed [facility] Vaccine Recomb Quad 00:00:00 [facility], Preserv and ABX Branc h Free 18-64 YRS Influenza Virus 2020-01-04 Completed [facility] Vaccine Recomb Quad 00:00:00 [facility], Preserv and ABX Branc h Free 18-64 YRS Influenza Virus 2020-01-04 Completed [facility] Vaccine Recomb Quad 00:00:00 [facility], Preserv and ABX Branc h Free 18-64 YRS Influenza Virus 2020-01-04 Completed [facility] Vaccine Recomb Quad 00:00:00 [facility], Preserv and ABX Branc h Free 18-64 YRS Influenza Virus 2020-01-04 Completed [facility] Vaccine Recomb Quad 00:00:00 [facility], Preserv and ABX Branc h Free 18-64 YRS Influenza Virus 2020-01-04 Completed [facility] Vaccine Recomb Quad 00:00:00 [facility], Preserv and ABX Branc h Free 18-64 YRS Influenza Virus 2020-01-04 Completed [facility] Vaccine Recomb Quad 00:00:00 [facility], Preserv and ABX Branc h Free 18-64 YRS Influenza Virus 2020-01-04 Completed [facility] Vaccine Recomb Quad 00:00:00 [facility], Preserv and ABX Branc h Free 18-64 YRS Influenza Virus 2020-01-04 Completed [facility] Vaccine Recomb Quad 00:00:00 [facility], Preserv and ABX Branc h Free 18-64 YRS Influenza Virus 2020-01-04 Completed [facility] Vaccine Recomb Quad 00:00:00 [facility], Preserv and ABX Branc h Free 18-64 YRS Influenza Virus 2020-01-04 Completed [facility] Vaccine Recomb Quad 00:00:00 [facility], Preserv and ABX Branc h Free 18-64 YRS Influenza Virus 2020-01-04 Completed [facility] Vaccine Recomb Quad 00:00:00 [facility], Preserv and ABX Branc h Free 18-64 YRS Influenza Virus 2020-01-04 Completed [facility] Vaccine Recomb Quad 00:00:00 [facility], Preserv and ABX Branc h Free 18-64 YRS Influenza Virus 2020-01-04 Completed [facility] Vaccine Recomb Quad 00:00:00 [facility], Preserv and ABX Branc h Free 18-64 YRS Influenza Virus 2020-01-04 Completed [facility] Vaccine Recomb Quad 00:00:00 [facility], Preserv and ABX Branc h Free 18-64 YRS Influenza Virus 2020-01-04 Completed [facility] Vaccine Recomb Quad 00:00:00 [facility], Preserv and ABX Branc h Free 18-64 YRS Influenza Virus 2020-01-04 Completed [facility] Vaccine Recomb Quad 00:00:00 [facility], Preserv and ABX Branc h Free 18-64 YRS Influenza Virus 2020-01-04 Completed [facility] Vaccine Recomb Quad 00:00:00 [facility], Preserv and ABX Branc h Free 18-64 YRS Influenza Virus 2020-01-04 Completed [facility] Vaccine Recomb Quad 00:00:00 [facility], Preserv and ABX Branc h Free 18-64 YRS Influenza Virus 2020-01-04 Completed [facility] Vaccine Recomb Quad 00:00:00 [facility], Preserv and ABX Branc h Free 18-64 YRS Influenza Virus 2020-01-04 Completed [facility] Vaccine Recomb Quad 00:00:00 [facility], Preserv and ABX Branc h Free 18-64 YRS Influenza Virus 2020-01-04 Completed [facility] Vaccine Recomb Quad 00:00:00 [facility], Preserv and ABX Branc h Free 18-64 YRS Influenza Virus 2015-12-28 Completed [facility] Vaccine Quad IM 3+ 00:00:00 [facility] Influenza Virus 2015-12-28 Completed [facility] of Vaccine Quad IM 3+ 00:00:00 [facility] Influenza Virus 2015-12-28 Completed [facility] Vaccine Quad IM 3+ 00:00:00 [facility] Influenza Virus 2015-12-28 Completed [facility] of Vaccine Quad IM 3+ 00:00:00 [facility] Influenza Virus 2015-12-28 Completed [facility] of Vaccine Quad IM 3+ 00:00:00 [facility] Influenza Virus 2015-12-28 Completed [facility] Vaccine Quad IM 3+ 00:00:00 [facility] ER Influenza Virus 2015-12-28 Completed [facility] of Vaccine Quad IM 3+ 00:00:00 [facility] ER Influenza Virus 2015-12-28 Completed [facility] Vaccine Quad IM 3+ 00:00:00 [facility] Influenza Virus 2015-12-28 Completed [facility] Vaccine Quad IM 3+ 00:00:00 [facility] ER Influenza Virus 2015-12-28 Completed [facility] Vaccine Quad IM 3+ 00:00:00 [facility] ER Influenza Virus 2015-12-28 Completed [facility] Vaccine Quad IM 3+ 00:00:00 [facility] Influenza Virus 2015-12-28 Completed [facility] of Vaccine Quad IM 3+ 00:00:00 [facility] ER Influenza Virus 2015-12-28 Completed [facility] Vaccine Quad IM 3+ 00:00:00 [facility] Influenza Virus 2015-12-28 Completed [facility] Vaccine Quad IM 3+ 00:00:00 [facility] Influenza Virus 2015-12-28 Completed [facility] Vaccine Quad IM 3+ 00:00:00 [facility] Influenza Virus 2015-12-28 Completed [facility] Vaccine Quad IM 3+ 00:00:00 [facility] ER Influenza Virus 2015-12-28 Completed [facility] Vaccine Quad IM 3+ 00:00:00 [facility] Influenza Virus 2015-12-28 Completed [facility] Vaccine Quad IM 3+ 00:00:00 [facility] Influenza Virus 2015-12-28 Completed [facility] Vaccine Quad IM 3+ 00:00:00 [facility] Influenza Virus 2015-12-28 Completed [facility] Vaccine Quad IM 3+ 00:00:00 [facility] Influenza Virus 2015-12-28 Completed [facility] Vaccine Quad IM 3+ 00:00:00 [facility] Influenza Virus 2015-12-28 Completed [facility] Vaccine Quad IM 3+ 00:00:00 [facility] Influenza Virus 2015-12-28 Completed [facility] Vaccine Quad IM 3+ 00:00:00 [facility] Influenza Virus 2015-12-28 Completed [facility] Vaccine Quad IM 3+ 00:00:00 [facility] Influenza Virus 2015-12-28 Completed [facility] Vaccine Quad IM 3+ 00:00:00 [facility] Influenza Virus 2015-12-28 Completed [facility] Vaccine Quad IM 3+ 00:00:00 [facility] Influenza Virus 2015-12-28 Completed [facility] Vaccine Quad IM 3+ 00:00:00 [facility] Influenza Virus 2015-12-28 Completed [facility] Vaccine Quad IM 3+ 00:00:00 [facility] Influenza Virus 2015-12-28 Completed [facility] Vaccine Quad IM 3+ 00:00:00 [facility] ER Influenza Virus 2015-12-28 Completed [facility] Vaccine Quad IM 3+ 00:00:00 [facility] Influenza Virus 2015-12-28 Completed [facility] Vaccine Quad IM 3+ 00:00:00 [facility] Influenza Virus 2015-12-28 Completed [facility] Vaccine Quad IM 3+ 00:00:00 [facility] Influenza Virus 2015-12-28 Completed [facility] Vaccine Quad IM 3+ 00:00:00 [facility] ER Influenza Virus 2015-12-28 Completed [facility] Vaccine Quad IM 3+ 00:00:00 [facility] ER Influenza Virus 2015-12-28 Completed [facility] Vaccine Quad IM 3+ 00:00:00 [facility] Influenza Virus 2015-12-28 Completed [facility] Vaccine Quad IM 3+ 00:00:00 [facility] Influenza Virus 2015-12-28 Completed [facility] Vaccine Quad IM 3+ 00:00:00 [facility] ER Influenza Virus 2015-12-28 Completed [facility] Vaccine Quad IM 3+ 00:00:00 [facility] ER Influenza Virus 2015-12-28 Completed [facility] Vaccine Quad IM 3+ 00:00:00 [facility] Influenza Virus 2015-12-28 Completed [facility] Vaccine Quad IM 3+ 00:00:00 [facility] ER Influenza Virus 2015-12-28 Completed [facility] Vaccine Quad IM 3+ 00:00:00 [facility] ER Influenza Virus 2015-12-28 Completed [facility] Vaccine Quad IM 3+ 00:00:00 [facility] ER Influenza Virus 2015-12-28 Completed [facility] Vaccine Quad IM 3+ 00:00:00 [facility] ER FLUZONE QUAD PF 2015-12-28 Completed [facility] 00:00:00 [facility] FLUZONE QUAD PF 2015-12-28 Completed [facility] 00:00:00 [facility] Influenza Virus 2015-01-26 Completed [facility] Vaccine Quad IM 3+ 00:00:00 [facility] Influenza Virus 2015-01-26 Completed [facility] Vaccine Quad IM 3+ 00:00:00 [facility] Influenza Virus 2015-01-26 Completed [facility] Vaccine Quad IM 3+ 00:00:00 [facility] ER Influenza Virus 2015-01-26 Completed [facility] Vaccine Quad IM 3+ 00:00:00 [facility] Influenza Virus 2015-01-26 Completed Universit y of Vaccine Quad IM 3+ 00:00:00 [facility] Influenza Virus 2015-01-26 Completed Universit y of Vaccine Quad IM 3+ 00:00:00 [facility] Influenza Virus 2015-01-26 Completed Universit y of Vaccine Quad IM 3+ 00:00:00 [facility] Influenza Virus 2015-01-26 Completed Universit y of Vaccine Quad IM 3+ 00:00:00 [facility] Influenza Virus 2015-01-26 Completed Universit y of Vaccine Quad IM 3+ 00:00:00 [facility] Influenza Virus 2015-01-26 Completed Universit y of Vaccine Quad IM 3+ 00:00:00 [facility] Influenza Virus 2015-01-26 Completed Universit y of Vaccine Quad IM 3+ 00:00:00 [facility] Influenza Virus 2015-01-26 Completed Universit y of Vaccine Quad IM 3+ 00:00:00 [facility] Influenza Virus 2015-01-26 Completed Universit y of Vaccine Quad IM 3+ 00:00:00 [facility] Influenza Virus 2015-01-26 Completed Universit y of Vaccine Quad IM 3+ 00:00:00 [facility] Influenza Virus 2015-01-26 Completed Universit y of Vaccine Quad IM 3+ 00:00:00 [facility] Influenza Virus 2015-01-26 Completed Universit y of Vaccine Quad IM 3+ 00:00:00 [facility] Influenza Virus 2015-01-26 Completed Universit y of Vaccine Quad IM 3+ 00:00:00 [facility] Influenza Virus 2015-01-26 Completed Universit y of Vaccine Quad IM 3+ 00:00:00 [facility] Influenza Virus 2015-01-26 Completed Universit y of Vaccine Quad IM 3+ 00:00:00 [facility] Influenza Virus 2015-01-26 Completed Universit y of Vaccine Quad IM 3+ 00:00:00 [facility] Influenza Virus 2015-01-26 Completed Universit y of Vaccine Quad IM 3+ 00:00:00 [facility] Influenza Virus 2015-01-26 Completed Universit y of Vaccine Quad IM 3+ 00:00:00 [facility] Influenza Virus 2015-01-26 Completed Universit y of Vaccine Quad IM 3+ 00:00:00 [facility] Influenza Virus 2015-01-26 Completed Universit y of Vaccine Quad IM 3+ 00:00:00 [facility] Influenza Virus 2015-01-26 Completed Universit y of Vaccine Quad IM 3+ 00:00:00 [facility] Influenza Virus 2015-01-26 Completed Universit y of Vaccine Quad IM 3+ 00:00:00 [facility] Influenza Virus 2015-01-26 Completed Universit y of Vaccine Quad IM 3+ 00:00:00 [facility] Influenza Virus 2015-01-26 Completed Universit y of Vaccine Quad IM 3+ 00:00:00 [facility] Influenza Virus 2015-01-26 Completed Universit y of Vaccine Quad IM 3+ 00:00:00 [facility] Influenza Virus 2015-01-26 Completed Universit y of Vaccine Quad IM 3+ 00:00:00 [facility] Influenza Virus 2015-01-26 Completed Universit y of Vaccine Quad IM 3+ 00:00:00 [facility] Influenza Virus 2015-01-26 Completed Universit y of Vaccine Quad IM 3+ 00:00:00 [facility] Influenza Virus 2015-01-26 Completed Universit y of Vaccine Quad IM 3+ 00:00:00 [facility] Influenza Virus 2015-01-26 Completed Universit y of Vaccine Quad IM 3+ 00:00:00 [facility] Influenza Virus 2015-01-26 Completed Universit y of Vaccine Quad IM 3+ 00:00:00 [facility] Influenza Virus 2015-01-26 Completed Universit y of Vaccine Quad IM 3+ 00:00:00 [facility] Influenza Virus 2015-01-26 Completed Universit y of Vaccine Quad IM 3+ 00:00:00 [facility] Influenza Virus 2015-01-26 Completed Universit y of Vaccine Quad IM 3+ 00:00:00 [facility] Influenza Virus 2015-01-26 Completed Universit y of Vaccine Quad IM 3+ 00:00:00 [facility] Influenza Virus 2015-01-26 Completed Universit y of Vaccine Quad IM 3+ 00:00:00 [facility] Influenza Virus 2015-01-26 Completed Universit y of Vaccine Quad IM 3+ 00:00:00 [facility] Influenza Virus 2015-01-26 Completed Universit y of Vaccine Quad IM 3+ 00:00:00 [facility] Influenza Virus 2015-01-26 Completed Universit y of Vaccine Quad IM 3+ 00:00:00 [facility] Influenza Virus 2014-01-16 Completed Universit y of Vaccine - Whole 00:00:00 [facility] Influenza Virus 2014-01-16 Completed Universit y of Vaccine - Whole 00:00:00 [facility] Influenza Virus 2014-01-16 Completed Universit y of Vaccine - Whole 00:00:00 [facility] Influenza Virus 2014-01-16 Completed Universit y of Vaccine - Whole 00:00:00 [facility] Influenza Virus 2014-01-16 Completed Universit y of Vaccine - Whole 00:00:00 [facility] Influenza Virus 2014-01-16 Completed Universit y of Vaccine - Whole 00:00:00 [facility] Influenza Virus 2014-01-16 Completed Universit y of Vaccine - Whole 00:00:00 [facility] Influenza Virus 2014-01-16 Completed Universit y of Vaccine - Whole 00:00:00 [facility] Influenza Virus 2014-01-16 Completed Universit y of Vaccine - Whole 00:00:00 [facility] Influenza Virus 2014-01-16 Completed Universit y of Vaccine - Whole 00:00:00 [facility] Influenza Virus 2014-01-16 Completed Universit y of Vaccine - Whole 00:00:00 [facility] Influenza Virus 2014-01-16 Completed Universit y of Vaccine - Whole 00:00:00 [facility] Influenza Virus 2014-01-16 Completed Universit y of Vaccine - Whole 00:00:00 [facility] Influenza Virus 2014-01-16 Completed Universit y of Vaccine - Whole 00:00:00 [facility] Influenza Virus 2014-01-16 Completed Universit y of Vaccine - Whole 00:00:00 [facility] Influenza Virus 2014-01-16 Completed Universit y of Vaccine - Whole 00:00:00 [facility] Influenza Virus 2014-01-16 Completed Universit y of Vaccine - Whole 00:00:00 [facility] Influenza Virus 2014-01-16 Completed Universit y of Vaccine - Whole 00:00:00 [facility] Influenza Virus 2014-01-16 Completed Universit y of Vaccine - Whole 00:00:00 [facility] Influenza Virus 2014-01-16 Completed Universit y of Vaccine - Whole 00:00:00 [facility] Influenza Virus 2014-01-16 Completed Universit y of Vaccine - Whole 00:00:00 [facility] Influenza Virus 2014-01-16 Completed Universit y of Vaccine - Whole 00:00:00 [facility] Influenza Virus 2014-01-16 Completed Universit y of Vaccine - Whole 00:00:00 [facility] Influenza Virus 2014-01-16 Completed Universit y of Vaccine - Whole 00:00:00 [facility] Influenza Virus 2014-01-16 Completed Universit y of Vaccine - Whole 00:00:00 [facility] Influenza Virus 2014-01-16 Completed Universit y of Vaccine - Whole 00:00:00 [facility] Influenza Virus 2014-01-16 Completed Universit y of Vaccine - Whole 00:00:00 [facility] Influenza Virus 2014-01-16 Completed Universit y of Vaccine - Whole 00:00:00 [facility] Influenza Virus 2014-01-16 Completed Universit y of Vaccine - Whole 00:00:00 [facility] Influenza Virus 2014-01-16 Completed Universit y of Vaccine - Whole 00:00:00 [facility] Influenza Virus 2014-01-16 Completed Universit y of Vaccine - Whole 00:00:00 [facility] Influenza Virus 2014-01-16 Completed Universit y of Vaccine - Whole 00:00:00 [facility] Influenza Virus 2014-01-16 Completed Universit y of Vaccine - Whole 00:00:00 [facility] Influenza Virus 2014-01-16 Completed Universit y of Vaccine - Whole 00:00:00 [facility] Influenza Virus 2014-01-16 Completed Universit y of Vaccine - Whole 00:00:00 [facility] Influenza Virus 2014-01-16 Completed Universit y of Vaccine - Whole 00:00:00 [facility] Influenza Virus 2014-01-16 Completed Universit y of Vaccine - Whole 00:00:00 [facility] Influenza Virus 2014-01-16 Completed Universit y of Vaccine - Whole 00:00:00 [facility] Influenza Virus 2014-01-16 Completed Universit y of Vaccine - Whole 00:00:00 [facility] Influenza Virus 2014-01-16 Completed Universit y of Vaccine - Whole 00:00:00 [facility] Influenza Virus 2014-01-16 Completed Universit y of Vaccine - Whole 00:00:00 [facility] Influenza Virus 2014-01-16 Completed Universit y of Vaccine - Whole 00:00:00 [facility] Influenza Virus 2014-01-16 Completed Universit y of Vaccine - Whole 00:00:00 [facility] Vital Signs Vital Name Observation Time Observation Value Comments Source Body height 2022-03-27 15:23:00 162.6 cm [facility] Body weight 2022-03-27 15:23:00 77.111 kg [facility] BMI 2022-03-27 15:23:00 29.18 kg/m2 [facility] Systolic blood 2022-03-13 22:42:00 161 mm[Hg] Univer sity of pressure [facility] Diastolic blood 2022-03-13 22:42:00 76 mm[Hg] Unive rsity of pressure [facility] Heart rate 2022-03-13 22:42:00 74 /min [facility] Body temperature 2022-03-13 22:42:00 37.11 Aliyah [facility] Res[facility] rate 2022-03-13 22:42:00 20 /min [facility] Body weight 2022-03-13 22:42:00 77.111 kg [facility] BMI 2022-03-13 22:42:00 29.18 kg/m2 [facility] Oxygen saturation in 2022-03-13 22:42:00 98 /min [facility] Arterial blood by [place] [facility] oxim[facility] Systolic blood 2022-03-13 20:55:00 148 mm[Hg] Univer sity of pressure [facility] Diastolic blood 2022-03-13 20:55:00 74 mm[Hg] Unive rsity of pressure [facility] Heart rate 2022-03-13 20:53:00 71 /min [facility] Body height 2022-03-13 20:53:00 162.6 cm [facility] Oxygen saturation in 2022-03-13 20:53:00 96 /min University of Arterial blood by [facility] Pulse oximetry Branch Systolic blood 2021-12-27 17:25:00 124 mm[Hg] Univer sity of pressure [facility] Diastolic blood 2021-12-27 17:25:00 80 mm[Hg] Unive rsity of pressure [facility] Heart rate 2021-12-27 17:25:00 66 /min [facility] Body height 2021-12-27 17:25:00 162.6 cm [facility] Body weight 2021-12-27 17:25:00 78.019 kg [facility] [place] [facility] BMI 2021-12-27 17:25:00 29.52 kg/m2 [facility] Oxygen saturation in 2021-12-27 17:25:00 95 /min University of Arterial blood by [facility] Pulse oximetry Branch Systolic blood 2021-03-15 16:14:00 121 mm[Hg] Univer sity of pressure [facility] Diastolic blood 2021-03-15 16:14:00 77 mm[Hg] Unive rsity of pressure [facility] Heart rate 2021-03-15 16:14:00 64 /min [facility] Body height 2021-03-15 16:14:00 160 cm [facility] Body weight 2021-03-15 16:14:00 78.019 kg [facility] BMI 2021-03-15 16:14:00 30.47 kg/m2 [facility] height 2019-12-16 08:20:00 63 [in_i] [facility] weight 2019-12-16 08:20:00 163 [lb_av] [facility] temperature 2019-12-16 08:20:00 97.7 [degF] [facility] bmi 2019-12-16 08:20:00 28.87 kg/m2 [facility] oximetry 2019-12-16 08:20:00 97 % [facility] respiratory rate 2019-12-16 08:20:00 18 /min Comm on [facility] blood pressure 2019-12-16 08:20:00 131 mm[Hg] [facility] systolic [facility] blood pressure 2019-12-16 08:20:00 68 mm[Hg] [facility] diastolic [facility] Procedures Procedure Date / Time Performing Clinician Source Performed CONSENT/REFUSAL FOR 2022-03-25 22:31:05 Doctor Unassigned, No [facility] [place] [facility] Name Medical Branch CONSENT/REFUSAL FOR 2022-03-13 22:38:04 Doctor Unassigned, No Un [facility] DIAGNOSIS AND TREATMENT Name Medical Branch EXTERNAL PROVIDER 2022-01-13 06:01:00 Doctor Unassigned, No Univ [facility] RECORDS Name Medical Branch AUTHORIZATION TO RELEASE 2021-12-27 06:01:00 Doctor Unassigned, No [facility] PHI TO [facility] Name Medical Branch SARS-COV-2 COVID-19 2021-03-15 16:36:54 Kiran Gonzalez [facility] VACCINE Medical Branch BOOSTER,0.25ML,IM (MODERNA) Plan of Care Planned Activity Planned Date Details Comments Source Future Scheduled 2022-03-27 COVID-19 VACCINE (#1) [facility] Test 08:53:47 [code = COVID-19 VACCINE (#1)] Future Scheduled 2022-03-27 COLONOSCOPY SCREENING [facility] Test 08:53:47 [code = COLONOSCOPY SCREENING] Future Scheduled 2022-03-27 SHINGLES VACCINES (1 Met [facility] Test 08:53:47 of 2) [code = SHINGLES VACCINES (1 of 2)] Future Scheduled 2022-03-27 INFLUENZA VACCINE [facility] Test 08:53:47 [code = INFLUENZA VACCINE] Future Scheduled 2020-12-26 COVID-19 VACCINE (1) [facility] Test 08:34:51 [code = COVID-19 VACCINE (1)] Future Scheduled 2020-12-26 COLONOSCOPY SCREENING [facility] Test 08:34:51 [code = COLONOSCOPY SCREENING] Future Scheduled 2020-12-26 SHINGLES VACCINES [facility] Test 08:34:51 (#1) [code = SHINGLES VACCINES (#1)] Future Scheduled 2020-12-26 INFLUENZA VACCINE Method [facility] Test 08:34:51 [code = INFLUENZA VACCINE] Encounters Start End Encounter Admission Attending Care Care Encounter Source Date/Time Date/Time Type Type Clinicians Facility Department ID 2022-03-28 Outpatient Stephany GRIMES [facility] SOR [id number] [facility] [place], STLMLC [facility] Common 11:59:33 Mary Jo [address] [facility] 2021-03-13 Outpatient Lindsey, STLMLC [facility] Common 11:58:52 Floresita [address] [facility] 2021-03-13 Outpatient Millender, STLMLC [facility] Common 11:54:56 Lindsay [address] [facility] 2021-03-13 Outpatient Millender, STLMLC [facility] Common 11:11:55 Lindsay [id number] [facility] 2020-12-13 Outpatient Stephany JACOBSEN [facility] DILLON [id number] Univers 19:07:23 JULIUS [facility] 2022-04-28 2022-04-28 Outpatient Stephany ESTRADA [facility] [id number] Univers 16:15:00 16:15:00 FRANK [facility] 2022-04-11 2022-04-11 [facility] [id number] Univers 09:00:00 09:00:00 ANYA [facility] 2022-03-28 2022-03-28 [facility] 1.2.840.114 [id number] Univers 00:00:00 00:00:00 [facility] HEALTH [id number] it y of [place] [id number] Jack as NICO?BLEA [phone] Wa gerri [address] MEDICAL OFFICE [facility] 2022-03-27 2022-03-27 Office [facility] 1.2.840.114 [id number] Univers 09:15:00 09:30:00 Visit Frank Smith [facility] [id number] it y of [place] [id number] Jack as NICO?BLEA [phone] [place] imt[address] OFFICE [facility] 2022-03-27 2022-03-27 [facility] [id number] Univers 09:15:00 09:15:00 FRANK ity [facility] 2022-03-25 2022-03-25 [facility] [id number] Univers 16:31:24 23:59:00 FRANK ity [facility] 2022-03-25 2022-03-25 [facility] 1.2.840.114 [id number] Univers 16:31:24 23:59:00 Encounter Frank VARGAS 350.1.13.10 ity of [place]2.7.2.[place] [phone] [facility] [address] 2022-03-25 2022-03-25 Orders Doctor YANIQUE 1.2.840.114 [id number] Univers 00:00:00 00:00:00 Only Unassigned, SUNNY 350.1.13.10 ity of [place]ia [facility] 4.2.7.2.686 Jack as [phone] [facility] [address] 2022-03-23 2022-03-23 Refkaitlynn Gonzalez [facility] 1.2.840.114 [id number] Univers 00:00:00 00:00:00 [facility] [id number] it y of Edward [place] 4.2.7.2.686 Jack as NICO?BLEA [phone] Wa gerri SCHUSTER [address] MEDICAL OFFICE [facility] 2022-03-21 2022-03-21 Refkaitlynn Gonzalez [facility] 1.2.840.114 [id number] Univers 00:00:00 00:00:00 Kiran HEALTH 350.1.13.10 it y of [place] 4.2.7.2.686 Jack as NICO?BLEA [phone] Wa gerri SCHUSTER 044 [facility] OFFICE [facility] 2022-03-21 2022-03-21 Telephone [facility] [id number] Univers 00:00:00 00:00:00 Frank S HEALTH 350.1.13.[address] 4.2.7.2.686 Jack as NICO?BLEA [phone] Wa gerri SCHUSTER 198 [facility] OFFICE [facility] 2022-03-17 2022-03-17 Telephone [facility] [id number] Univers 00:00:00 00:00:00 [facility] 350.1.13.10 it y of [place] 4.2.7.2.686 Jack as NICO?BLEA [phone] Wa gerri SCHUSTER 044 [facility] 2022-03-14 2022-03-14 [facility] [id number] Univers 15:00:00 23:59:[address] [facility] 2022-03-13 2022-03-13 [facility] ERT [id number] Univers 16:43:00 18:54:00 JOSE EER it y of [facility] 2022-03-13 2022-03-13 Emergency [place], [facility] [id number] Univers 16:43:00 18:54:00 Christelizabether [place] 350.1.13.10 ity of [place] 4.2.7.2.686 [place] [facility] [phone] [facility] [address] 2022-03-13 2022-03-13 [employer]estock [employer], Ang - Db [facility] 1.2.840.1 [id number] Univers 15:30:00 15:45:00 Visit Sean [facility] 350.1.13.10 ity of [place] 4.2.7.2.686 Jack as NICO?BLEA [phone] Wa gerri SCHUSTER [address] MEDICAL OFFICE BUILDING 2022-03-13 2022-03-13 Outpatient R SEAN [facility] [id number] Univers 14:45:00 15:24:[address] [facility] 2022-03-13 2022-03-13 Office [facility] 1.2.840.114 [id number] Univers 14:45:00 15:00:00 Visit [facility] 350.1.13.10 it y of [place] 4.2.7.2.686 Jack as NICO?BLEA [phone] Wa gerri SCHUSTER 198 [facility] OFFICE [facility] 2022-03-13 2022-03-13 Telephone [facility] [id number] Univers 00:00:00 00:00:00 [facility] 350.1.13.[address] [facility] [facility] 4.2.7.2.686 Jack as NICO?BLEA [phone] Wa gerri SCHUSTER [address] MEDICAL OFFICE [facility] 2022-02-19 2022-02-19 Refkaitlynn Gonzalez [facility] 1.2.840.114 [id number] Univers 00:00:00 00:00:00 Kiran HEALTH 350.1.13.10 it y of [facility] 4.2.7.2.686 Jack as NICO?BLEA [phone] Wa gerri SCHUSTER 044 [facility] OFFICE [facility] 2022-01-30 2022-01-30 Refkaitlynn Haskins [facility] 1.2.840.114 [id number] Univers 00:00:00 00:00:00 Reggie E HEALTH 350.1.13.10 it y of [place] 4.2.7.2.686 [place] [facility] [phone] [facility] PRIMARY & [facility] SPECIALTY CARE 2022-01-13 2022-01-13 Orders Doctor YANIQUE 1.2.840.114 [id number] Univers 00:00:00 00:00:00 Only Unassigned, SUNNY 350.1.13.10 ity of [place] [facility] 4.2.7.2.686 Jack as [phone] [address] 2021-12-27 2021-12-27 Outpatient R PEDRO LUIS QUEEN [facility] [id number] Univers 11:20:00 11:45:30 PEDRO LUIS QUEEN ity of [facility] 2021-12-27 2021-12-27 Office [facility] 1.2.840.114 [id number] Univers 11:20:00 11:45:30 Visit [facility] 350.1.13.[address] [facility] 4.2.7.2.686 Jack as NICO?BLEA [phone] [address] OFFICE [facility] 2021-12-27 2021-12-27 Orders Doctor YANIQUE 1.2.840.114 [id number] Univers 00:00:00 00:00:00 Only Unassigned, SUNNY 350.1.13.10 ity of [place] [facility] 4.2.7.2.686 Jack as [phone] [address] 2021-12-05 2021-12-05 Refill [facility] 1.2.840.114 [id number] Univers 00:00:00 00:00:00 [facility] 350.1.13.10 ity of [place] 4.2.7.2.686 Jack as NICO?BLEA [phone] [address] OFFICE [facility] 2021-12-05 2021-12-05 Refill Lisa [facility] 1.2.840.114 [id number] Univers 00:00:00 00:00:00 [facility] 350.1.13.10 it y of [place] [facility] 4.2.7.2.686 Jack as NICO?BLEA [phone] [address] OFFICE [facility] 2021-12-05 2021-12-05 Refill Doctor [facility] 1.2.840.114 [id number] Univers 00:00:00 00:00:00 Unassigned, HEALTH 350.1.13.10 ity of [place] 4.2.7.2.686 Jack as NICO?BLEA [phone] [address] MEDICAL OFFICE [facility] 2021-10-22 2021-10-22 [facility] 1.2.840.114 [id number] Univers 00:00:00 00:00:00 Kiran HEALTH 350.1.13.10 it y of [place] 4.2.7.2.686 Jack as NICO?BLEA [phone] [address] OFFICE [facility] 2021-10-13 2021-10-13 [facility] 1.2.840.114 [id number] Univers 00:00:00 00:00:00 Wondiful A HEALTH 350.1.13.10 ity of [place] 4.2.7.2.686 Jack as NICO?BLEA [phone] [address] OFFICE [facility] 2021-09-25 2021-09-25 [facility] 1.2.840.114 [id number] Univers 00:00:00 00:00:00 Wondiful A HEALTH 350.1.13.10 ity of [place] 4.2.7.2.686 Jack as NICO?BLEA [phone] [address] OFFICE [facility] 2021-09-17 2021-09-17 [facility] 1.2.840.114 [id number] Univers 00:00:00 00:00:00 Kiran HEALTH 350.1.13.10 it y of [place] 4.2.7.2.686 Jack as NICO?BLEA [phone] [address] OFFICE [facility] 2021-09-17 2021-09-17 [facility] 1.2.840.114 [id number] Univers 00:00:00 00:00:00 Wondiful A HEALTH 350.1.13.10 ity of [place] 4.2.7.2.686 Jack as NICO?BLEA [phone] 58 [address] OFFICE [facility] 2021-09-11 2021-09-11 [facility] [id number] Univers 09:00:00 09:00:[address] [facility] 2021-08-06 2021-08-06 [place] [facility] 1.2.840.114 [id number] Univers 00:00:00 00:00:00 Pedro Luis Gene HEALTH 350.1.13.10 ity of [place] [id number] Jack as NICO?BLEA [phone] Wa gerri SCHUSTER 092 [facility] OFFICE [facility] 2021-07-24 2021-07-24 [facility]kaitlynn [facility] 1.2.840.114 [id number] Univers 00:00:00 00:00:00 Wondiful A HEALTH 350.1.13.10 ity of [place] 4.2.7.2.686 Jack as NICO?BLEA [phone] Wa gerri SCHUSTER 044 [facility] 2021-06-06 2021-06-06 Refkaitlynn [facility] 1.2.840.114 [id number] Univers 00:00:00 00:00:00 [facility] HEALTH 350.1.13.10 ity of [place] 4.2.7.2.686 Jack as PROFESSIO [phone] Wa gerri ZIMMERMAN [address] [place] [address] ONE 2021-06-06 2021-06-06 Lloyd Gonzalez [facility] 1.2.840.114 [id number] Univers 00:00:00 00:00:00 Kiran HEALTH 350.1.13.10 it y of [place] 4.2.7.2.686 Jack as PROFESSIO [phone] Wa gerri NAL [address] [place] [address] ONE 2021-05-24 2021-05-24 Lloyd [facility] 1.2.840.114 [id number] Univers 00:00:00 00:00:00 Wondiful A HEALTH 350.1.13.10 ity of [place] 4.2.7.2.686 Jack as PROFESSIO [phone] Wa diclennie NAL [address] [place] [address] ONE 2021-04-28 2021-04-28 Lloyd [facility] 1.2.840.114 [id number] Univers 00:00:00 00:00:00 Wondiful A HEALTH 350.1.13.10 ity of [place] 4.2.7.2.686 Jack as PROFESSIO [phone] Wa gerri ZIMMERMAN [address] [place] [address] OFFICE [facility] ONE 2021-04-27 2021-04-27 [facility]kaitlynn [facility] 1.2.840.114 [id number] Univers 00:00:00 00:00:00 Wondiful A HEALTH 350.1.13.10 ity of [place] 4.2.7.2.686 Jack as PROFESSIO [phone] Wa gerri ZIMMERMAN [address] [place] [address] OFFICE [facility] ONE 2021-04-12 2021-04-12 Outpatient PEDRO LUIS ROBLERO [facility] [id number] Univers 11:20:00 12:03:17 PEDRO LUIS QUEEN [facility] 2021-04-04 2021-04-04 Lloyd Haskins [facility] 1.2.840.114 [id number] Univers 00:00:00 00:00:00 Reggie HEALTH 350.1.13.10 it y of [place] 4.2.7.2.686 Jack as PROFESSIO [phone] [facility] ZIMMERMAN [address] [place] [address] ONE 2021-03-29 2021-03-29 Refkaitlynn [facility] 1.2.840.114 [id number] Univers 00:00:00 00:00:00 Wondiful A HEALTH 350.1.13.10 ity of [place] 4.2.7.2.686 Jack as PROFESSIO [phone] Wa gerri ZIMMERMAN [address] [place] [address] ONE 2021-03-15 2021-03-15 Office [facility] 1.2.840.114 [id number] Univers 10:30:00 10:35:28 Visit [facility] 350.1.13.10 it y of [place] 4.2.7.2.686 Jack as NICO?BLEA [phone] Wa gerri SCHUSTER [address] [place] [address] 2021-03-15 2021-03-15 Outpatient Stephany GONZALEZ [facility] [id number] Univers 10:30:00 10:35:28 KIRAN doherty [facility] 2021-03-15 2021-03-15 [facility] [id number] Univers 10:30:00 10:35:28 KIRAN doherty [facility] 2021-03-15 2021-03-15 Outpatient Stephany GONZALEZ [facility] [id number] Univers 10:30:00 10:35:28 KIRAN doherty [facility] 2021-03-15 2021-03-15 Outpatient Stephany GONZALEZ [facility] [id number] Univers 10:30:00 10:35:28 KIRAN doherty [facility] 2021-03-15 2021-03-15 Outpatient Stephany GONZALEZ [facility] [id number] Univers 10:30:00 10:35:28 KIRAN doherty [facility] 2021-03-15 2021-03-15 Outpatient Stephany GONZALEZ [facility] [id number] Univers 10:30:00 10:30:00 KIRAN doherty [facility] 2021-03-06 2021-03-06 Lloyd Rios [facility] 1.2.840.114 [id number] Univers 00:00:00 00:00:00 Wondiful A HEALTH 350.1.13.10 ity of [place] 4.2.7.2.686 Jack as PROFESSIO [phone] Wa dical NAL 044 [facility] ONE 2021-02-25 2021-02-25 Lloyd Haskins [facility] .2.840.114 [id number] Univers 00:00:00 00:00:00 Reggie E HEALTH 350.1.13.10 it y of [place] 4.2.7.2.686 Jack as PROFESSIO [phone] Wa dical NAL 044 [facility] ONE 2021-02-18 2021-02-18 Outpatient Stephany LUCIO [facility] [id number] Univers 11:20:00 11:20:00 MARCUS doherty [facility] 2021-01-28 2021-01-28 Outpatient PEDRO LUIS ROBLERO [facility] [id number] Univers 00:00:00 00:00:00 PEDRO LUIS QUEEN [facility] 2021-01-08 2021-01-08 Lloyd Queen [facility] .2.840.114 [id number] Univers 00:00:00 00:00:00 [facility] [id number] ity of [place] 4.2.7.2.686 Jack as PROFESSIO [phone] [address] 2021-01-08 2021-01-08 [facility] 1.2.840.114 [id number] Univers 00:00:00 00:00:00 Pedro Luis Gene HEALTH 350.1.13.10 ity of [place] 4.2.7.2.686 Jack as NICO?BLEA [phone] [address] OFFICE [facility] 2021-01-08 2021-01-08 Telephone [facility] 1.2.840.114 [id number] Univers 00:00:00 00:00:[address] [facility] 350.1.13.10 ity [facility] [place].2.[place] PROFESS[place] [phone] [address] 2020-12-23 2020-12-23 [facility] 1.2.840.114 [id number] Univers 00:00:00 00:00:00 Wondiful A HEALTH 350.1.13.10 ity of [place] 4.2.7.2.686 Jack as PROFESSIO [phone] [address] 2020-12-10 2020-12-10 Outpatient R SYDNEY [facility] [id number] Univers 13:45:00 13:45:[address] [facility] 2020-11-16 2020-11-16 Telephone [facility] 1.2.840.114 [id number] Univers 00:00:00 00:00:00 Wondiful A Health 350.1.13.10 ity of [place] 4.2.7.2.686 Jack as Nico?Blea [phone] [address] 2020-11-16 2020-11-16 Telephone Bret, [facility] 1.2.840.114 [id number] Univers 00:00:00 00:00:00 Pedro Luis [place] 350.1.13.10 ity of [place] 4.2.7.2.[place] Profess[place] [phone] [facility] 092 [facility] 2020-11-01 2020-11-01 [facility] [id number] Univers 09:30:00 09:30:00 ANYA doherty [facility] 2020-10-29 2020-10-29 [facility] [id number] Univers 16:00:00 16:00:00 ANYA doherty [facility] 2020-10-29 2020-10-29 [facility] 1.2.840.114 [id number] Univers 00:00:00 00:00:00 [facility] 350.1.13.10 ity of [place] 4.2.7.2.686 Jack as Nico?Blea [phone] [address] Office [facility] 2020-10-27 2020-10-27 Refkaitlynn [facility] 1.2.840.114 [id number] Univers 00:00:00 00:00:00 [facility] HEALTH 350.1.13.10 it y of [place] 4.2.7.2.686 Jack as PROFESSIO [phone] [facility] 044 [place] OFFICE BUILDING ONE 2020-10-10 2020-10-10 [facility] [id number] Univers 14:15:00 23:59:00 ANYA doherty [facility] 2020-10-10 2020-10-10 [facility] 1.2.840.114 [id number] Univers 14:15:00 23:59:00 Encounter [facility] Health 350.1.13.10 ity of [place] 4.2.7.2.686 Jack as Nico?Blea [phone] [facility] 809 [place] Medical [facility] Building 2020-10-10 2020-10-10 Office [facility] 1.2.061.190 [id number] Univers 13:54:51 15:04:36 Visit Anya L Health 350.1.13.10 it y of [place] 4.2.7.2.686 Jack as Nico?Blea [phone] Wa gerri [address] Medical Office Building 2020-09-27 2020-09-27 Outpatient Stephany BREE [facility] [id number] Univers 10:45:00 10:45:00 WONDIFUL ity o f [facility] 2020-09-10 2020-09-10 Outpatient PEDRO LUIS ROBLERO [facility] [id number] Univers 09:40:00 09:40:00 BRETPEDRO LUIS [facility] 2020-09-04 2020-09-04 Outpatient R [facility] [id number] Univers 09:00:00 09:00:00 [facility] 2020-05-13 2020-05-13 Outpatient Stephany KYLE [facility] [id number] Univers 13:25:00 13:25:00 ZEINA [facility] 2020-04-15 2020-04-15 Outpatient [facility] [id number] Univers 13:20:00 13:20:00 [facility] 2020-03-29 2020-03-29 Outpatient Stephany BRETPEDRO LUIS Cruz [facility] [id number] Univers 00:00:00 00:00:00 BRET PEDRO LUIS [facility] 2020-03-19 2020-03-19 Outpatient Stephany BRETPEDRO LUIS Cruz [facility] [id number] Univers 10:40:00 10:40:00 BRETPEDRO LUIS Cruz [facility] 2020-03-08 2020-03-08 Outpatient Stephany BREE [facility] [id number] Univers 13:30:00 13:30:00 WONDIFUL ity o f [facility] 2020-01-09 2020-01-09 (TEL) STLMLC STLMLC [id number] Co mmon 00:00:00 00:00:00 [facility] 2020-01-05 2020-01-05 (TEL) STLMLC STLMLC [id number] Co mmon 00:00:00 00:00:00 [facility] 2019-12-16 2019-12-16 OFFICE STLMLC STLMLC [id number] Co mmon 00:00:00 00:00:00 VISIT [facility] PT - CHI LEVEL 4 [facility] 2019-11-30 2019-11-30 (TEL) STLMLC STLC [id number] Co mmon 00:00:00 00:00:00 [facility] 2019-09-06 2019-09-06 Outpatient [facility] [id number] Common 16:00:00 16:00:00 t [facility] it Road [facility] 2019-06-17 2019-06-17 [facility] 1.2.840.114 [id number] 06:29:00 10:10:00 Encounter Julius Vargas 350.1.13.10 [place] 4.2.7.2.686 Surgical [phone] [place] 071 2019-06-15 2019-06-15 Telephone [facility] 1.2.840.114 [id number] 00:00:00 00:00:00 Torie ELISE 350.1.13.10 [place] 4.2.7.2.686 [place] [phone] AND REN[facility] 2019-06-14 2019-06-14 Nurse Nurse, [facility] 1.2.840.114 [id number] 13:34:34 13:49:34 Visit General Vargas 350.1.13.10 Surgery [place] 4.2.7.2.686 Professio [phone] [address] 2019-06-14 2019-06-14 Outpatient R [facility] [id number] Univers 13:45:00 13:45:00 [facility] 2019-06-13 2019-06-13 [facility] [id number] Univers 11:15:00 11:15:00 JULIUS helen [facility] 2019-05-04 2019-05-04 [facility] [id number] Common 11:23:00 11:23:00 [facility] [address] Road [facility] 2019-03-22 2019-03-22 [facility] [id number] Common 10:47:00 10:47:00 [facility] it Road [facility] 2019-02-17 2019-02-17 [facility] [id number] Common 15:49:00 15:49:00 t [facility] Road [address] [facility] 2019-02-01 2019-02-01 Outpatient [facility] [id number] Common 15:16:00 15:16:00 t [facility] [address] [facility] 2019-01-20 2019-01-20 Out[facility] [id number] Common 14:00:00 14:00:00 t [facility] [address] [facility] 2019-01-05 2019-01-05 [facility] [id number] Common 17:00:00 17:00:00 t [facility] [address] [facility] 2018-11-05 2018-11-05 Outpatient [facility] [id number] Common 09:45:00 09:45:00 t [facility] [address] [facility] 2018-01-20 2018-01-20 [facility] [id number] Common 11:26:00 11:26:00 t [facility] [address] [facility] Results This patient has no known results.
[2022-03-31] MEDS ORDERED: MORPHINE 4 MG/ML SYR ONE (07:40)
[2022-03-31] MEDS ORDERED: dexAMETHasone 10 MG/ML VIAL ONE (07:40)
[2022-03-31] MEDS ORDERED: KETOROLAC 30 MG/ML INJ ONE (07:40)
--- NOTE | 2022-03-31 08:42 | ER ---
Nurse's Notes [facility] Name: Stef Dickson Age: 56 yrs Sex: Male : 1965 Arrival Date: 03/31/2022 Time: 07:15 Bed 20 Private MD: Diagnosis: Pain in right knee;Radiculopathy, lumbosacral region Presentation: 03/31 07:15 Chief complaint: Patient states: he has been having chronic right knee pain that has ap3 been getting worse over the last 2 weeks. Coronavirus screen: At this time, the client does not indicate any symptoms associated with coronavirus-19. Ebola Screen: No symptoms or risks identified at this time. Initial Sepsis Screen: Does the patient meet any 2 criteria? No. Patient's initial sepsis screen is negative. Does the patient have a suspected source of infection? No. Patient's initial sepsis screen is negative. Risk Assessment: Do you want to hurt yourself or someone else? Patient reports no desire to harm self or others. Onset of symptoms was March 17, 2022. 07:15 Method Of Arrival: EMS: [facility] ap3 07:15 Acuity: GLENN 4 ap3 Triage Assessment: 07:19 General: Appears uncomfortable, Behavior is cooperative. Pain: Complains of pain in ap3 right knee Pain currently is 10 out of 10 on a pain scale. Pain began gradually. Neuro: Level of Consciousness is awake, alert, obeys commands, Oriented to person, place, time, situation, Speech is normal. Cardiovascular: Patient's skin is warm and dry. Respiratory: Airway is patent Respiratory effort is even, unlabored, Respiratory pattern is regular, symmetrical. Musculoskeletal: Reports pain in right knee. Historical: - Allergies: 07:16 Seroquel; ap3 - Home Meds: 07:16 carbamazepine 200 mg Oral tab [Active]; lisinopril 40 mg Oral tab [Active]; amlodipine ap3 10 mg tab [Active]; risperidone 1 mg oral tab [Active]; escitalopram oxalate 20 mg oral tab [Active]; levetiracetam 500 mg oral tab [Active]; diclofenac sodium 75 mg oral TbEC for chronic knee pain [Active]; Hydrochlorothiazide 75 Oral [Active]; - PMHx: 07:16 Anxiety; AVM; Bipolar disorder; CVA; Headaches; Hypertension; Migraines; Seizures; ap3 - Immunization history:: Client reports receiving the 2nd dose of the Covid vaccine. - Social history:: Smoking status: Patient reports the use of cigarette tobacco products, smokes one-half pack cigarettes per day, Patient uses street drugs, "whatever I can get my hands on". - Family history:: not pertinent. - Hospitalizations: : No recent hospitalization is reported. Screenin:20 Abuse screen: Denies threats or abuse. Nutritional screening: No deficits noted. ap3 Tuberculosis screening: No symptoms or risk factors identified. 07:20 [facility] ED Fall Risk Assessment (Adult) History of falling in the last 3 months, ap3 including since admission No falls in past 3 months (0 pts) Confusion or Disorientation No (0 pts) Intoxicated or Sedated No (0 pts) Impaired Gait Yes (1 pt) Mobility Assist Device Used No (0 pt) Altered Elimination No (0 pt) Score/Fall Risk Level 0 - 2 = Low Risk Oriented to surroundings, Maintained a safe environment, Educated pt \\T\\ family on fall prevention, incl call for assistance when getting out of bed, Assessed \\T\\ reinforced patient's understanding of fall precautions, Provided non-skid footwear, Hourly rounding (assess needs \\T\\ fall precautionary measures) done, Used ambulatory aids as needed (educated on \\T\\ assisted with). Vital Signs: 07:15 BP 164 / 95; Pulse 74; Resp 19; Temp 97.8(O); Pulse Ox 96% on R/A; Weight 79.38 kg; ap3 Height 5 ft. 4 in. (162.56 cm); 07:15 Pain 10/10; ap3 07:51 BP 155 / 82; Pulse 77; ap3 07:15 Body Mass Index 30.04 (79.38 kg, 162.56 cm) ap3 ED Course: 07:15 Patient arrived in ED. ap3 07:15 Chava Agosto MD is Attending Physician. rn 07:16 Triage completed. ap3 07:20 Arm band placed on right wrist. ap3 07:20 Patient has correct armband on for positive identification. Bed in low position. Call ap3 light in reach. Side rails up X2. Pulse ox on. NIBP on. Door closed. Noise minimized. 07:22 Tri Bridges, RN is Primary Nurse. ap3 07:42 Inserted saline lock: 20 gauge in right antecubital area, using aseptic technique. vg1 COMPLETED BY RIRI DUEÑAS. 09:23 No provider procedures requiring assistance completed. IV discontinued, intact, ap3 bleeding controlled, No redness/swelling at site. Pressure dressing applied. Administered Medications: 07:50 Drug: morphine 4 mg Route: IVP; Infused Over: 4 mins; Site: right antecubital; ap3 09:22 Follow up: Response: No adverse reaction; Pain is decreased ap3 07:51 Drug: Decadron - Dexamethasone 10 mg Route: IVP; Site: right antecubital; ap3 09:22 Follow up: Response: No adverse reaction; Pain is decreased ap3 07:51 Drug: Ketorolac 15 mg Route: IVP; Site: right antecubital; ap3 09:23 Follow up: Response: No adverse reaction; Pain is decreased ap3 Medication: 07:20 VIS not applicable for this client. ap3 Outcome: 08:42 Discharge ordered by . rn 09:23 Discharged to home ambulatory. ap3 09:23 Condition: good 09:23 Discharge instructions given to patient, Instructed on discharge instructions, follow up and referral plans. medication usage, Demonstrated understanding of instructions, follow-up care, medications, Prescriptions given X 2. 09:27 Patient left the ED. ap3 Signatures: Chava Agosto MD MD rn Prokisch, Amanda, RN RN ap3 Vivian Dickson RN RN vg1
--- NOTE | 2022-03-31 08:42 | EDPHYS ---
Physician Documentation [facility] Name: Stef Dickson Age: 56 yrs Sex: Male : 1965 Arrival Date: 03/31/2022 Time: 07:15 Bed 20 Private MD: ED Physician Chava Agosto HPI: 03/31 08:14 This 56 yrs old Male presents to ER via EMS with complaints of leg pain, Knee rn Pain. 08:14 The patient presents with pain, that is chronic. The complaints affect the right hip, rn lateral aspect of right thigh and right knee. 08:14 Onset: The symptoms/episode began/occurred 2 week(s) ago. Modifying factors: The rn symptoms are alleviated by nothing. the symptoms are aggravated by movement, weight bearing. Associated signs and symptoms: Pertinent negatives fever, numbness, swelling, tingling, vomiting, warmth, weakness. Severity of symptoms: At their worst the symptoms were moderate, in the emergency department the symptoms are unchanged. The patient has experienced similar episodes in the past, chronically. The patient has been recently seen by a physician:. Pt reports chronic RLE pain, no recent injury, has scheduled surgery for right knee in upcoming weeks. Pain chronic but worse over last 2 weeks. No fever. No swelling. No calf pain. NO weakness. . Historical: - Allergies: 07:16 Seroquel; ap3 - Home Meds: 07:16 carbamazepine 200 mg Oral tab [Active]; lisinopril 40 mg Oral tab [Active]; amlodipine ap3 10 mg tab [Active]; risperidone 1 mg oral tab [Active]; escitalopram oxalate 20 mg oral tab [Active]; levetiracetam 500 mg oral tab [Active]; diclofenac sodium 75 mg oral TbEC for chronic knee pain [Active]; Hydrochlorothiazide 75 Oral [Active]; - PMHx: 07:16 Anxiety; AVM; Bipolar disorder; CVA; Headaches; Hypertension; Migraines; Seizures; ap3 - Immunization history:: Client reports receiving the 2nd dose of the Covid vaccine. - Social history:: Smoking status: Patient reports the use of cigarette tobacco products, smokes one-half pack cigarettes per day, Patient uses street drugs, "whatever I can get my hands on". - Family history:: not pertinent. - Hospitalizations: : No recent hospitalization is reported. ROS: 08:14 Constitutional: Negative for fever, chills, and weight loss, Eyes: Negative for injury, rn pain, redness, and discharge, Cardiovascular: Negative for chest pain, palpitations, and edema, Respiratory: Negative for shortness of breath, cough, wheezing, and pleuritic chest pain, Abdomen/GI: Negative for abdominal pain, nausea, vomiting, diarrhea, and constipation, Back: Negative for injury and pain, MS/Extremity: Negative for injury and deformity, Skin: Negative for injury, rash, and discoloration, Neuro: Negative for headache, weakness, numbness, tingling, and seizure. Exam: 08:14 Constitutional: This is a well developed, well nourished patient who is awake, alert, rn appears in pain Cardiovascular: Regular rate and rhythm. No pulse deficits. Respiratory: No increased work of breathing, no retractions or nasal flaring. Abdomen/GI: Soft, non-tender Skin: Warm, dry with normal turgor. Normal color with no rashes, no lesions, and no evidence of cellulitis. MS/ Extremity: Pulses equal, no cyanosis. Neurovascular intact. Full, normal range of motion. Equal circumference. No focal swelling. No skin changes. No warmth or erythema of knee. No evidence of trauma. Neuro: Awake and alert, GCS 15, oriented to person, place, time, and situation. Cranial nerves II-XII grossly intact. Motor strength 5/5 in all extremities. Sensory grossly intact Vital Signs: 07:15 BP 164 / 95; Pulse 74; Resp 19; Temp 97.8(O); Pulse Ox 96% on R/A; Weight 79.38 kg; ap3 Height 5 ft. 4 in. (162.56 cm); 07:15 Pain 10/10; ap3 07:51 BP 155 / 82; Pulse 77; ap3 07:15 Body Mass Index 30.04 (79.38 kg, 162.56 cm) ap3 MDM: 07:15 Patient medically screened. rn 08:41 Differential diagnosis: arthritis, chronic pain, radiculopathy. Data reviewed: vital rn signs, nurses notes, and as a result, I will discharge patient. Counseling: I had a detailed discussion with the patient and/or guardian regarding: the historical points, exam findings, and any diagnostic results supporting the discharge/admit diagnosis, the need for outpatient follow up, to return to the emergency department if symptoms worsen or persist or if there are any questions or concerns that arise at home. Special discussion: I discussed with the patient/guardian in detail that at this point there is no indication for admission to the hospital. It is understood, however, that if the symptoms persist or worsen the patient needs to return immediately for re-evaluation. Based on the history and exam findings, there is no indication for further emergent testing or inpatient evaluation. I discussed with the patient/guardian the need to see the orthopedic surgeon for further evaluation of the symptoms. I discussed with the patient/guardian the need to see the primary care provider for further evaluation of the symptoms. 03/31 07:32 Order name: IV Start; Complete Time: 07:40 rn Administered Medications: 07:50 Drug: morphine 4 mg Route: IVP; Infused Over: 4 mins; Site: right antecubital; ap3 09:22 Follow up: Response: No adverse reaction; Pain is decreased ap3 07:51 Drug: Decadron - Dexamethasone 10 mg Route: IVP; Site: right antecubital; ap3 09:22 Follow up: Response: No adverse reaction; Pain is decreased ap3 07:51 Drug: Ketorolac 15 mg Route: IVP; Site: right antecubital; ap3 09:23 Follow up: Response: No adverse reaction; Pain is decreased ap3 Disposition Summary: 03/31/22 08:42 Discharge Ordered Location: Home rn Problem: chronic rn Symptoms: have improved rn Condition: Stable rn Diagnosis - Pain in right knee rn - Radiculopathy, lumbosacral region rn Followup: rn - With: Private Physician - When: As needed - Reason: Recheck today's complaints, Re-evaluation by your physician Discharge Instructions: - Discharge Summary Sheet rn - Joint Pain rn - Lumbosacral Radiculopathy rn - Musculoskeletal Pain rn - Pinched Nerve rn Forms: - Medication Reconciliation Form rn - Thank You Letter rn - Antibiotic newborn photographer - Prescription Opioid Use rn Prescriptions: - Medrol (Armond) 4 mg Oral Tablets, Dose Pack - take 1 tablet by ORAL route as directed - follow package instructions; 1 rn packet; Refills: 0, Product Selection Permitted - Tylenol-Codeine #3 300 mg-30 mg Oral - take 1 tablet by ORAL route every 8-10 hours As needed; 12 tablet; Refills: 0, rn Product Selection Permitted Signatures: Cahva Agosto MD MD rn Prokisch, Amanda, RN RN ap3
[2022-03-31 09:35] VITALS: BP 155/82; TEMP 97.8; O2SAT 96
== END 2022-03-31 09:27 | disposition home or self-care (01) ==
LOC: ER 07:11
DX: M25.561 Pain in right knee (principal); M54.17 Radiculopathy, lumbosacral region; I10 Essential (primary) hypertension; Z88.8 Allergy status to other drugs, medicaments and biological substances
CPT/HCPCS: 96375; 96374; 99284; J1100

== ENCOUNTER 2024-01-22 08:41 | Emergency (ER) | payer OTHER ==
[2024-01-22] MEDS ORDERED: NA CHLORIDE 0.9% 1,000 ML ONE ×2 (08:56→11:09)
[2024-01-22] MEDS ORDERED: ACETAMINOPHEN 500 MG TAB ONE (08:59)
--- NOTE | 2024-01-22 09:05 | RAD REPORT ---
EXAMINATION: ONE VIEW CHEST XR CLINICAL INDICATION: Male, 58 years old.,COUGH TECHNIQUE: Frontal chest projection is submitted. Examination is limited by patient positioning and t echnique. COMPARISON: 01/29/2011 FINDINGS: The lungs are hypoinflated but clear. No pneumothorax or sizable effusion. The heart is normal in si ze. Mediastinal contours are unremarkable. IMPRESSION: No acute intrathoracic abnormalities.
[2024-01-22 09:20] LABS: Absolute Eosinophils 0.1 K/uL (0-0.5); Absolute Lymphocytes (CBC) 1.8 K/uL (0.7-4.9); Absolute Monocytes 1.4 K/uL (0.1-1.3); Absolute Neutrophil 8.5 K/uL (1.8-8.0); Basophils % 0.3 % (0-1.3); Hematocrit 42.3 % (39.6-49.0); Hemoglobin 14.5 g/dL (13.6-17.9); Lymphocytes % 15.4 % (15.3-44.8); MCH 31.8 pg (27.0-35.0); MCHC 34.3 g/dL (32.0-36.0); MCV 92.8 fL (80-100); MPV 6.9 fL (7.6-11.3); Monocytes % 11.6 % (3.3-12.3); Neutrophils % 71.7 % (41.7-73.7); Nucleated Red Blood Cells % 0.1 % (0-0); Platelets 297 thou/uL (152-406); RBC Red Blood Cell Count 4.56 M/uL (4.33-5.43); Red Cell Distribution Width 13.6 % (12.1-15.2)
[2024-01-22 09:22] LABS: PT Prothrombin Time 10.2 SECONDS (9.4-12.5); Protime INR 0.91
[2024-01-22 09:41] LABS: Albumin 3.7 g/dL (3.4-5.0); Albumin/Globulin Ratio 0.9 (1.1-1.8); Anion Gap 7.8 mEq/L (5.0-15.0); Bilirubin Direct 0.2 mg/dL (0-0.2); Bilirubin Indirect, Calculated 0.4 mg/dL (0.2-0.8); Bilirubin Total 0.6 mg/dL (0.2-1.0); Globulin 3.9 g/dL (2.3-3.5); Potassium 3.8 mEq/L (3.5-5.1); Protein, Total 7.6 g/dL (6.4-8.2)
[2024-01-22 09:45] LABS: SARS-CoV-2 Antigen CONTROL BLUE LINE VIS/BG OK; SARS-CoV-2 Antigen Rapid Res Negative (Negative)
--- NOTE | 2024-01-22 12:14 | RAD REPORT ---
EXAM: CT brain without contrast HISTORY: Headache;Pain COMPARISON: None TECHNIQUE: Multiple contiguous axial images were obtained and a CT of the brain without contrast. Sag ittal and coronal reformats were performed. FINDINGS: No evidence of hydrocephalus, intracranial hemorrhage, or extra-axial fluid collection. Left opercular and parietal encephalomalacia suggesting sequelae of remote surgery or ischemia. Overl destiney craniotomy flap. The calvarium is intact. The visualized paranasal sinuses and mastoid air cells are essentially clear . IMPRESSION: No evidence of acute intracranial abnormality. Chronic findings as above. EXAM: CT of the cervical spine without contrast HISTORY: Headache;Pain COMPARISON: None TECHNIQUE: Multiple contiguous axial images were obtained in a CT of the cervical spine without contr ast. Sagittal and coronal reformats were performed. FINDINGS: The vertebral bodies demonstrate normal height and alignment. No evidence of acute fracture or subluxation.. Moderate multilevel degenerative changes are present. No prevertebral soft tissue swelling is seen. The posterior facets are well aligned. Normal alignment of the skull base with the cervical spine is seen. The lung apices are unremarkable. IMPRESSION: No evidence of acute osseous abnormality of the cervical spine. Moderate multilevel degenerative good ges.
[2024-01-22] MEDS ORDERED: NA CHLORIDE 0.9% 2,000 ML ONE (12:21)
[2024-01-22] MEDS ORDERED: NA CHLORIDE 0.9% 500 ML ONE (12:21)
[2024-01-22] MEDS ORDERED: VANCOMYCIN 1 GM/VIAL ONE (12:26)
[2024-01-22] MEDS ORDERED: NA CHLORIDE 0.9% 250 ML ONE (12:27)
[2024-01-22] MEDS ORDERED: CEFTRIAXONE 2000 MG/VIAL ONE (12:27)
--- NOTE | 2024-01-22 12:31 | ER ---
Nurse's Notes [facility] Name: Stef Dickson Age: 58 yrs Sex: Male : 1965 Arrival Date: 01/22/2024 Time: 08:41 Bed 7 Private MD: Diagnosis: Discitis, unspecified, cervical region;Fever, unspecified;Other malaise and fatigue Presentation: 01/21 08:49 Chief complaint: Patient states: neck pain x 1 week, pain to entire body since ss yesterday. Denies fever/ cough. Coronavirus screen: Client denies travel out of the [place] in the last 14 days. Ebola Screen: Patient denies exposure to infectious person. Patient denies travel to an Ebola-affected area in the 21 days before illness onset. Initial Sepsis Screen: Does the patient meet any 2 criteria? No. Patient's initial sepsis screen is negative. Does the patient have a suspected source of infection? No. Patient's initial sepsis screen is negative. Risk Assessment: Do you want to hurt yourself or someone else? Patient reports no desire to harm self or others. Onset of symptoms was January 16, 2024. 08:49 Method Of Arrival: Ambulatory ss 08:49 Acuity: GLENN 3 ss Historical: - Allergies: 08:51 Seroquel; ss - Home Meds: 09:02 amlodipine 10 mg tab daily [Active]; carbamazepine 200 mg Oral tab [Active]; iw escitalopram oxalate 20 mg Oral tab [Active]; gabapentin 600 mg oral tablet 2 tabs 3 times per day [Active]; hydrochlorothiazide 25 mg Oral tablet daily [Active]; levetiracetam 500 mg Oral tab 2 times per day [Active]; lisinopril 40 mg Oral tab daily [Active]; omeprazole 20 mg oral capsule,delayed release (e.c.) daily [Active]; loratadine 10 mg oral capsule daily [Active]; - PMHx: 08:51 Anxiety; AVM; Bipolar disorder; CVA; Headaches; Hypertension; Migraines; Seizures; ss - Immunization history:: Client reports receiving the 2nd dose of the Covid vaccine. - Infectious Disease History:: Denies. - Social history:: Smoking status: Patient reports the use of cigarette tobacco products, smokes one pack cigarettes per day. - Family history:: not pertinent. Screenin:20 [facility] ED Fall Risk Assessment (Adult) History of falling in the last 3 months, hb including since admission No falls in past 3 months (0 pts) Confusion or Disorientation No (0 pts) Intoxicated or Sedated No (0 pts) Impaired Gait No (0 pts) Mobility Assist Device Used No (0 pt) Altered Elimination No (0 pt) Score/Fall Risk Level 0 - 2 = Low Risk Oriented to surroundings, Maintained a safe environment, Educated pt \T\ family on fall prevention, incl call for assistance when getting out of bed. Abuse screen: Denies threats or abuse. Denies injuries from another. Nutritional screening: No deficits noted. Tuberculosis screening: No symptoms or risk factors identified. Assessment: 09:20 General: Appears in no apparent distress. Behavior is calm, cooperative. Pain: Pain hb currently is 10 out of 10 on a pain scale. Neuro: Level of Consciousness is awake, alert, obeys commands, Oriented to person, place, time, situation, Reports headache. Cardiovascular: Patient's skin is warm and dry. Respiratory: Respiratory effort is even, unlabored, Respiratory pattern is regular, symmetrical. GI: No signs and/or symptoms were reported involving the gastrointestinal system. : No signs and/or symptoms were reported regarding the genitourinary system. EENT: Reports nasal congestion. Derm: Skin is pink, warm \T\ dry. Musculoskeletal: Reports body aches. 11:41 Reassessment: Patient appears in no apparent distress at this time. Patient and/or hb family updated on plan of care and expected duration. Pain level reassessed. 12:45 Reassessment: Dr. Gaitan at bedside to discuss POC with pt and mother, pt refusing LP hb at this time. MRI pending. Mother remains at bedside. 13:03 Reassessment: Patient appears in no apparent distress at this time. Patient and/or hb family updated on plan of care and expected duration. Pain level reassessed. 13:37 Reassessment: Report called to Nalini DUEÑAS at [facility]. hb 14:00 Reassessment: Patient appears in no apparent distress at this time. No changes from hb previously documented assessment. Vital Signs: 08:49 BP 133 / 81; Pulse 98; Resp 16; Temp 99.4(O); Pulse Ox 95% on R/A; Weight 82.1 kg; ss Height 5 ft. 3 in. ; Pain 10/10; 09:37 BP 128 / 78; Pulse 84; Resp 16; Pulse Ox 100% on R/A; hb 10:33 BP 104 / 69; Pulse 83; Resp 15; Pulse Ox 89% on R/A; MAP 80 mmHg; Pain 0/10; tm6 11:40 BP 97 / 70; Pulse 81; Resp 14; Pulse Ox 93% on R/A; hb 13:02 BP 106 / 59; Pulse 66; Resp 14; Pulse Ox 95% on R/A; hb 14:01 BP 117 / 68; Pulse 66; Resp 14; Pulse Ox 96% on R/A; hb 08:49 Body Mass Index 32.06 (82.10 kg, 160.02 cm) ss 08:49 Pain Scale: Adult ss 10:33 Pain Scale: Adult tm6 ED Course: 08:44 Patient arrived in ED. mg5 08:45 Nash Gaitan MD is Attending Physician. corry 08:51 Triage completed. ss 08:51 Arm band placed on right wrist. ss 08:58 Alena Lewis, LEANA is Primary Nurse. iw 09:01 XRAY Chest (1 view) In Process Unspecified. EDMS 09:20 Patient has correct armband on for positive identification. Provided Education on: use hb of call light . 09:33 Inserted saline lock: 20 gauge in left wrist, using aseptic technique. Blood collected. nh2 Flushed with 10 mL NS. 09:34 Client placed on continuous cardiac and pulse oximetry monitoring. NIBP monitoring hb applied. vehicle monitor technician on. Pulse ox on. NIBP on. 09:34 Strep Sent. nh2 09:34 SARS RAPID Sent. nh2 09:34 Flu Sent. nh2 09:34 Lipase Sent. nh2 09:34 LFT's Sent. nh2 09:34 Basic Metabolic Panel Sent. nh2 09:34 Magnesium Sent. nh2 09:34 NT PRO-BNP Sent. nh2 09:34 Troponin HS Sent. nh2 09:34 Initial lab(s) drawn, by ED staff, sent to lab. hb 11:16 CT Head C Spine In Process Unspecified. EDMS 12:30 Inserted saline lock: 20 gauge in right antecubital area, using aseptic technique. hb Flushed with 10 mL NS. 12:32 attempted to initiate a transfer with the [facility] placed on eb automatic hold. 12:45 initiated a transfer with Gale from the [facility]. 12:55 administrative approval given by Gale Weathers Rn/ patient has been accepted to [facility] ED/ Dr. Paco Allison has accepted the patient in transfer without conference with Dr. Gaitan / report to be called to [phone]. 14:14 Patient moved to [facility] via stretcher. hb 14:20 Urinalysis w/ reflexes Sent. ss 14:47 C Spine Wo Cont In Process Unspecified. EDMS 15:19 No provider procedures requiring assistance completed. Patient transferred, IV remains tm6 in place. Administered Medications: 11:48 Discontinued: ns 0.9% 1000 ml IV at 1000 ml once; to be given as a bolus over 60 minutescha 09:14 Drug: NS 0.9% IV 1000 ml IV at 1 bolus Per protocol; to be given as a bolus over 60 iw minutes Route: IV; Rate: 1 bolus; Site: left wrist; 10:39 Follow up: Response: No adverse reaction; IV Status: Completed infusion; IV Intake: tm6 1000ml 09:14 Drug: Acetaminophen PO 1000 mg PO once Route: PO; iw 10:39 Follow up: Response: No adverse reaction tm6 11:41 Drug: NS 0.9% IV 1000 ml IV at 1000 ml once; to be given as a bolus over 60 minutes hb Route: IV; Rate: 1000 ml; Site: left forearm; 12:48 Follow up: Response: No adverse reaction; IV Status: Completed infusion; IV Intake: tm6 1000ml 12:21 Drug: NS 0.9% IV (30 ml/kg) 30 ml/kg IV at bolus once; Sepsis Protocol; to be given as hb a bolus over 90 minutes Route: IV; Rate: bolus; Site: right antecubital; 14:45 Follow up: Response: No adverse reaction; IV Status: Completed infusion; IV Intake: tm6 2463ml 12:27 Drug: Rocephin IV 2 grams IV at per protocol once; Given slow IV push per pharmarcy hb instructions Route: IV; Rate: per protocol; Site: right antecubital; 12:35 Follow up: Response: No adverse reaction; IV Status: Completed infusion; IV Intake: [id number] 12:44 Drug: vancoMYCIN IVPB 1 grams IVPB once over 2 hrs Route: IVPB; Infused Over: 2 hrs; hb Site: left forearm; 14:44 Follow up: Response: No adverse reaction; IV Status: Completed infusion; IV Intake: tm6 250ml 13:00 Drug: Keppra IV 1000 mg IV at per protocol once Route: IV; Rate: per protocol; Site: hb right antecubital; 14:00 Follow up: Response: No adverse reaction; IV Status: Completed infusion; IV Intake: tm6 100ml 13:01 Drug: Decadron - Dexamethasone IVP 10 mg IVP once Route: IVP; Site: right antecubital; 13:02 Follow up: Response: No adverse reaction tm6 Medication: 09:20 VIS not applicable for this client. hb Intake: 10:39 IV: 1000ml; Total: 1000ml. tm6 12:35 IV: 10ml; Total: 1010ml. tm6 12:48 IV: 1000ml; Total: 2010ml. tm6 14:00 IV: 100ml; Total: 2110ml. tm6 14:44 IV: 250ml; Total: 2360ml. tm6 14:45 IV: 2463ml; Total: 4823ml. tm6 Outcome: 12:30 ER care complete, transfer ordered by MD. wheatley 15:19 Transferred by ground [facility] to [facility], tm6 15:19 Condition: stable 15:19 Instructed on the need for transfer, 15:22 Patient left the ED. tm6 Signatures: Dispatcher [employer] EDMS Nash Gaitan MD MD cha Williams, Irene, RN RN Medina Stoddard RN RN Oriana Rucker RN RN Elis Wu [facility]5 Juan Regan RN RN tm6 Jose Francisco Shaw Jr [facility] Corrections: (The following items were deleted from the chart) 10:46 10:33 BP 104 / 69; Pulse 83bpm; Resp 15bpm; Pulse Ox 98% RA; MAP 80 mmHg; Pain 0/10, tm6 Adult; tm6 14:00 13:59 Reassessment: Report called to Nalini DUEÑAS at [facility]. [facility] 14:01 13:03 Reassessment: Patient appears in no apparent distress at this time. Patient hb and/or family updated on plan of care and expected duration. Pain level reassessed. Patient is alert, oriented x 3, equal unlabored respirations, skin warm/dry/pink. hb
--- NOTE | 2024-01-22 12:31 | EDPHYS ---
Physician Documentation [facility] Name: Stef Dickson Age: 58 yrs Sex: Male : 1965 Arrival Date: 01/22/2024 Time: 08:41 Bed 7 Private MD: [facility] Physician Nash Gaitan HPI: 01/21 10:58 This 58 yrs old Male presents to ER via Ambulatory with complaints of Neck corry Pain, >24Hrs Old, body aches. 10:58 The patient or guardian complains of decreased range of motion, pain, that is acute. corry The symptoms are located at the cervical spine. Onset: The symptoms/episode began/occurred 3 day(s) ago. Context: The problem was sustained at an unknown location, The neck injury/problem resulted from from unknown cause. Associated signs and symptoms: The patient has no apparent associated signs or symptoms. Modifying factors: The symptoms are alleviated by remaining still, the symptoms are aggravated by nothing. Severity of symptoms: At their worst the symptoms were moderate, 3 day(s) ago, in the emergency department the symptoms are unchanged, are actually worse. The patient has not experienced similar symptoms in the past. Historical: - Allergies: 08:51 Seroquel; ss - Home Meds: 09:02 amlodipine 10 mg tab daily [Active]; carbamazepine 200 mg Oral tab [Active]; iw escitalopram oxalate 20 mg Oral tab [Active]; gabapentin 600 mg oral tablet 2 tabs 3 times per day [Active]; hydrochlorothiazide 25 mg Oral tablet daily [Active]; levetiracetam 500 mg Oral tab 2 times per day [Active]; lisinopril 40 mg Oral tab daily [Active]; omeprazole 20 mg oral capsule,delayed release (e.c.) daily [Active]; loratadine 10 mg oral capsule daily [Active]; - PMHx: 08:51 Anxiety; AVM; Bipolar disorder; CVA; Headaches; Hypertension; Migraines; Seizures; ss - Immunization history:: Client reports receiving the 2nd dose of the Covid vaccine. - Infectious Disease History:: Denies. - Social history:: Smoking status: Patient reports the use of cigarette tobacco products, smokes one pack cigarettes per day. - Family history:: not pertinent. ROS: 10:58 Eyes: Negative for injury, pain, redness, and discharge, ENT: Negative for injury, corry pain, and discharge, Cardiovascular: Negative for chest pain, palpitations, and edema, Respiratory: Negative for shortness of breath, cough, wheezing, and pleuritic chest pain, Abdomen/GI: Negative for abdominal pain, nausea, vomiting, diarrhea, and constipation, Back: Negative for injury and pain, : Negative for injury, bleeding, discharge, and swelling, MS/Extremity: Negative for injury and deformity, Skin: Negative for injury, rash, and discoloration, Neuro: Negative for headache, weakness, numbness, tingling, and seizure, Psych: Negative for depression, anxiety, suicide ideation, homicidal ideation, and hallucinations, Allergy/Immunology: Negative for hives, rash, and allergies, Endocrine: Negative for neck swelling, polydipsia, polyuria, polyphagia, and marked weight changes, Hematologic/Lymphatic: Negative for swollen nodes, abnormal bleeding, and unusual bruising, 10:58 Constitutional: Positive for body aches, chills, fatigue, fever, malaise, 10:58 Neck: Positive for pain with movement, pain at rest, 10:58 Respiratory: Positive for cough, "sounds productive", 10:58 Neuro: Positive for headache, weakness, neck pain in all directions, no trauma, Exam: 11:02 Head/Face: Normocephalic, atraumatic. Eyes: Pupils equal round and reactive to light, corry extra-ocular motions intact. Lids and lashes normal. Conjunctiva and sclera are non-icteric and not injected. Cornea within normal limits. Periorbital areas with no swelling, redness, or edema. ENT: Nares patent. No nasal discharge, no septal abnormalities noted. Tympanic membranes are normal and external auditory canals are clear. Oropharynx with no redness, swelling, or masses, exudates, or evidence of obstruction, uvula midline. Mucous membranes moist. Chest/axilla: Normal chest wall appearance and motion. Nontender with no deformity. No lesions are appreciated. Cardiovascular: Regular rate and rhythm with a normal S1 and S2. No gallops, murmurs, or rubs. Normal PMI, no JVD. No pulse deficits. Abdomen/GI: Soft, non-tender, with normal bowel sounds. No distension or tympany. No guarding or rebound. No evidence of tenderness throughout. Back: No spinal tenderness. No costovertebral tenderness. Full range of motion. Male : Normal genitalia with no discharge or lesions. Skin: Warm, dry with normal turgor. Normal color with no rashes, no lesions, and no evidence of cellulitis. MS/ Extremity: Pulses equal, no cyanosis. Neurovascular intact. Full, normal range of motion., bilateral aka Neuro: Awake and alert, GCS 15, oriented to person, place, time, and situation. Cranial nerves II-XII grossly intact. Motor strength 5/5 in all extremities. Sensory grossly intact. Cerebellar exam normal. Normal gait. Psych: Awake, alert, with orientation to person, place and time. Behavior, mood, and affect are within normal limits. 11:02 Constitutional: The patient appears febrile, 11:02 Neck: External neck: is normal, no acute changes, C-spine: appears grossly normal, Thyroid: appears normal, Trachea: is midline with no obvious abnormalities, no acute changes, ROM/movement: limited range of motion, that is moderate, Meningeal signs: are not present, nuchal rigidity, is not appreciated, pain in all directions, 11:02 ECG was reviewed by the Attending Physician. Vital Signs: 08:49 BP 133 / 81; Pulse 98; Resp 16; Temp 99.4(O); Pulse Ox 95% on R/A; Weight 82.1 kg; ss Height 5 ft. 3 in. ; Pain 10/10; 09:37 BP 128 / 78; Pulse 84; Resp 16; Pulse Ox 100% on R/A; hb 10:33 BP 104 / 69; Pulse 83; Resp 15; Pulse Ox 89% on R/A; MAP 80 mmHg; Pain 0/10; tm6 11:40 BP 97 / 70; Pulse 81; Resp 14; Pulse Ox 93% on R/A; hb 13:02 BP 106 / 59; Pulse 66; Resp 14; Pulse Ox 95% on R/A; hb 14:01 BP 117 / 68; Pulse 66; Resp 14; Pulse Ox 96% on R/A; hb 08:49 Body Mass Index 32.06 (82.10 kg, 160.02 cm) ss 08:49 Pain Scale: Adult ss 10:33 Pain Scale: Adult tm6 MDM: 08:56 Medical Screening Exam initiated corry 11:03 Differential diagnosis: arthritis, bacterial meningitis, Cervical Disc Herniation [facility] Cervical Discogenic Pain Cervical Raiculopathy Cervical Spondylosis cervical strain, Degenerative Disc Disease fracture, Neck Contusion Spondylolisthesis Spondylosis torticollis, Unstable Vertebral Fracture Vertical Compression Injury viral meningitis. Data reviewed: vital signs, nurses notes, EMS record, lab test result(s), EKG, radiologic studies, CT scan, plain films. Consideration of Admission/Observation Escalation of care including admission/observation considered. I considered the following discharge prescriptions or medication management in the emergency department Medications were administered in the Emergency Department. See MAR. Independent interpretation of the following test(s) in the Emergency Department EKG: See my EKG interpretation above. 12:31 ED course: pt refused spinal tap , prefers [place] 01/21 08:56 Order name: Strep [facility] 01/21 08:46 Order name: Basic Metabolic Panel; Complete Time: 11:48 [facility] 01/21 08:46 Order name: CBC with Diff; Complete Time: 10:45 [facility] 01/21 08:46 Order name: LFT's; Complete Time: 11:48 [facility] 01/21 08:46 Order name: Magnesium; Complete Time: 11:48 [facility] 01/21 08:46 Order name: NT PRO-BNP; Complete Time: 11:48 [facility] 01/21 08:46 Order name: PT-INR; Complete Time: 10:45 [facility] 01/21 08:46 Order name: Troponin HS; Complete Time: 11:48 [facility] 01/21 08:46 Order name: Lipase; Complete Time: 11:48 [facility] 01/21 08:46 Order name: Urinalysis w/ reflexes; Complete Time: 15:08 [facility] 01/21 08:56 Order name: Flu; Complete Time: 10:45 [facility] 01/21 08:56 Order name: SARS RAPID; Complete Time: 10:45 [facility] 01/21 09:49 Order name: Throat Culture [facility] 01/21 10:54 Order name: Blood Culture Adult (2) [facility] 01/21 10:54 Order name: Lactate w/ 2H reflex if indic.; Complete Time: 12:09 [facility] 01/21 11:08 Order name: Carbamazepine (Tegretol) Level; Complete Time: 11:48 [facility] 01/21 12:46 Order name: ABG [facility] 01/21 08:46 Order name: XRAY Chest (1 view); Complete Time: 10:45 [facility] 01/21 10:54 Order name: CT Head C Spine; Complete Time: 12:15 [facility] 01/21 08:46 Order name: EKG; Complete Time: 08:46 [facility] 01/21 08:46 Order name: Cardiac monitoring; Complete Time: 09:41 [facility] 01/21 08:46 Order name: EKG - Nurse/Tech; Complete Time: 09:41 [facility] 01/21 08:46 Order name: IV Saline Lock; Complete Time: 09:15 [facility] 01/21 08:46 Order name: Labs collected and sent; Complete Time: 09:15 [facility] 01/21 08:46 Order name: O2 Per Protocol; Complete Time: 09:15 [facility] 01/21 08:46 Order name: O2 Sat Monitoring; Complete Time: 09:15 [facility] EC:02 Rate is 88 beats/min. Rhythm is regular. QRS Ten Sleep is Normal. VA interval is normal. QRS corry interval is normal. QT interval is normal. No Q waves. T waves are Normal. No ST changes noted. Clinical impression: NSR w/ Non-specific ST/T Changes and No evidence of ischemia. Interpreted by me. Reviewed by me. Administered Medications: 11:48 Discontinued: ns 0.9% 1000 ml IV at 1000 ml once; to be given as a bolus over 60 minutescha 09:14 Drug: NS 0.9% IV 1000 ml IV at 1 bolus Per protocol; to be given as a bolus over 60 iw minutes Route: IV; Rate: 1 bolus; Site: left wrist; 10:39 Follow up: Response: No adverse reaction; IV Status: Completed infusion; IV Intake: tm6 1000ml 09:14 Drug: Acetaminophen PO 1000 mg PO once Route: PO; iw 10:39 Follow up: Response: No adverse reaction tm6 11:41 Drug: NS 0.9% IV 1000 ml IV at 1000 ml once; to be given as a bolus over 60 minutes hb Route: IV; Rate: 1000 ml; Site: left forearm; 12:48 Follow up: Response: No adverse reaction; IV Status: Completed infusion; IV Intake: tm6 1000ml 12:21 Drug: NS 0.9% IV (30 ml/kg) 30 ml/kg IV at bolus once; Sepsis Protocol; to be given as hb a bolus over 90 minutes Route: IV; Rate: bolus; Site: right antecubital; 14:45 Follow up: Response: No adverse reaction; IV Status: Completed infusion; IV Intake: tm6 2463ml 12:27 Drug: Rocephin IV 2 grams IV at per protocol once; Given slow IV push per pharmarcy hb instructions Route: IV; Rate: per protocol; Site: right antecubital; 12:35 Follow up: Response: No adverse reaction; IV Status: Completed infusion; IV Intake: [id number] 12:44 Drug: vancoMYCIN IVPB 1 grams IVPB once over 2 hrs Route: IVPB; Infused Over: 2 hrs; hb Site: left forearm; 14:44 Follow up: Response: No adverse reaction; IV Status: Completed infusion; IV Intake: tm6 250ml 13:00 Drug: Keppra IV 1000 mg IV at per protocol once Route: IV; Rate: per protocol; Site: hb right antecubital; 14:00 Follow up: Response: No adverse reaction; IV Status: Completed infusion; IV Intake: tm6 100ml 13:01 Drug: Decadron - Dexamethasone IVP 10 mg IVP once Route: IVP; Site: right antecubital; 13:02 Follow up: Response: No adverse reaction tm6 Disposition Summary: 01/22/24 12:30 Transfer Ordered Notes: Transfer Location: [facility] corry Reason: Higher level of care corry Condition: Fair corry Problem: new corry Symptoms: have improved corry Accepting Physician: [facility](01/22/24 15:22) tm6 Diagnosis - Discitis, unspecified, cervical region corry - Fever, unspecified corry - Other malaise and fatigue corry Forms: - Medication Reconciliation Form corry - SBAR form corry Signatures: Dispatcher [employer] EDNash Sosa MD MD cha Williams, Irene RN LEANA Medina Stoddard RN RN Oriana Hernanedz RN RN hb Masterson, Tawney RN RN tm6 Corrections: (The following items were deleted from the chart) 08:46 08:46 BASIC METABOLIC PANEL+C.LAB.BRZ ordered. EDMS EDMS 08:46 08:46 CBC+H.LAB.BRZ ordered. EDMS EDMS 08:46 08:46 HEPATIC FUNCTION+C.LAB.BRZ ordered. EDMS EDMS 08:46 08:46 MAGNESIUM+C.LAB.BRZ ordered. EDMS EDMS 08:46 08:46 PROBNP+C.LAB.BRZ ordered. EDMS EDMS 08:46 08:46 PROTIME (+INR)+COAG.LAB.BRZ ordered. EDMS EDMS 08:47 08:46 Troponin High Sensitivity+C.LAB.BRZ ordered. EDMS EDMS 08:47 08:46 LIPASE+C.LAB.BRZ ordered. EDMS EDMS 08:47 08:46 Urinalysis+U.LAB.BRZ ordered. EDMS EDMS 08:57 08:57 Influenza Screen (A \\T\\ B)+BA.LAB.BRZ ordered. EDMS EDMS 08:57 08:57 SARS-COV-2 Antigen Rapid+I.LAB.BRZ ordered. EDMS EDMS 08:57 08:57 Group A Streptococcus Rapid Sc+BA.LAB.BRZ ordered. EDMS EDMS 11:05 11:05 LAB ADD ON+C.LAB.BRZ ordered. EDMS EDMS 12:47 12:46 Arterial Blood Gas+RC.LAB.BRZ ordered. EDMS EDMS 15:22 12:30 to [facility] tm6
[2024-01-22] MEDS ORDERED: LEVETIRACETAM 500 MG/5 ML VIAL IV ONE (12:52)
[2024-01-22] MEDS ORDERED: dexAMETHasone 10 MG/ML VIAL ONE (12:52)
[2024-01-22] MEDS ORDERED: NA CHLORIDE 0.9% 100 ML ONE (12:53)
[2024-01-22 14:26] LABS: Specific Gravity 1.022 (1.005-1.030); Urine Bilirubin NEGATIVE (Negative); Urine Blood Negative (Negative); Urine Clarity Clear (Clear); Urine Color Light-Yellow (Yellow); Urine Glucose NEGATIVE (Negative); Urine Ketones NEGATIVE (Negative); Urine Microscopic Reflex YN NO UMIC; Urine Nitrite NEGATIVE (Negative); Urine Protein NEGATIVE (Negative); Urine Urobilinogen Normal (Normal)
[2024-01-22 17:30] VITALS: TEMP 99.4
[2024-01-22 17:36] VITALS: BP 117/68; O2SAT 96
== END 2024-01-22 15:22 | disposition short-term general hospital (02) ==
LOC: ER 08:41
DX: M46.42 Discitis, unspecified, cervical region (principal); R53.81 Other malaise; R53.83 Other fatigue; R05.9 Cough, unspecified; Z11.52 Encounter for screening for COVID-19; I10 Essential (primary) hypertension; F17.210 Nicotine dependence, cigarettes, uncomplicated; Z86.73 Personal history of transient ischemic attack (TIA), and cerebral infarction without residual deficits
CPT/HCPCS: 87040 ×2; 87070; 85025; 80048; 36415; 83735; 80156; 85610; 80076; 87081; 83605; 81003; 84484; 83690; 83880; 87804 ×2; 70450; 72125; 71045; 99285; 87811; J1953; J1100; J0696; J7050; J7040; J7030 ×3